=== PATIENT | male | born 1940 | race Caucasian/White ===

== ENCOUNTER 2019-04-28 13:43 | Outpatient (CLI) | payer MEDICARE, SELFPAY ==
--- NOTE | ~2019-04-28 | US_ITS ---
EXAMINATION: US pelvic limited EXAM DATE: 04/28/2019 14:41 INDICATION: Urinary retention. States unable to fill bladder. TECHNIQUE: Pelvic transabdominal sonogram was performed. There are multiple grayscale and Doppler im ages available for interpretation. There is no prior study for comparison. FINDINGS: Prevoid bladder volume was 78 mL, postvoid bladder volume was 30 mL. Bladder unremarkable. IMPRESSION: Small post void residual of 30 mL. Reviewed, dictated and finalized at location A. [employer]
== END 2019-04-28 13:44 | disposition home or self-care (01) ==
PROVIDERS: PCP Family Medicine; Visit Provider Internal Medicine Nephrology
DX: R33.9 Retention of urine, unspecified (principal)
CPT/HCPCS: 76857

== ENCOUNTER 2019-05-05 17:59 | Inpatient (IN) | payer MEDICARE, SELFPAY ==
[2019-05-05] VITALS (22 sets, daily range): BP systolic 86–117; BP diastolic 52–75; PULSE 68–102; RESP 14–26; TEMP 36.3–37.3; O2SAT 88–99; BMI 28.0
--- NOTE | ~2019-05-05 | CT_ITS ---
EXAMINATION: CT brain wo con DATE: 05/05/2019 19:27 INDICATION: Weakness. History of CVA. TECHNIQUE: Computed tomography (CT) of the head was performed without intravenous contrast. The dose- length product was 605.33 mGy-cm. Automated exposure control and iterative reconstruction technique w ere employed. COMPARISON: CT dated 12/31/2018 FINDINGS: There are chronic bilateral lacunar infarctions. Mild generalized atrophy. No acute intracr anial hemorrhage, infarction, mass or mass effect. Chronic right frontal lobe infarction, centrum gurwinder iovale. No ventriculomegaly or midline shift. Basilar cisterns are patent. There is intracranial athe rosclerosis. Paranasal sinuses and mastoids are pneumatized. No depressed skull fractures. IMPRESSION: 1. Chronic focal right frontal lobe and bilateral lacunar infarctions. 2: No acute intracranial abnormality. 3: Chronic age-related findings. Reviewed, dictated and finalized at location A.
--- NOTE | ~2019-05-05 | XR_ITS ---
XR chest 2V 05/05/2019 19:31 Indication: Cough and dyspnea. Nausea. Procedure: 2 view chest Comparison: Comparison to multiple prior studies sequentially, with oldest reviewed study dated 03/2018. Findings: Moderate cardiomegaly. Status post median sternotomy for CABG. Asymmetric left-sided airspa ce disease. Portacatheter tip in the condyle aspect of the SVC. Pacemaker lead stable. Status post me chen sternotomy for CABG. No significant pleural effusion or pneumothorax. No acute osseous abnormali ty. Impression: 1: Asymmetric left-sided airspace disease may represent asymmetric edema or pneumonia. 2: Cardiomegaly. Reviewed, dictated and finalized at location A. Impression: 1: Asymmetric left-sided airspace disease may represent asymmetric edema or pne umonia. 2: Cardiomegaly.
--- NOTE | 2019-05-05 18:33 | ED.NAVMDI ---
HPI - Nausea/Vomiting/Diarrhea General Chief complaint: Nausea/Vomiting/Diarrhea Stated complaint: N/V/D Time Seen by Provider: 05/05/19 18:30 Source: patient and RN notes reviewed Mode of arrival: EMS Limitations: no limitations History of Present Illness HPI Narrative: A 79 y/o male presents to the ED with N/V/D for the past couple days. He reports associated fever, chills, generalized weakness, SOB, and a productive cough. He states that he saw his PCP yesterday but denies being given any prescriptions, so he decided to come to the ED today. He notes that he is on Peritoneal dialysis everyday. He denies any ABD pain, CP, or vision changes. MD elicited complaint: nausea, vomiting and diarrhea Pertinent past history: abdominal surgery Onset (ago): day(s) (a couple) Associated nausea: Yes Associated abdominal pain: No Location of pain: none Associated symptoms: cough (productive), fever/chills, shortness of breath and weakness (generalized) Related Data Home Medications Medication Instructions Recorded Confirmed isosorbide mononitrate 60 mg PO DAILY PRN 05/05/19 warfarin [Coumadin] 2 mg PO DAILY@1700 05/05/19 Allergies Allergy/AdvReac Type Severity Reaction Status Date / Time albuterol Allergy Intermediate Other Verified 05/04/19 10:27 cat dander Allergy Unknown Unknown Verified 05/04/19 10:27 cigarette smoke Allergy Unknown Unknown Verified 05/04/19 10:27 simvastatin Allergy Unknown Other,irregular Verified 05/05/19 18:20 heartbeat Sulfa (Sulfonamide Allergy Unknown Unknown Verified 05/04/19 10:27 Antibiotics) CATS Allergy Unknown Unknown Uncoded 05/04/19 10:27 Review of Systems Review of Systems: Narrative: CONSTITUTIONAL: Reports fever, chills, and generalized weakness. EYES: Denies visual changes. CARDIOVASCULAR: Denies chest pain. RESPIRATORY: Reports a productive cough and dyspnea. GASTROINTESTINAL: Denies abdominal pain. Reports nausea, vomiting, or diarrhea. All systems reviewed & are unremarkable except as noted in HPI and below PMFSH Past Medical History Medical History Anemia Anxiety Atrial fibrillation BPH (benign prostatic hyperplasia) CAD (coronary artery disease) CAD (coronary artery disease) CHF (congestive heart failure) CVA (cerebral vascular accident) Depression ESRD (end stage renal disease) History of CVA (cerebrovascular accident) without residual deficits Hypertension Hypothyroidism LV (left ventricular) mural thrombus Lymphoma Peritoneal dialysis catheter dysfunction Port-A-Cath in place Rectal fistula Surgical History Surgical History AICD (automatic cardioverter/defibrillator) present H/O hernia repair History of coronary artery stent placement History of tonsillectomy Hx of cholecystectomy S/P CABG x 4 Family History Family History Sibling Family history of cardiovascular disease Father Family history of primary malignant neoplasm of liver Social History Social History Smoking status: Never smoker Second hand tobacco smoke exposure: No Alcohol intake: former Substance use: never Substance use type: does not use Additional living arrangements comments: son stays with him at night 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 HEAD: Normocephalic, atraumatic. EYES: PERRLA and EOMI. ENT: Nares clear, no rhinorrhea or epistaxis. Mucous membranes moist. NECK: Supple. CHEST: Clear to auscultation. No respiratory distress. Defibrillator in lt chest and port in rt chest. HEART: Regular rate and rhythm. No murmur heard. Normal peripheral pulses. ABDOMEN: Soft, nontender,
--- NOTE | 2019-05-05 18:50 | ECG_ITS ---
Measurements Intervals [place] Rate: 105 P: AL: 0 QRS: -47 QRSD: 149 T: 131 QT: 388 QTc: 514 Interpretive Statements ATRIAL FLUTTER/TACHYCARDIA WITH RAPID VENTRICULAR RESPONSE VENTRICULAR PREMATURE COMPLEX LEFT AXIS DEVIATION LEFT BUNDLE BRANCH BLOCK ABNORMAL ECG Electronically Signed On 05-06-2019 10:26:07 CDT by Julio C Hancock D.O.
[2019-05-05] MEDS: SODIUM CHLORIDE 0.9% IV 1,000 ML 999 ML IV CONT (19:10)
[2019-05-05 19:12] LABS: Glucose Point of Care 141 (65-105)
[2019-05-05 19:21] LABS: Basophils Percent Auto 0.3 % (0.2-1.2); Eosinophils Percent Auto 0.1 % (0-4.4); Hematocrit 34.2 % (42.0-52.0); Hemoglobin 11.1 g/dL (14.0-18.0); Immature Granulocyte Absolute 0.05 K/mm3 (0.00-0.031); Immature Granulocyte Percent A 0.4 % (0-0.5); Lymphocytes Absolute Auto 0.34 K/mm3 (0.9-3.2); Lymphocytes Percent Auto 2.9 % (18.3-44.2); Mean Corpuscular HGB Conc 32.5 g/dl (32-36); Mean Corpuscular Hemoglobin 32.9 pg (26-34); Mean Corpuscular Volume 101.5 fl (80-100); Monocytes Absolute Auto 0.8 K/mm3 (0.1-0.6); Monocytes Percent Auto 6.4 % (2.6-8.5); Neutrophils Absolute Auto 10.7 K/mm3 (1.3-6.7); Neutrophils Percent Auto 89.9 % (45.5-73.1); Red Blood Count 3.37 M/mm3 (4.6-6.20); Red Cell Distribution Width 15.4 % (11.5-14.5); White Blood Count 11.9 K/mm3 (4.5-10.0)
[2019-05-05 19:45] LABS: NT Pro B Type Natriuretic Pept > 35000 PG/ML (5-100); Troponin I 0.017 ng/mL (0.000-0.034)
[2019-05-05 19:46] LABS: Prothrombin Time 53.8 Seconds (11.1-14.7)
[2019-05-05 19:48] LABS: Albumin Level 3.3 g/dL (3.5-5.1); Aspartate Amino Transferase 25 U/L (17-59); Bilirubin,Total 0.7 mg/dL (0.2-1.3); Blood Urea Nitrogen 39 mg/dL (9-20); Carbon Dioxide 22 mmol/L (22-30); Estimated CRCL calculation 7 ml/min; Estimated Glomerular Filt Rate 6
[2019-05-05 19:49] LABS: INR 6.1
[2019-05-05 20:32] LABS: Alanine Aminotransferase 32 U/L (4-50); Alkaline Phosphatase 117 U/L (38-126); Calcium 8.3 mg/dL (8.4-10.2); Chloride 95 mmol/L (98-107); Glucose 129 mg/dL (75-110); Lipase 110 U/L (23-300); Potassium 3.9 mmol/L (3.4-5.0); Sodium 134 mmol/L (137-145)
[2019-05-05 20:35] LABS: CRP 11.2 mg/dL (<1.0)
--- NOTE | 2019-05-05 21:10 | PM.IMHP ---
H&P: HPI History of Present Illness Chief complaint: Fever, cough, nausea, vomiting, diarrhea Narrative: This is a 79 year old male well known to our Hospitalist service for multiple previous admissions who is known to have ESRD on peritoneal dialysis, paroxysmal atrial fibrillation on warfarin therapy, HTN, and previous CVA who presented to the hospital with a complaint of fever, chills, productive cough and shortness of breath over the past few days. The patient saw his PCP yesterday who told him to keep an eye on his symptoms and keep him informed. Today the patient attempted to go to the bathroom but was so weak he only made it half way out of the bed and couldn't stand up. The patient's son brought him to the hospital for evaluation. Currently he denies any chest pain, sore throat, ear pain, palpitations, wheezing, abdominal pain, worsening LE swelling, dysuria, hemautira, or rectal bleeding. Today he has an episode of diarrhea. The patient was evaluated in the ER tonight and found to have a supratherapeutic INR of 6.1. CXR demonstrated asymmetric left-sided airspace disease. The patient was started on IV antibiotics in the ER and we have been asked to admit him to the hospital for further care. The patient reports he did injur his right arm the other day and has had ecchymosis for a few days now. The patient has no other complaints at this time. Review of Systems Review of Systems: All systems reviewed & are unremarkable except as noted in HPI and below PMFSH Past Medical History Medical History Anemia Anxiety Atrial fibrillation BPH (benign prostatic hyperplasia) CAD (coronary artery disease) CAD (coronary artery disease) CHF (congestive heart failure) CVA (cerebral vascular accident) Depression ESRD (end stage renal disease) History of CVA (cerebrovascular accident) without residual deficits Hypertension Hypothyroidism LV (left ventricular) mural thrombus Lymphoma Peritoneal dialysis catheter dysfunction Port-A-Cath in place Rectal fistula Surgical History Surgical History AICD (automatic cardioverter/defibrillator) present H/O hernia repair History of coronary artery stent placement History of tonsillectomy Hx of cholecystectomy S/P CABG x 4 Family History Family History Sibling Family history of cardiovascular disease Father Family history of primary malignant neoplasm of liver Social History Social History Smoking status: Never smoker Second hand tobacco smoke exposure: No Alcohol intake: never Substance use: never Substance use type: does not use Additional living arrangements comments: son stays with him at night 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 Gender identity (if verbalized by the patient): Male Spiritual care concerns: No Agree to blood products: Yes Meds Home Medications and Allergies Home Medications Medication Instructions Recorded Confirmed Type acetaminophen [Mapap 650 mg PO Q4H PRN #30 tablet 01/02/19 05/05/19 Rx (acetaminophen)] Triphrocaps 1 cap PO DAILY #30 cap 01/22/19 05/05/19 Rx loperamide 2 mg PO PRN PRN #60 cap 01/22/19 05/05/19 Rx magnesium oxide 400 mg PO QAM #30 tablet 01/22/19 05/05/19 Rx metoprolol tartrate 25 mg PO BID #30 tablet 01/22/19 05/05/19 Rx pravastatin 80 mg PO DAILY #30 tablet 01/22/19 05/05/19 Rx sertraline 50 mg PO DAILY #30 tablet 01/22/19 05/05/19 Rx levothyroxine 75 mcg tablet 75 mcg PO DAILY #30 tablet 03/10/19 05/05/19 Rx clonazepam 0.5 mg tablet 0.5 mg PO HS #30 tablet 04/29/19 05/05/19 Rx epoetin albertina [Epogen] 10,000 units SUBCUT MONTHLY 05/05/19 05/05/19 History ergocalciferol (vitamin D2) 1,250 mcg PO WEEKLY 05/05/19 05/05/19 History [Vitamin D2] isosorbide mononitrate 60 mg PO SANTOS
--- NOTE | 2019-05-05 22:44 | ADMGEN ---
This patient, Yordy Darke, was admitted to 2 Medical Room 248-01. Patient/family oriented to hospital policies and general routines including ID bracelet, bed and alarms, visiting hours, pain management, procedures, bathroom and other care routines, personal items, smoking policy, room service/diet, and visiting hours. Valuables list has been completed. Information on how to activate the Rapid Response Team has been discussed. Patient/Family are encouraged to report perceived risks to care and to ask questions if they do not understand what they are told or what they should do.
[2019-05-06] VITALS (8 sets, daily range): BP systolic 88–112; BP diastolic 58–76; PULSE 63–84; RESP 16–20; TEMP 36.3–37.7; O2SAT 93–99
[2019-05-06 05:16] LABS: Basophils Percent Auto 0.3 % (0.2-1.2); Eosinophils Percent Auto 0.2 % (0-4.4); Hematocrit 30.7 % (42.0-52.0); Immature Granulocyte Absolute 0.05 K/mm3 (0.00-0.031); Immature Granulocyte Percent A 0.5 % (0-0.5); Lymphocytes Absolute Auto 1.13 K/mm3 (0.9-3.2); Mean Corpuscular HGB Conc 32.6 g/dl (32-36); Mean Corpuscular Hemoglobin 32.9 pg (26-34); Mean Platelet Volume 11.1 fl (7.4-10.4); Monocytes Absolute Auto 0.9 K/mm3 (0.1-0.6); Monocytes Percent Auto 8.6 % (2.6-8.5); Neutrophils Absolute Auto 8.2 K/mm3 (1.3-6.7); Neutrophils Percent Auto 79.4 % (45.5-73.1); Platelet Count Result 146 k/mm3 (150-375); Red Blood Count 3.04 M/mm3 (4.6-6.20); Red Cell Distribution Width 15.2 % (11.5-14.5); White Blood Count 10.3 K/mm3 (4.5-10.0)
[2019-05-06 05:17] LABS: Prothrombin Time 64.8 Seconds (11.1-14.7)
[2019-05-06 05:19] LABS: Partial Thromboplastin Time 92.3 SECONDS (22.3-36.8)
[2019-05-06 05:23] LABS: Blood Urea Nitrogen 43 mg/dL (9-20); Calcium 7.8 mg/dL (8.4-10.2); Carbon Dioxide 23 mmol/L (22-30); Chloride 98 mmol/L (98-107); Estimated CRCL calculation 7 ml/min; Estimated Glomerular Filt Rate 6; Glucose 81 mg/dL (75-110); Magnesium 1.3 mg/dL (1.6-2.3); Potassium 4.4 mmol/L (3.4-5.0); Sodium 132 mmol/L (137-145)
[2019-05-06] MEDS: LEVOTHYROXINE SODIUM 75 MCG TABLET PO (05:47)
[2019-05-06 05:53] LABS: INR 7.8
[2019-05-06] MEDS: PHYTONADIONE 2.5 MG TAB PO (06:48)
[2019-05-06] MEDS: PRAVASTATIN SODIUM 20 MG TABLET 80 MG PO (08:47)
[2019-05-06] MEDS: SERTRALINE HCL 50 MG TABLET PO (08:47)
[2019-05-06] MEDS: MAGNESIUM OXIDE 400 MG TABLET PO (08:47)
[2019-05-06] MEDS: POTASSIUM CHLORIDE 10 MEQ TABLET.ER 30 MEQ PO (08:47)
[2019-05-06] MEDS: VITAMIN B CMPLX/VIT C/FOLIC AC 1 CAPSULE 1 CAP PO (08:58)
[2019-05-06] MEDS: METOPROLOL TARTRATE 25 MG TABLET PO (09:03)
--- NOTE | 2019-05-06 10:04 | PM.CNCAR ---
Assessment and Plan Additional Plan 79-year-old white male with complex cardiac history including coronary artery disease, severely depressed left ventricular systolic function, aortic valve stenosis, previous CABG and PCI and about presence of a AICD. He enters the hospital with a febrile illness and is being treated with antibiotics. His INR because of his illness is supratherapeutic and his Coumadin is appropriately been placed on hold. There are no specific cardiac recommendations at this time other than to resume the Coumadin when his INR gets down to her approaches 2.0. Clay Groves MD [facility] History of Present Illness History of Present Illness Consult date/time: Date of service: 05/06/19 10:04 Reason For Visit: Fever, cough, nausea, vomiting, diarrhea Narrative: This is a 79-year-old patient with a history of coronary artery disease, valvular heart disease and paroxysmal atrial fibrillation. He also has a severe ischemic cardiomyopathy and has an indwelling defibrillator. The patient's of follow-up machine grainer is Dr. Cm of our practice. He was hospitalized yesterday with a a febrile illness coughing and generalized weakness and was admitted for further evaluation and management. The patient also has end-stage renal disease and is on chronic peritoneal dialysis. He has had generalized weakness coughing and some sinus congestion/headache. He for the last 4-5 days prior to admission had had fevers at home with temperatures up to about 100.5? F orally. He was seen in the emergency room and admitted to the hospital service for further evaluation and management. None of the notes in the chart talk about her express any particular concern regarding his cardiac status so it was initially not clear why the point of 1st us seeing the patient in consultation was intended to be. According to the patient we were consulted to see him because his INR is high and out of normal range. He is anticoagulated with Coumadin because of his history of paroxysmal atrial fibrillation. He is currently is sinus rhythm with occasional PVCs. His Coumadin dosage currently has been on 2 mg per day. INR was 6.1 on admission obviously his Coumadin was placed on hold. The patient has a history of coronary artery disease and underwent bypass grafting in 2000. He had PCI performed with stenting in [facility] in 2013 and I believe a defibrillator implanted around the same time. He developed a history of a problematic, symptomatic ascitic fluid that was recurrent was found apparently to be related to lymphoma. He is being treated with chemotherapy by Dr. Haskins. He denies any current or recent symptoms with ischemic type chest pain he is not aware of any palpitations orthopnea PND or edema. He is also known to have aortic valve disease follow-up echoes at our office have demonstrated with a valve area of about 1.0 cm2 he is very low ejection fraction in the 20-25% range by several recent/previous echocardiograms. Review of Systems Constitutional: Constitutional: Reports chills Comments: Fever as noted in the HPI Eyes: Eyes: Reports no additional eye complaints ENT: Reports nasal congestion Cardiovascular: Cardiovascular: Reports no additional cardiovascular complaints Respiratory: Respiratory: Reports cough Comments: Cough is primarily dry and nonproductive Gastrointestinal: Gastrointestinal: Reports no additional gastrointestinal complaints Musculoskeletal: Musculoskeletal: Reports no additional musculoskeletal complaints Integumentary/Breasts: Skin/Breast: Reports system reviewed and no additional complaints, except as docu Neurologic: Reports system reviewed and no additional complaints, except as documented Endocrine: Endocrine: Reports no additional endocrine complaints Hematologic/Lymphatic: Hematologic/Lymphatic: Reports easy bruising PMFSH Past Medical History Medical History
--- NOTE | 2019-05-06 12:47 | PM.IMPN ---
Progress Note: A&P Assessment and Plan (1) Pneumonia: Qualifiers: Laterality: left Lung location: lower lobe of lung Pneumonia type: due to unspecified organism Qualified Code(s): J18.9 - Pneumonia, unspecified organism Code(s): J18.9 - Pneumonia, unspecified organism Status: Acute Assessment and Plan: May very well be viral pneumonia vs bacterial We will continue IV Rocephin and azithro that were started in the ER. Blood and sputum cultures pending Continue bronchodilators. Antitussive medications. Light IV hydration overnight Continue symptomatic treatment Monitor (2) Weakness: Code(s): R53.1 - Weakness Status: Acute Assessment and Plan: Likely secondary to chronic debility and acute illness. This has improved today PT/OT evaluation ordered (3) Supratherapeutic INR: Code(s): R79.1 - Abnormal coagulation profile Status: Acute Assessment and Plan: INR 7.8 today. Cardiology consulted and appreciate recommendations. No signs of acute active hemorrhaging. H&H stable Hold Warfarin Monitor PT/INR Resume warfarin when appropriate per Cardiology recommendations (4) HLD (hyperlipidemia): Qualifiers: Hyperlipidemia type: unspecified Qualified Code(s): E78.5 - Hyperlipidemia, unspecified Code(s): E78.5 - Hyperlipidemia, unspecified Status: Chronic Assessment and Plan: Continue pravastatin. (5) Hypothyroidism: Qualifiers: Hypothyroidism type: acquired Qualified Code(s): E03.9 - Hypothyroidism, unspecified Code(s): E03.9 - Hypothyroidism, unspecified Status: Chronic Assessment and Plan: Continue levothyroxine. (6) CHF (congestive heart failure): Qualifiers: Heart failure type: unspecified Heart failure chronicity: chronic Qualified Code(s): I50.9 - Heart failure, unspecified Code(s): I50.9 - Heart failure, unspecified Status: Chronic Assessment and Plan: Well compensated. Monitor fluid status, Is and Os and daily weights. (7) Atrial fibrillation: Qualifiers: Atrial fibrillation type: longstanding persistent Qualified Code(s): I48.11 - Longstanding persistent atrial fibrillation Code(s): I48.91 - Unspecified atrial fibrillation Status: Chronic Assessment and Plan: The patient is currently anticoagulated. Resumed metoprolol today Continue metoprolol Monitor closely Hold metoprolol if hypotensive (8) ESRD (end stage renal disease): Code(s): N18.6 - End stage renal disease Status: Chronic Assessment and Plan: Nephrology consultation to continue peritoneal dialysis. (9) Hypertension: Qualifiers: Hypertension type: essential hypertension Qualified Code(s): I10 - Essential (primary) hypertension Code(s): I10 - Essential (primary) hypertension Status: Chronic Assessment and Plan: Stable. Improved from yesterday; 110s sys today. Monitor blood pressure. Hold home isosorbide mononitrate; Resume when appropriate. Additional Plan Subjective Date/time seen: 05/06/19 12:47 Interval history: Patient is a 79 yo M well known to our Hospitalist service for multiple previous admissions who is known to have ESRD on peritoneal dialysis, paroxysmal atrial fibrillation on warfarin therapy, HTN, and previous CVA who is here for treatment of PNA and evaluation for supratherapeutic INR. Patient tells me he feels much better today. His N/V and cough have improved. No subjective fevers. He feels his strength has improved as he wa
--- NOTE | 2019-05-06 17:36 | PM.CNNEP ---
Assessment and Plan Assessment and plan (1) ESRD (end stage renal disease): Code(s): N18.6 - End stage renal disease Status: Chronic (2) Pneumonia: Qualifiers: Laterality: left Lung location: lower lobe of lung Pneumonia type: due to unspecified organism Qualified Code(s): J18.9 - Pneumonia, unspecified organism Code(s): J18.9 - Pneumonia, unspecified organism Status: Acute (3) Supratherapeutic INR: Code(s): R79.1 - Abnormal coagulation profile Status: Acute (4) Ischemic cardiomyopathy: Code(s): I25.5 - Ischemic cardiomyopathy Status: Acute Assessment and Plan: . (5) Weakness: Code(s): R53.1 - Weakness Status: Acute Assessment and Plan: . Additional Plan Yordy has end stage renal disease. He will started back on his nightly peritoneal dialysis regimen tonight. He also appears to have pneumonia as evidenced by imaging studies in the ER. He has been started on IV antibiotic therapy for treatment of this issue with cultures pending at this time. His anemia and other CKD parameters appear to be relatively stable at this time. As I already mentioned, I will reinstitute his peritoneal dialysis this evening more so to maintain stability in his volume status and electrolytes as well as provide clearance of the uremic toxins that maybe potentiate by this underlying infection. I will follow the trend of his H and H, reinstitute Epogen therapy if his hemoglobin continues to drop, but currently he is within range if not at goal. I will continue to follow his CKD parameters while he remains hospitalized and make further interventions with his dialysis treatment and medications as deemed necessary. I will continue to follow the patient with you while he remains hospitalized and make further recommendations during his hospital course. Thank you for allowing me to participate in care of this patient. History of Present Illness Reason for Consult Consult date: 05/06/19 Reason for consult: end stage renal disease Chief Complaint Chief complaint: Pneumonia, Elevated BNP, Weakness History of Present Illness Narrative: The patient is a 79 year old male with a past medical history as outlined below who presented to the [facility] ER with a complaints of fever, chills, productive cough and shortness of breath. These symptoms have been present for the last several days. He saw his PCP yesterday who told him to keep an eye on his symptoms and alert him if his symptoms worsened or changed. On the day of admission, he attempted to use the bathroom but was so weak he only made it half way out of the bed and could not stand or ambulate any further. The patient's son brought him to the hospital for further evaluation. He reports no chest pain, sore throat, palpitations, wheezing, abdominal pain, worsening LE swelling, hematochezia or melena. Workup and evaluation in the emergency room demonstrated the patient to be hemodynamically stable and in no acute distress. Routine blood test demonstrated labs consistent with his known history of end-stage renal disease was also found to have a supratherapeutic INR of 6.1. His chest x-ray was noteworthy for a left-sided left-sided airspace disease concerning for possible pneumonia. Appropriate cultures were obtained and he was started on IV antibiotic therapy and subsequently admitted to the hospital for further evaluation and therapy. Renal consultation was requested due to his end-stage renal disease. The patient normally performs daily peritoneal dialysis every evening and has been doing reasonably well with his PD treatments in general. He normally he dialyzes via [facility] under the care of Dr. Ed Velazco. From a dialysis perspective, he has been doing reasonably well with stability in his volume status, electrolytes, and adequate clearance of the uremic toxins. Currently, at
[2019-05-06] MEDS: ACETAMINOPHEN 325 MG TABLET 650 MG PO (20:45)
[2019-05-06] MEDS: SODIUM CHLORIDE 0.9% IV 500 ML 999 ML IV CONT (22:20)
[2019-05-07] VITALS (9 sets, daily range): BP systolic 102–122; BP diastolic 60–72; PULSE 70–87; RESP 18–20; TEMP 36.3–37.1; O2SAT 97–100
[2019-05-07 05:43] LABS: Basophils Percent Auto 0.9 % (0.2-1.2); Eosinophils Absolute Auto 0.2 K/mm3 (0-0.3); Eosinophils Percent Auto 3.2 % (0-4.4); Hematocrit 30.5 % (42.0-52.0); Immature Granulocyte Absolute 0.03 K/mm3 (0.00-0.031); Immature Granulocyte Percent A 0.6 % (0-0.5); Lymphocytes Absolute Auto 1.17 K/mm3 (0.9-3.2); Lymphocytes Percent Auto 25.3 % (18.3-44.2); Mean Corpuscular HGB Conc 32.8 g/dl (32-36); Mean Corpuscular Hemoglobin 32.9 pg (26-34); Mean Corpuscular Volume 100.3 fl (80-100); Mean Platelet Volume 10.7 fl (7.4-10.4); Monocytes Absolute Auto 0.6 K/mm3 (0.1-0.6); Monocytes Percent Auto 13.8 % (2.6-8.5); Neutrophils Absolute Auto 2.6 K/mm3 (1.3-6.7); Neutrophils Percent Auto 56.2 % (45.5-73.1); Platelet Count Result 147 k/mm3 (150-375); Red Blood Count 3.04 M/mm3 (4.6-6.20); Red Cell Distribution Width 15.1 % (11.5-14.5); White Blood Count 4.6 K/mm3 (4.5-10.0)
[2019-05-07 05:48] LABS: INR 3.2; Prothrombin Time 32.1 Seconds (11.1-14.7)
[2019-05-07 05:49] LABS: Partial Thromboplastin Time 83.2 SECONDS (22.3-36.8)
[2019-05-07 06:00] LABS: Albumin Level 2.7 g/dL (3.5-5.1); Blood Urea Nitrogen 39 mg/dL (9-20); Calcium 7.9 mg/dL (8.4-10.2); Carbon Dioxide 24 mmol/L (22-30); Chloride 98 mmol/L (98-107); Estimated CRCL calculation 6 ml/min; Estimated Glomerular Filt Rate 6; Glucose 135 mg/dL (75-110); Magnesium 1.4 mg/dL (1.6-2.3); Phosphorus 4.5 mg/dL (2.5-4.5); Potassium 3.5 mmol/L (3.4-5.0); Sodium 131 mmol/L (137-145)
[2019-05-07] MEDS: LEVOTHYROXINE SODIUM 75 MCG TABLET PO (06:04)
--- NOTE | 2019-05-07 09:02 | PM.IMPN ---
Progress Note: A&P Assessment and Plan (1) Pneumonia: Qualifiers: Laterality: left Lung location: lower lobe of lung Pneumonia type: due to unspecified organism Qualified Code(s): J18.9 - Pneumonia, unspecified organism Code(s): J18.9 - Pneumonia, unspecified organism Status: Acute Assessment and Plan: May very well be viral pneumonia vs bacterial We will continue IV Rocephin and azithro that were started in the ER. Blood cultures negative to date. Sputum culture to be collected Continue bronchodilators. Antitussive medications. Light IV hydration overnight Continue symptomatic treatment Monitor (2) Weakness: Code(s): R53.1 - Weakness Status: Acute Assessment and Plan: Likely secondary to chronic debility and acute illness. This has improved today PT/OT evaluation ordered (3) Supratherapeutic INR: Code(s): R79.1 - Abnormal coagulation profile Status: Acute Assessment and Plan: INR 3.2 today. Cardiology consulted and appreciate recommendations. No signs of acute active hemorrhaging. H&H stable Hold Warfarin Monitor PT/INR Resume warfarin when appropriate per Cardiology recommendations (4) HLD (hyperlipidemia): Qualifiers: Hyperlipidemia type: unspecified Qualified Code(s): E78.5 - Hyperlipidemia, unspecified Code(s): E78.5 - Hyperlipidemia, unspecified Status: Chronic Assessment and Plan: Continue pravastatin. (5) Hypothyroidism: Qualifiers: Hypothyroidism type: acquired Qualified Code(s): E03.9 - Hypothyroidism, unspecified Code(s): E03.9 - Hypothyroidism, unspecified Status: Chronic Assessment and Plan: Continue levothyroxine. (6) CHF (congestive heart failure): Qualifiers: Heart failure chronicity: chronic Heart failure type: unspecified Qualified Code(s): I50.9 - Heart failure, unspecified Code(s): I50.9 - Heart failure, unspecified Status: Chronic Assessment and Plan: Well compensated. Monitor fluid status, Is and Os and daily weights. (7) Atrial fibrillation: Qualifiers: Atrial fibrillation type: longstanding persistent Qualified Code(s): I48.11 - Longstanding persistent atrial fibrillation Code(s): I48.91 - Unspecified atrial fibrillation Status: Chronic Assessment and Plan: The patient is currently anticoagulated. Resumed metoprolol today Metoprolol held this last night and this morning; like resume tonight at 12.5 mg dose Monitor closely Continue to hold metoprolol if hypotensive (8) ESRD (end stage renal disease): Code(s): N18.6 - End stage renal disease Status: Chronic Assessment and Plan: Nephrology consultation to continue peritoneal dialysis. (9) Hypertension: Qualifiers: Hypertension type: essential hypertension Qualified Code(s): I10 - Essential (primary) hypertension Code(s): I10 - Essential (primary) hypertension Status: Chronic Assessment and Plan: Hypotensive and symptomatic last night; metoprolol held since then. Stable now, but soft this morning; patient asymptomatic while in bed currently. 100s sys today. Monitor blood pressure. Hold metoprolol this morning; resume this evening at half (12.5 mg) the home dose Q12hr Hold home isosorbide mononitrate; Resume when appropriate. Cardiology following and appreciate recommendations Additional Plan Subjective Date/time seen: 05/07/19 09:02 Interval history: Patient is a 79 yo M well known to our Hospitalist service for multiple
[2019-05-07] MEDS: SERTRALINE HCL 50 MG TABLET PO (09:10)
[2019-05-07] MEDS: POTASSIUM CHLORIDE 20 MEQ PACKET (FOR LIQUID) PO (09:10)
[2019-05-07] MEDS: PRAVASTATIN SODIUM 20 MG TABLET 80 MG PO (09:10)
[2019-05-07] MEDS: MAGNESIUM SULF 1 GM/D5W 100 ML 1 GM/100 ML BAG IVPB (09:10)
[2019-05-07] MEDS: MAGNESIUM OXIDE 400 MG TABLET PO (09:11)
[2019-05-07] MEDS: VITAMIN B CMPLX/VIT C/FOLIC AC 1 CAPSULE 1 CAP PO (09:11)
[2019-05-07] MEDS: POTASSIUM CHLORIDE 10 MEQ TABLET.ER 30 MEQ PO (09:11)
--- NOTE | 2019-05-07 11:12 | PM.PNNEP ---
Progress Note: A&P Assessment and Plan (1) ESRD (end stage renal disease): Code(s): N18.6 - End stage renal disease Status: Chronic Assessment and Plan: continue nightly CCPD while hospitalized electrolytes, volume status, and clearance appear acceptable (2) Pneumonia: Qualifiers: Laterality: left Lung location: lower lobe of lung Pneumonia type: due to unspecified organism Qualified Code(s): J18.9 - Pneumonia, unspecified organism Code(s): J18.9 - Pneumonia, unspecified organism Status: Acute Assessment and Plan: as noted by admission imaging viral versus bacterial (?) remains on antibiotic therapy (3) Supratherapeutic INR: Code(s): R79.1 - Abnormal coagulation profile Status: Acute Assessment and Plan: INR coming down follow trend (4) Ischemic cardiomyopathy: Code(s): I25.5 - Ischemic cardiomyopathy Status: Acute Assessment and Plan: appears compensated at this time follow volume status closely (5) Weakness: Code(s): R53.1 - Weakness Status: Acute Assessment and Plan: presumably due to acute illness/infection PT/OT as tolerated Will continue to follow. Subjective Date/time seen: 05/07/19 11:12 Tolerated CCPD treatment (seen on PD earlier this AM) overnight; issues with relative hypotension overnight/this AM; no other new symptoms or problems at this time. Exam Narrative: Exam Narrative: General: WD/WN male/female in NAD Heart: normal S1 and S2; no rub Lungs: few crackles at left lung base Abdomen: soft, nontender, nondistended, positive bowel sounds Extremities: no cyanosis or clubbing; no edema Skin: warm and dry Objective Data Vital Signs Vital Signs: Vital Signs Temp Pulse Resp BP Pulse Ox 05/07/19 08:46 36.6 C 80 20 104/60 98 05/07/19 08:04 37.1 C 75 20 106/61 05/07/19 05:59 37.1 C 75 20 106/61 98 05/07/19 00:09 106/72 05/06/19 22:01 36.4 C L 65 16 88/58 L 96 05/06/19 21:45 36.4 C 05/06/19 20:45 37.7 C H 05/06/19 14:00 36.3 C L 68 20 112/58 L 99 Intake/Output Intake/Output: Intake & Output 05/04/19 05/05/19 05/06/19 05/07/19 23:59 23:59 23:59 23:59 Intake Total 1300 2650 780 Output Total 0 1454 Balance 1300 2650 -674 Meds/Results Medications: Active Medications Generic Name Dose Route Start Last Admin Trade Name Freq PRN Reason Stop Dose Admin Acetaminophen 650 mg 05/05/19 20:33 05/06/19 20:45 Tylenol Tablet PO 650 mg Q4H PRN Administration Mild Pain (1-3) or Fever Guaifenesin/Dextromethorphan 5 ml 05/05/19 21:49 Robitussin-Dm Syrup PO Q4H PRN Cough Ceftriaxone Sodium/Dextrose 1 gm in 50 mls @ 100 mls/hr 05/06/19 18:00 05/06/19 18:53 Rocephin 1 Gm/D5w 50 Ml IVPB Infused QPM XUAN Infusion Azithromycin 500 mg in 250 mls @ 250 mls/hr 05/06/19 21:00 05/06/19 22:21 Zithromax IVPB Infused HS XUAN Infusion Levothyroxine Sodium 75 mcg 05/06/19 06:30 05/07/19 06:04 Synthroid PO 75 mcg DAILY@0630 XUAN Administration Magnesium Oxide 400 mg 05/06/19 09:00 05/07/19 09:11 Mag-Ox PO 400 mg QAM XUAN Administration Metoprolol Tartrate 12.5 mg 05/07/19 21:00 Lopressor PO Q12HR XUAN Potassium Chloride 30 meq 05/06/19 09:00 05/07/19 09:11 Kcl Tablet PO 30 meq DAILY XUAN Administration Pravastatin Sodium 80 mg 05/06/19 09:00 05/07/19 09:10 Pravastatin Sodium PO 80 mg DAILY XUAN Administration Sertraline HCl 50 mg 05/06/19 09:00 05/07/19 09:10 Zoloft PO 50 mg DAILY XUAN Administration Vitamin B Complex/Folic Acid 1 cap 05/06/19 09:00 05/07/19 09:11 Nephrocaps Softgel PO 1 cap DAILY XUAN Administration Radiology Results: ITS Impressions Head CT 05/05/19 19:29 IMPRESSION: 1. Chronic focal right frontal lobe and bilateral lacunar infarctions. 2: No acute intracranial
[2019-05-07] MEDS: METOPROLOL TARTRATE 12.5 MG TABLET PO (20:44)
[2019-05-08 05:30] LABS: Basophils Absolute Auto 0.1 K/mm3 (0.0-0.1); Basophils Percent Auto 0.9 % (0.2-1.2); Eosinophils Absolute Auto 0.2 K/mm3 (0-0.3); Hematocrit 32.8 % (42.0-52.0); Hemoglobin 10.6 g/dL (14.0-18.0); Immature Granulocyte Absolute 0.04 K/mm3 (0.00-0.031); Immature Granulocyte Percent A 0.7 % (0-0.5); Lymphocytes Absolute Auto 1.17 K/mm3 (0.9-3.2); Lymphocytes Percent Auto 21.7 % (18.3-44.2); Mean Corpuscular HGB Conc 32.3 g/dl (32-36); Mean Corpuscular Hemoglobin 32.8 pg (26-34); Mean Corpuscular Volume 101.5 fl (80-100); Monocytes Absolute Auto 0.7 K/mm3 (0.1-0.6); Neutrophils Absolute Auto 3.3 K/mm3 (1.3-6.7); Neutrophils Percent Auto 60.7 % (45.5-73.1); Platelet Count Result 170 k/mm3 (150-375); Red Blood Count 3.23 M/mm3 (4.6-6.20); Red Cell Distribution Width 14.8 % (11.5-14.5); White Blood Count 5.4 K/mm3 (4.5-10.0)
[2019-05-08 05:43] LABS: Blood Urea Nitrogen 39 mg/dL (9-20); Carbon Dioxide 24 mmol/L (22-30); Chloride 97 mmol/L (98-107); Estimated CRCL calculation 7 ml/min; Estimated Glomerular Filt Rate 6; Glucose 98 mg/dL (75-110); Magnesium 1.6 mg/dL (1.6-2.3); Potassium 3.8 mmol/L (3.4-5.0); Sodium 132 mmol/L (137-145)
[2019-05-08 05:46] LABS: INR 2.1; Prothrombin Time 23.5 Seconds (11.1-14.7)
[2019-05-08 05:47] LABS: Partial Thromboplastin Time 59.4 SECONDS (22.3-36.8)
[2019-05-08 06:00] VITALS: BP 116/67; PULSE 81; RESP 20; TEMP 36.5; O2SAT 98
[2019-05-08] MEDS: LEVOTHYROXINE SODIUM 75 MCG TABLET PO (06:14)
[2019-05-08 06:21] LABS: Hepatitis B Surface Antigen Negative (Negative)
[2019-05-08 08:00] VITALS: PULSE 81; RESP 20; O2SAT 98
[2019-05-08] MEDS: MAGNESIUM OXIDE 400 MG TABLET PO (09:03)
[2019-05-08] MEDS: VITAMIN B CMPLX/VIT C/FOLIC AC 1 CAPSULE 1 CAP PO (09:03)
[2019-05-08] MEDS: CEFDINIR 300 MG CAPSULE PO (09:03)
[2019-05-08] MEDS: SERTRALINE HCL 50 MG TABLET PO (09:03)
[2019-05-08] MEDS: POTASSIUM CHLORIDE 10 MEQ TABLET.ER 30 MEQ PO (09:03)
[2019-05-08] MEDS: PRAVASTATIN SODIUM 20 MG TABLET 80 MG PO (09:04)
--- NOTE | 2019-05-08 09:50 | PM.DS ---
DS: Diagnosis Admitting Diagnosis Admitting Diagnosis: Pneumonia, unspecified organism Discharge Diagnosis (1) Pneumonia: Qualifiers: Laterality: left Lung location: lower lobe of lung Pneumonia type: due to unspecified organism Qualified Code(s): J18.9 - Pneumonia, unspecified organism Code(s): J18.9 - Pneumonia, unspecified organism Status: Acute Assessment and Plan: Viral pneumonia vs bacterial; clinically shown improvement during hospital course. Minimal SOB/cough today. On RA. Afebrile. VSS. WBC WNL today We will continue antibiotic treatment with azithromycin PO tonight and tomorrow and cefdinir through 05/10 to complete a 7 day total course of antibiotics. Blood cultures negative to date. Sputum culture ordered but not collected Will discharge on probiotics during treatment course due to diarrhea Continue mucinex Discharge home. Patient did not wish to get HH PT/OT on discharge as this was recommended; he was intrerested in going to OP therapy or joining a gym. Will have him follow up with PCP (2) Weakness: Code(s): R53.1 - Weakness Status: Acute Assessment and Plan: Likely secondary to chronic debility and acute illness. This has improved during stay PT/OT evaluation ordered (3) Supratherapeutic INR: Code(s): R79.1 - Abnormal coagulation profile Status: Acute Assessment and Plan: INR 2.1 today. Cardiology consulted and appreciate recommendations. No signs of acute active hemorrhaging. H&H stable Continue Warfarin at discharge PT/INR per Cardiology (4) HLD (hyperlipidemia): Qualifiers: Hyperlipidemia type: unspecified Qualified Code(s): E78.5 - Hyperlipidemia, unspecified Code(s): E78.5 - Hyperlipidemia, unspecified Status: Chronic Assessment and Plan: Continue pravastatin. (5) Hypothyroidism: Qualifiers: Hypothyroidism type: acquired Qualified Code(s): E03.9 - Hypothyroidism, unspecified Code(s): E03.9 - Hypothyroidism, unspecified Status: Chronic Assessment and Plan: Continue levothyroxine. (6) CHF (congestive heart failure): Qualifiers: Heart failure chronicity: chronic Heart failure type: unspecified Qualified Code(s): I50.9 - Heart failure, unspecified Code(s): I50.9 - Heart failure, unspecified Status: Chronic Assessment and Plan: Well compensated. Monitor fluid status, Is and Os and daily weights. (7) Atrial fibrillation: Qualifiers: Atrial fibrillation type: longstanding persistent Qualified Code(s): I48.11 - Longstanding persistent atrial fibrillation Code(s): I48.91 - Unspecified atrial fibrillation Status: Chronic Assessment and Plan: The patient is currently anticoagulated. Patient sypmtomatic on halved metoprolol last night Metoprolol held; further recommendations per Cardiology Follow up with Cardiology (8) ESRD (end stage renal disease): Code(s): N18.6 - End stage renal disease Status: Chronic Assessment and Plan: Nephrology consultation to continue peritoneal dialysis. (9) Hypertension: Qualifiers: Hypertension type: essential hypertension Qualified Code(s): I10 - Essential (primary) hypertension Code(s): I10 - Essential (primary) hypertension Status: Chronic Assessment and Plan: BP soft and symptomatic last night; metoprolol held since then. 110s sys today Hold metoprolol this morning Hold home isosorbide mononitrate Cardiology following and appreciate recommendations DS: Summary Hosp
--- NOTE | 2019-05-08 10:41 | PM.PNCARD ---
Progress Note: A&P Assessment and Plan (1) Pneumonia: Qualifiers: Laterality: left Lung location: lower lobe of lung Pneumonia type: due to unspecified organism Qualified Code(s): J18.9 - Pneumonia, unspecified organism Code(s): J18.9 - Pneumonia, unspecified organism Status: Acute Assessment and Plan: Resolving (2) Supratherapeutic INR: Code(s): R79.1 - Abnormal coagulation profile Status: Acute Assessment and Plan: Warfarin has been held, INR down to 2.1. Agree with resuming warfarin 2 mg daily. Patient asked to check an INR on Thursday and call our office for results (3) Ischemic cardiomyopathy: Code(s): I25.5 - Ischemic cardiomyopathy Status: Acute Assessment and Plan: Stable ischemic cardiomyopathy. Off metoprolol because of dizziness and abdominal cramps. I will ask our office to call him mid week for heart rate and blood pressure and perhaps resume at half a dose daily. Has appointment to see Dr. Cm in June. Subjective Date/time seen: 05/08/19 10:41 Interval history: Patient with ischemic cardiomyopathy, PAF on warfarin admitted with nausea, vomiting, diarrhea, and pneumonia as well as a high INR whom we were asked to follow. Date of service: 05/08/2019 Patient up and about in his room, feeling better, off oxygen, no SOB with minor activities. Or still not able to tolerate half dose metoprolol yesterday due to lightheadedness and abdominal cramps. Did PD this a.m. Review of Systems Constitutional: Constitutional: Reports fatigue Eyes: Eyes: Denies blurry vision ENT: Denies epistaxis Cardiovascular: Cardiovascular: Denies chest pain, Denies leg edema and Reports lightheadedness Respiratory: Respiratory: Denies chest congestion, Reports cough and Denies dyspnea Gastrointestinal: Gastrointestinal: Denies abdominal pain Neurologic: Denies confusion Psychiatric: Psychiatric: Denies confusion Exam Const: General: comfortable and no acute distress HENMT: Mouth: Yes moist mucous membranes Eyes: EOM: EOMs intact bilaterally Neck: Neck: supple and no JVD Resp: Effort & Inspection: normal respiratory effort Auscultation: rales (Scattered rales in left lower) Cardio: Rate: regular rate Rhythm: regular rhythm and abnormal rhythm with ectopic beats Heart sounds: Murmur heart sound present (2/6 apical murmur) GI: Auscultation: normal bowel sounds Skin: General skin exam: normal color Neuro: Cognition (Neuro): normal cognition Speech: normal speech Extrem: Right lower extremity: no edema Left lower extremity: no edema Psych: Mental Status: mental status grossly normal Objective Data Vital Signs Vital Signs: Vital Signs - 24 hr 05/07/19 14:00 05/07/19 19:04 05/07/19 20:25 Temperature 97.4 F L 97.4 F L Pulse Rate 70 70 Respiratory Rate 18 18 Blood Pressure 102/66 102/66 122/68 Pulse Oximetry 100 05/07/19 22:00 05/08/19 06:00 05/08/19 08:00 Temperature 97.5 F L 97.7 F Pulse Rate 87 81 81 Respiratory Rate 18 20 20 Blood Pressure 102/69 116/67 Pulse Oximetry 97 98 98 Intake/Output Intake/Output: Intake & Output 05/05/19 05/06/19 05/07/19 05/08/19 23:59 23:59 23:59 23:59 Intake Total 1300 2650 2550 190 Output Total 0 1454 0 Balance 1300 2650 1096 190 Meds/Results Medications: Active Medications Generic Name Dose Route Start Last Admin Trade Name Freq PRN Reason Stop Dose Admin Acetaminophen 650 mg 05/05/19 20:33 05/06/19 20:45 Tylenol Tablet PO 650 mg Q4H PRN Administration Mild Pain (1-3) or Fever Azithromycin 500 mg 05/08/19 17:00 Zithromax Tablet PO 05/09/19 17:00 1700 XUAN Cefdinir 300 mg 05/08/19 09:00 05/08/19 09:03 Omnicef PO 300 mg Q12HR XUAN Administration Guaifenesin/Dextromethorphan 5 ml 05/05/19 21:49 Robitussin-Dm Syrup PO Q4H PRN Cough Levothyroxine Sodium 75 mcg 05/06/19 06:30 05/08/19 06:14 Synthroid
== END 2019-05-08 15:22 | disposition home health service (06) | DRG 193 ==
LOC: ANHED 20:38 → ANH2MED 21:06
PROVIDERS: Internal Medicine Nephrology; Physician Assistant; Admitting Provider Family Medicine; Emergency Provider Emergency Medicine; PCP Family Medicine; Visit Provider Family Medicine
DX: J18.9 Pneumonia, unspecified organism (principal); N18.6 End stage renal disease; I13.2 Hypertensive heart and chronic kidney disease with heart failure and with stage 5 chronic kidney disease, or end stage renal disease; Z99.2 Dependence on renal dialysis; I48.0 Paroxysmal atrial fibrillation; Z79.01 Long term (current) use of anticoagulants; N40.0 Benign prostatic hyperplasia without lower urinary tract symptoms; I25.10 Atherosclerotic heart disease of native coronary artery without angina pectoris; I50.9 Heart failure, unspecified; E03.9 Hypothyroidism, unspecified; Z85.72 Personal history of non-Hodgkin lymphomas; Z95.810 Presence of automatic (implantable) cardiac defibrillator; F41.8 Other specified anxiety disorders; Z95.5 Presence of coronary angioplasty implant and graft; Z90.49 Acquired absence of other specified parts of digestive tract; Z95.1 Presence of aortocoronary bypass graft; I35.0 Nonrheumatic aortic (valve) stenosis; R79.1 Abnormal coagulation profile; I25.5 Ischemic cardiomyopathy; D63.1 Anemia in chronic kidney disease
CPT/HCPCS: 36415; 70450; 71046; 80048; 80053; 80069; 82948; 83605; 83690; 83735; 83880; 84484; 85025; 85610; 85730; 86140; 87040; 87340; 87804; 90945; 93005; 96361; 96365; 96368; 97110; 97116; 97161; 97165; 97530; 97535; 99285; A9270; G0378; J0456; J0696; J3475; J7030; J7040

== ENCOUNTER 2019-06-09 13:59 | Inpatient (IN) | payer MEDICARE, SELFPAY ==
[2019-06-09] VITALS (15 sets, daily range): BP systolic 103–111; BP diastolic 62–78; PULSE 116–121; RESP 14–25; TEMP 36.3–36.7; O2SAT 97–100; BMI 27.4
--- NOTE | 2019-06-09 14:37 | ED.GIBLEED ---
HPI - GI Bleed General Chief complaint: GI Bleed Stated complaint: GI Bleed Time Seen by Provider: 06/09/19 14:27 Source: patient, RN notes reviewed and old records reviewed Mode of arrival: ambulatory Limitations: no limitations History of Present Illness HPI Narrative: Patient is a 79-year-old male who presents to the emergency department with report of GI bleeding. Patient reports onset of symptoms 1 week ago. Patient states he has had black foul-smelling stool sometimes several episodes per day. Patient complains of mild dyspnea, generalized weakness, and dizziness. Patient denies any overt chest pain, but does state he notices pressure to the left side of his chest if he lays on his left side or applies pressure to his left side but denies noticing that discomfort any other time. Patient reports intermittent lower abdominal pain when he is changing out his peritoneal dialysis fluid. He reports the dialysis fluid has been clear. Patient does report some occasional nausea and vomiting. Patient is on warfarin and was hospitalized with elevated INR last month. MD complaint: melena Onset (ago): week(s) (1) Context: anticoagulant use Associated symptoms: abdominal pain, nausea, vomiting, easy bruising, shortness of breath and weakness Related Data Home Medications Medication Instructions Recorded Confirmed Epogen 10,000 units SUBCUT MONTHLY 05/05/19 05/05/19 isosorbide mononitrate 60 mg PO DAILY PRN 05/05/19 05/05/19 potassium chloride [K-Tab] 30 meq PO DAILY 05/05/19 05/05/19 warfarin [Coumadin] 2 mg PO DAILY@1700 05/05/19 05/05/19 Allergies Allergy/AdvReac Type Severity Reaction Status Date / Time albuterol Allergy Unknown Other Verified 06/09/19 16:34 cat dander Allergy Unknown Unknown Verified 06/09/19 16:34 cigarette smoke Allergy Unknown Unknown Verified 06/09/19 16:34 simvastatin Allergy Unknown ,irregular Verified 06/09/19 16:34 heartbeat Sulfa (Sulfonamide Allergy Unknown Unknown Verified 06/09/19 16:34 Antibiotics) CATS Allergy Unknown Unknown Uncoded 05/09/19 14:45 Review of Systems Review of Systems: All systems reviewed & are unremarkable except as noted in HPI and below Constitutional: Constitutional: Denies fever(s) Cardiovascular: Cardiovascular: Reports chest pain Respiratory: Respiratory: Denies cough and Reports dyspnea Gastrointestinal: Gastrointestinal: Reports abdominal pain, Reports melena, Reports diarrhea, Reports nausea and Reports vomiting PMF Past Medical History Medical History (Updated 06/09/19 @ 21:15 by Lauryn Montalvo MD) Anemia of chronic disease With history of blood transfusion. Patient also receives Epogen. Anxiety Benign prostatic hyperplasia Cerebrovascular accident Without significant deficits. Most recent stroke was in December 2018. Carotid Doppler ultrasounds demonstrated < 50% stenosis in bilateral internal carotid arteries. Echocardiogram did demonstrate probable LV thrombus at the apex for which she is now on warfarin. Chronic gastroesophageal reflux disease Chronic hyponatremia Combined congestive systolic and diastolic heart failure Echocardiogram in December 2018 showed significantly reduced left ventricular systolic function with ejection fraction of 20 to 25%, LV diastolic dysfunction grade 4, inferior wall akinesis, and multiple areas of hypokinesis, as well as probable LV thrombus at the apex. Coronary artery disease With history of NE, status post 4 vessel CABG. Diet-controlled diabetes mellitus End-stage renal disease on peritoneal dialysis Essential hypertension Hyperlipidemia Hypothyroidism Idiopathic chronic gout Ischemic cardiomyopathy Left ventricular systolic function with significantly reduced with an ejection fraction of 20 25% in December 2018. Status post AICD insertion. Multiple areas of hypokinesis noted as well as inferior wall akinesis. Left bundle branch block Left ventricular apical thrombus On echocardiogram
--- NOTE | 2019-06-09 14:42 | ECG_ITS ---
Measurements Intervals [place] Rate: 119 P: ND: 0 QRS: -43 QRSD: 160 T: 148 QT: 375 QTc: 529 Interpretive Statements ATRIAL FLUTTER/TACHYCARDIA WITH RAPID VENTRICULAR RESPONSE LEFT AXIS DEVIATION LEFT BUNDLE BRANCH BLOCK ABNORMAL ECG Electronically Signed On 06-09-2019 16:24:39 CDT by Julio C Hancock D.O.
[2019-06-09 14:56] LABS: Basophils Absolute Auto 0.1 K/mm3 (0.0-0.1); Eosinophils Absolute Auto 0.1 K/mm3 (0-0.3); Eosinophils Percent Auto 1.5 % (0-4.4); Hematocrit 27.5 % (42.0-52.0); Hemoglobin 8.8 g/dL (14.0-18.0); Immature Granulocyte Absolute 0.04 K/mm3 (0.00-0.031); Immature Granulocyte Percent A 0.7 % (0-0.5); Lymphocytes Absolute Auto 1.18 K/mm3 (0.9-3.2); Lymphocytes Percent Auto 19.4 % (18.3-44.2); Mean Corpuscular Hemoglobin 33.1 pg (26-34); Mean Corpuscular Volume 103.4 fl (80-100); Mean Platelet Volume 11.3 fl (7.4-10.4); Monocytes Absolute Auto 0.7 K/mm3 (0.1-0.6); Neutrophils Percent Auto 66.4 % (45.5-73.1); Platelet Count Result 180 k/mm3 (150-375); Red Blood Count 2.66 M/mm3 (4.6-6.20); White Blood Count 6.1 K/mm3 (4.5-10.0)
[2019-06-09 15:03] LABS: INR 4.6; Prothrombin Time 42.6 Seconds (11.1-14.7)
[2019-06-09 15:04] LABS: Alanine Aminotransferase 48 U/L (4-50); Albumin Level 3.2 g/dL (3.5-5.1); Alkaline Phosphatase 114 U/L (38-126); Aspartate Amino Transferase 55 U/L (17-59); Bilirubin,Total 0.5 mg/dL (0.2-1.3); Blood Urea Nitrogen 37 mg/dL (9-20); Calcium 8.7 mg/dL (8.4-10.2); Carbon Dioxide 27 mmol/L (22-30); Chloride 94 mmol/L (98-107); Estimated CRCL calculation 7 ml/min; Estimated Glomerular Filt Rate 7; Glucose 99 mg/dL (75-110); Partial Thromboplastin Time 74.5 SECONDS (22.3-36.8); Potassium 3.8 mmol/L (3.4-5.0); Sodium 131 mmol/L (137-145)
[2019-06-09] MEDS: SODIUM CHLORIDE 0.9% IV 250 ML 30 ML IV CONT (17:25)
--- NOTE | 2019-06-09 18:37 | PC.NURSE ---
This patient, Yordy Drake, was admitted to IMU Room 204-01. Patient/family oriented to hospital policies and general routines including ID bracelet, bed and alarms, visiting hours, pain management, procedures, bathroom and other care routines, personal items, smoking policy, room service/diet, and visiting hours. Valuables list has been completed. Information on how to activate the Rapid Response Team has been discussed. Patient/Family are encouraged to report perceived risks to care and to ask questions if they do not understand what they are told or what they should do.
--- NOTE | 2019-06-09 18:50 | PM.CNNEP ---
Assessment and Plan Assessment and plan (1) End stage renal disease: Code(s): N18.6 - End stage renal disease Status: Chronic (2) Acute on chronic anemia: Code(s): D64.9 - Anemia, unspecified Status: Acute (3) Supratherapeutic INR: Code(s): R79.1 - Abnormal coagulation profile Status: Acute (4) Ischemic cardiomyopathy: Code(s): I25.5 - Ischemic cardiomyopathy Status: Acute (5) Essential hypertension: Code(s): I10 - Essential (primary) hypertension Status: Acute Assessment and Plan: . Additional Plan Yordy has end stage renal disease. He will be started back on his nightly peritoneal dialysis regimen tonight. His history of dark tarry stools in conjunction with an elevated INR are somewhat concerning/ suggestive for GI blood loss which may explain his anemia as well. Fecal occult testing has been ordered and if positive, he may need GI consultation for further evaluation for the concern for GI blood loss. Given his elevated INR, his Coumadin has been discontinued and his INR will be allowed to correct on its own. He has been started on proton pump inhibitors given the concern for GI blood loss and is already being transfused with 1 unit of packed red blood cells. I will restart his Epogen in the hopes that this may also help maintain stability if not improve his hemoglobin and hematocrit as well. I will continue to follow his CKD parameters while he remains hospitalized and make further interventions with his dialysis treatment and medications as deemed necessary. I will continue to follow the patient with you while he remains hospitalized and make further recommendations during his hospital course. Thank you for allowing me to participate in care of this patient. History of Present Illness Reason for Consult Consult date: 06/09/19 Reason for consult: end stage renal disease Chief Complaint Chief complaint: Dark stools. History of Present Illness Narrative: The patient is a 79 year old male with a past medical history as outlined below who presented to the [facility] ER with a complaints of dark stools. The patient has noted dark stools for at least a week. He states that he has been passing black stools several times a day in the time frame as mentioned. With the dark stools, he has also noted progressive shortness of breath particulary with exertion as well as lightheadedness/dizziness (more so with upright positioning/standing). He also mentions nausea and emesis as well but mainly after drinking water. Other associated symptoms include dysphagia with pills. Workup and evaluation in the emergency room demonstrated the patient to be hemodynamically stable but in atrial fibrillation with RVR. Routine blood test demonstrated labs consistent with his known history of end-stage renal disease was also found to have a supratherapeutic INR as well. His H/H was somewhat lower than baseline as well. Given these constellation of symptoms as noted above and the concern for possible GI bleed, he was admitted the hospital for further evaluation and therapy. Renal consultation was requested due to his end-stage renal disease. The patient normally performs daily peritoneal dialysis every evening and has been doing reasonably well with his PD treatments in general. He normally he dialyzes via [facility] under the care of Dr. Ed Velazco. From a dialysis perspective, he has been doing reasonably well with stability in his volume status, electrolytes, and adequate clearance of the uremic toxins but has been having ongoing issues with hypotension. Apparently, because of this hypotension, he has been holidng his metoprolol which may explain his tachycardia/afib/aflutter in the ER today. Currently, at the time of my evaluation, he appears to be doing reasonably well and actually feels somewhat better (he is currently getting a PRBC transfusio
--- NOTE | 2019-06-09 19:00 | PM.IMHP ---
H&P: HPI History of Present Illness Chief complaint: Dark stools. Narrative: Yordy Drake is a 79-year-old male with multiple medical problems including end-stage renal disease on peritoneal dialysis, paroxysmal atrial fibrillation, ischemic cardiomyopathy, history of left ventricular thrombus on warfarin, coronary artery disease, chronic anemia, hypertension, and several other comorbidities who presented to the emergency department earlier this afternoon for evaluation of dark stools ongoing for the past 1 week. Reportedly, he has been passing black and foul smelling stools several times a day for nearly 1 week. Since that time, he reports progressive dyspnea on exertion and lightheadedness/dizziness upon standing. For the last 2 days, he has had nausea and reports emesis x3, mainly after drinking water. With further questioning, it sounds as though he has occasional dysphagia with pills. He denies concerns for aspiration. He has no significant GERD symptoms. He does not use NSAIDs. No hematemesis. He denies chest pain, but notes musculoskeletal pain when lying on his left side over the ribs. He denies any injury to the area. He has not had chest pain or palpitations, however he was noted to be in atrial fibrillation/flutter with rapid ventricular response on arrival to the emergency department. With further questioning, he admits to not taking his metoprolol for the last 3 days ?because it makes my blood pressure drop with dialysis.? Currently he has no complaints. Review of Systems Review of Systems: Narrative: Twelve systems were reviewed with pertinent positives and negatives as per HPI. No fever, chills, or sweats. No recent cold or flu symptoms. He tolerates peritoneal dialysis at home. Occasionally he has fleeting discomfort throughout his abdomen, which he attributes to the peritoneal dialysis catheter. This is unchanged and not a new finding. He does urinate a small amount. Denies dysuria and hematuria. He is not having chest pain, pleuritic pain, or palpitations. Denies orthopnea and PND. Except as documented, all other systems were reviewed and are negative. FOR[facility]LY [facility] Past Medical History Medical History Anemia of chronic disease With history of blood transfusion. Patient also receives Epogen. Anxiety Benign prostatic hyperplasia Cerebrovascular accident Without significant deficits. Most recent stroke was in December 2018. Carotid Doppler ultrasounds demonstrated < 50% stenosis in bilateral internal carotid arteries. Echocardiogram did demonstrate probable LV thrombus at the apex for which she is now on warfarin. Chronic gastroesophageal reflux disease Chronic hyponatremia Combined congestive systolic and diastolic heart failure Echocardiogram in December 2018 showed significantly reduced left ventricular systolic function with ejection fraction of 20 to 25%, LV diastolic dysfunction grade 4, inferior wall akinesis, and multiple areas of hypokinesis, as well as probable LV thrombus at the apex. Coronary artery disease With history of VA, status post 4 vessel CABG. Diet-controlled diabetes mellitus End-stage renal disease on peritoneal dialysis Essential hypertension Hyperlipidemia Hypothyroidism Idiopathic chronic gout Ischemic cardiomyopathy Left ventricular systolic function with significantly reduced with an ejection fraction of 20 25% in December 2018. Status post AICD insertion. Multiple areas of hypokinesis noted as well as inferior wall akinesis. Left bundle branch block Left ventricular apical thrombus On echocardiogram 01/12/2019. Currently on warfarin. Major depression, chronic Osteoarthritis Paroxysmal atrial fibrillation Rectal fistula Repair x3. Restless leg syndrome Severe pulmonary arterial systolic hypertension On echocardiogram in December 2018, with a pulmonary artery systolic pressure of 63 mmHg. Small B-cell lymphoma Valvular heart di
[2019-06-09] MEDS: PANTOPRAZOLE SODIUM IV 40 MG VIAL IV PUSH (21:08)
[2019-06-09] MEDS: CENTRAL LINE FLUSH 10 ML IV PUSH (21:08)
[2019-06-09 21:46] LABS: Hematocrit 29.8 % (42.0-52.0); Hemoglobin 9.6 g/dL (14.0-18.0)
[2019-06-09] MEDS: METOPROLOL TARTRATE 25 MG TABLET PO (23:45)
[2019-06-09] MEDS: CLONAZEPAM 0.5 MG TAB PO (23:45)
[2019-06-09] MEDS: SACCHAROMYCES BOULARDII 250 MG CAPSULE PO (23:46)
[2019-06-10] VITALS (21 sets, daily range): BP systolic 85–104; BP diastolic 58–73; PULSE 99–120; RESP 14–18; TEMP 36.2–36.7; O2SAT 97–100; BMI 27.1
--- NOTE | 2019-06-10 03:42 | ECG_ITS ---
Measurements Intervals [place] Rate: 117 P: [place]: 0 QRS: -43 QRSD: 163 T: 169 QT: 395 QTc: 553 Interpretive Statements ATRIAL FLUTTER/TACHYCARDIA WITH RAPID VENTRICULAR RESPONSE LEFT AXIS DEVIATION LEFT BUNDLE BRANCH BLOCK ABNORMAL ECG Electronically Signed On 06-10-2019 15:08:48 CDT by Julio C Hancock D.O.
[2019-06-10] MEDS: LEVOTHYROXINE SODIUM 75 MCG TABLET PO (06:01)
[2019-06-10] MEDS: CENTRAL LINE FLUSH 10 ML IV PUSH ×3 (06:01→21:02)
[2019-06-10 06:23] LABS: Hematocrit 29.4 % (42.0-52.0); Hemoglobin 9.6 g/dL (14.0-18.0); Mean Corpuscular HGB Conc 32.7 g/dl (32-36); Mean Platelet Volume 11.2 fl (7.4-10.4); Platelet Count Result 166 k/mm3 (150-375); Red Blood Count 2.91 M/mm3 (4.6-6.20); Red Cell Distribution Width 16.4 % (11.5-14.5); White Blood Count 6.2 K/mm3 (4.5-10.0)
[2019-06-10 06:37] LABS: Blood Urea Nitrogen 36 mg/dL (9-20); Calcium 8.6 mg/dL (8.4-10.2); Carbon Dioxide 28 mmol/L (22-30); Chloride 94 mmol/L (98-107); Estimated CRCL calculation 7 ml/min; Estimated Glomerular Filt Rate 7; Glucose 116 mg/dL (75-110); Potassium 3.9 mmol/L (3.4-5.0); Sodium 131 mmol/L (137-145)
[2019-06-10 06:39] LABS: Prothrombin Time 56.9 Seconds (11.1-14.7)
[2019-06-10 06:43] LABS: INR 6.6
[2019-06-10 07:07] LABS: Hepatitis B Surface Antigen Negative (Negative)
[2019-06-10] MEDS: METOPROLOL TARTRATE 25 MG TABLET PO (09:11)
[2019-06-10] MEDS: PHYTONADIONE INJ 10 MG/ML AMP SUB-Q (09:11)
[2019-06-10] MEDS: MAGNESIUM OXIDE 400 MG TABLET PO (09:11)
[2019-06-10] MEDS: VITAMIN B CMPLX/VIT C/FOLIC AC 1 CAPSULE 1 CAP PO (09:11)
[2019-06-10] MEDS: SACCHAROMYCES BOULARDII 250 MG CAPSULE PO ×2 (09:11→21:01)
[2019-06-10] MEDS: SERTRALINE HCL 50 MG TABLET PO (09:11)
[2019-06-10] MEDS: PANTOPRAZOLE SODIUM IV 40 MG VIAL IV PUSH ×2 (09:11→21:01)
--- NOTE | 2019-06-10 09:22 | PM.IMPN ---
Progress Note: A&P Assessment and Plan (1) GI bleed: Qualifiers: GI bleed type/associated pathology: unspecified gastrointestinal hemorrhage type Qualified Code(s): K92.2 - Gastrointestinal hemorrhage, unspecified Code(s): K92.2 - Gastrointestinal hemorrhage, unspecified Status: Acute Assessment and Plan: Concerning for GI loss given reports of dark stools as well as having elevated INR levels which can cause bleeding. GI was consulted secondary to the patient's black tarry stools. IV Protonix [address] Trejo evaluated him for an EGD in the morning. Pending IFOB results. Continue monitoring H&H. (2) Acute on chronic anemia: Code(s): D64.9 - Anemia, unspecified Status: Acute Assessment and Plan: The patient's baseline H&H seems to fluctuate a lot due to his end-stage renal disease. His last hemoglobin was 10.6. On arrival his hemoglobin was 8.8 and hematocrit was 27.5%. Will also order anemia labs with iron panel, vitamin B12, folic acid. Continue monitoring H&H and transfuse as needed. (3) Supratherapeutic INR: Code(s): R79.1 - Abnormal coagulation profile Status: Acute Assessment and Plan: He has been on warfarin since December 2018, and he has not checked his INR the last 3 weeks the patient states. He is supposed to be getting an INR machine at his house so he can check it more frequently if necessary. Has been supratherapeutic several times since then. The patient's INR on arrival was this morning it was 6.6. I ordered vitamin K as well as FFP to be given in case the patient needed undergo a GI procedure due to his GI bleeding. Will recheck his INR at 1:00 p.m. Continue monitoring. (4) Paroxysmal atrial fibrillation: Code(s): I48.0 - Paroxysmal atrial fibrillation Status: Acute Assessment and Plan: EKG on arrival showed atrial flutter with RVR with a heart rate of 119, with a left bundle branch block. Since he has been off his metoprolol for multiple days will restart his metoprolol and monitor his heart rate closely. Telemetry this morning showed atrial flutter with RVR and a heart rate of 119 still. He did have a few runs of ventricular tachycardia overnight but he was asymptomatic. Due to his uncontrolled Atrial flutter with RVR, concerns for hypotension with medications, Vtach episodes on Tele I am going to consult Cardiology on the case for further evaluation. Will continue monitoring on Telemetry and make adjustments to his medications if necessary. (5) Left ventricular apical thrombus: Code(s): I51.3 - Intracardiac thrombosis, not elsewhere classified Status: Acute Assessment and Plan: Noted on echocardiogram in December 2018, at which time he was started on warfarin. See supratherapeutic INR (6) End-stage renal disease on peritoneal dialysis: Code(s): N18.6 - End stage renal disease; Z99.2 - Dependence on renal dialysis Status: Acute Assessment and Plan: Dr. Pat consulted for peritoneal dialysis. He will start Epogen Continue nightly peritoneal dialysis. 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 (7) Essential hypertension: Code(s): I10 - Essential (primary) hypertension Status: Acute Assessment and Plan: Blood pressure this morning was 100/62. Stable. Continue antihypertensives and monitor daily. (8) Hypothyroidism: Qualifiers: Hypothyroidism type: acquired Qualified Code(s): E03.9 - Hypothyroidism, unspecified Code(s): E03.9 - Hypothyroidism, unspecified Status
--- NOTE | 2019-06-10 09:47 | WPDGICN ---
Assessment and Plan Assessment and plan (1) GI bleed: Qualifiers: GI bleed type/associated pathology: unspecified gastrointestinal hemorrhage type Qualified Code(s): K92.2 - Gastrointestinal hemorrhage, unspecified Code(s): K92.2 - Gastrointestinal hemorrhage, unspecified Status: Acute Assessment and Plan: Patient appears to have a component of GI bleeding manifested by black melenic stools for 5 days. This apparently was confirmed to be Hemoccult-positive in dialysis unit. Now with significant anemia. Undoubtedly aggravated by supratherapeutic INR and warfarin anticoagulation. Plan is for EGD in the morning. Colonoscopy should be considered after INR has lessened to some degree. (2) Acute on chronic anemia: Code(s): D64.9 - Anemia, unspecified Status: Acute (3) Supratherapeutic INR: Code(s): R79.1 - Abnormal coagulation profile Status: Acute Assessment and Plan: INR is quite prolonged period undoubtedly contributing to recent GI bleeding. Plan is to hold Coumadin until INR is more therapeutic. We will proceed with EGD in the morning, consider colonoscopy Thursday if INR is lower. (4) End-stage renal disease on peritoneal dialysis: Code(s): N18.6 - End stage renal disease; Z99.2 - Dependence on renal dialysis Status: Acute (5) Left ventricular apical thrombus: Code(s): I51.3 - Intracardiac thrombosis, not elsewhere classified Status: Acute (6) Paroxysmal atrial fibrillation: Code(s): I48.0 - Paroxysmal atrial fibrillation Status: Acute (7) Essential hypertension: Code(s): I10 - Essential (primary) hypertension Status: Acute (8) Dysphagia: Code(s): R13.10 - Dysphagia, unspecified Status: Acute Assessment and Plan: Patient has current dysphagia to large pills. Has a history of esophageal stricture ring requiring dilatation at least 3 times in the past. Likely related to acid reflux. No longer on medications. This will be assessed at time of EGD. GI Consult Note Consult date/time: 06/10/19 09:47 HPI: Yordy Drake is a 79 year old male seen in evaluation at the request of the hospitalist service. Patient presented to the emergency room yesterday because of melena for 1 week. Past history is significant for end-stage renal disease on peritoneal dialysis, atrial fibrillation, history of left ventricular thrombus, on chronic warfarin anticoagulation. He states for the last 5-7 days has had black stools. He states that diet dialysis unit obtained a stool sample and was found to be Hemoccult positive. Patient denies any abdominal pain. He denies prior significant GI blood loss. He has had some weakness over the last several weeks. Past medical history is significant for GE reflux. He has a history of esophageal stricture requiring dilatation in the past. Previously took proton pump inhibitor see no longer takes any medications as he has no heartburn. He has noted large pills sticking in his throat recently. He denies any weight loss. Review of Systems Review of Systems: All systems reviewed & are unremarkable except as noted in HPI and below PMFSH Past Medical History Medical History Anemia of chronic disease With history of blood transfusion. Patient also receives Epogen. Anxiety Benign prostatic hyperplasia Cerebrovascular accident Without significant deficits. Most recent stroke was in December 2018. Carotid Doppler ultrasounds demonstrated < 50% stenosis in bilateral internal carotid arteries. Echocardiogram did demonstrate probable LV thrombus at the apex for which she is now on warfarin. Chronic gastroesophageal reflux disease Chronic hyponatremia Combined congestive systolic and diastolic heart failure Echocardiogram in December 2018 showed significantly reduced left ventricular systolic function with ejection fraction of 20
--- NOTE | 2019-06-10 10:43 | PM.PNNEP ---
Progress Note: A&P Assessment and Plan (1) End stage renal disease: Code(s): N18.6 - End stage renal disease Status: Chronic Assessment and Plan: continue CCPD treatments nightly (tolerated procedure overnight) follow electrolytes, volume status, and clearance relative hypotension sometimes limits fluid removal/ultrafiltration (2) Acute on chronic anemia: Code(s): D64.9 - Anemia, unspecified Status: Acute Assessment and Plan: due ESRD + acute blood loss acute blood loss due to GI bleed (guaiac +) worsened/complicated by #3 Gastroenterology following -- plan EGD PRBC transfusion PRN start Epogen (3) Supratherapeutic INR: Code(s): R79.1 - Abnormal coagulation profile Status: Acute Assessment and Plan: has had this issue in the past coumadin on hold follow INR (4) Ischemic cardiomyopathy: Code(s): I25.5 - Ischemic cardiomyopathy Status: Acute Assessment and Plan: appears compensated at this time continue ultrafiltration with CCPD to maintain euvolemia (5) Essential hypertension: Code(s): I10 - Essential (primary) hypertension Status: Acute Assessment and Plan: not really an issue if anything, has relative hypotension follow hemodynamics Will continue to follow. Subjective Date/time seen: 06/10/19 10:43 Tolerated CCPD treatment overnight without any issues (had fluid removal/UF of ~ 1L with treatment); noted plans for EGD tomorrow; no other acute complaints voiced. Exam Narrative: Exam Narrative: General: elderly male in NAD Heart: normal S1 and S2; no rub Lungs: clear to auscultation Abdomen: soft, nontender, nondistended, positive bowel sounds Extremities: no cyanosis or clubbing; no edema Skin: warm and dry Objective Data Vital Signs Vital Signs: Vital Signs Temp Pulse Resp BP Pulse Ox 06/10/19 10:00 119 H 06/10/19 09:11 119 H 06/10/19 08:00 36.2 C L 119 H 14 100/62 100 06/10/19 06:00 118 H 06/10/19 04:00 36.3 C L 118 H 18 97/59 L 100 06/10/19 01:47 116 H 06/10/19 00:00 36.6 C 120 H 18 104/73 100 06/09/19 23:45 118 H 06/09/19 22:00 119 H 04/16/20 20:30 36.4 C 118 H 18 104/75 06/09/19 20:00 118 H 18 99 06/09/19 19:37 36.4 C 118 H 18 104/75 99 06/09/19 18:37 36.4 C L 118 H 16 111/72 100 06/09/19 18:22 118 H 16 104/78 97 06/09/19 17:37 36.7 C 120 H 18 104/78 100 06/09/19 17:25 120 H 15 107/76 100 06/09/19 17:20 36.3 C L 119 H 25 H 107/76 100 06/09/19 16:06 36.6 C 119 H 14 110/62 100 06/09/19 14:55 121 H 103/74 06/09/19 14:54 116 H 108/76 06/09/19 14:49 116 H 108/76 06/09/19 14:10 36.6 C 120 H 16 107/73 100 Intake/Output Intake/Output: Intake & Output 06/07/19 06/08/19 06/09/19 06/10/19 23:59 23:59 23:59 23:59 Intake Total 380 300 Output Total 1068 Balance 380 -768 Meds/Results Medications: Active Medications Generic Name Dose Route Start Last Admin Trade Name Freq PRN Reason Stop Dose Admin Acetaminophen 650 mg 06/09/19 22:39 Tylenol Tablet PO Q4H PRN Headache Clonazepam 0.5 mg 06/10/19 21:00 Klonopin Tablet PO HS XUAN Epoetin Rubén 10,000 units 06/13/19 09:00 Epogen SUB-Q Q14D XUAN Guaifenesin 600 mg 06/09/19 23:10 06/10/19 09:11 Mucinex 12 Hr Tab PO 600 mg Q12HR XUAN Administration Heparin Sodium (Beef Lung) 50 units 06/10/19 09:00 06/10/19 10:38 Heparin Flush 50 Units/5 Ml IV PUSH Not Given QAM XUAN Heparin Sodium (Beef Lung) 50 units 06/09/19 18:49 Heparin Flush 50 Units/5 Ml IV PUSH PRN PRN after intermittent infusion Heparin Sodium (Beef Lung) 50 units 06/09/19 18:49 Heparin Flush 50 Units/5 Ml IV PUSH PRN PRN after blood draws Heparin Sodium (Porcine) 500 units 06/09/19 18:49 Heparin Sod Flush 100 Unit
[2019-06-10] MEDS: TUBING, BLOOD PLUM PUMP TUBING 1 EACH XX (11:39)
[2019-06-10] MEDS: PRAVASTATIN SODIUM 20 MG TABLET 80 MG PO (11:43)
[2019-06-10] MEDS: ACETAMINOPHEN 325 MG TABLET 650 MG PO (11:43)
[2019-06-10 12:06] LABS: Hematocrit 30.4 % (42.0-52.0)
[2019-06-10 12:16] LABS: INR 4.6; Prothrombin Time 42.5 Seconds (11.1-14.7)
--- NOTE | 2019-06-10 12:42 | PM.CNCAR ---
Assessment and Plan Additional Plan 79-year-old white male with well worked up in delineated severe ischemic cardiomyopathy with remote history of bypass grafting as well as percutaneous interventional revascularization about 6 years ago. He has a low ejection fraction as well as significant valvular heart disease most important of which is aortic valve stenosis with recent valve area of about 1.0 cm2. The patient according to the records has paroxysmal atrial flutter. Dr. Cm's office notes indicate that he at times is in sinus rhythm and at times is in flutter based on his device interrogation. I have not reviewed those notes but it should be noted that he only has a single chamber ventricular lead. His heart rate is certainly not unduly rapid particularly since he has a low ejection fraction and he is significantly anemic at this time. For now I would recommend continuing his metoprolol to control his heart rate and his Coumadin of course needs to be discontinued since he is actively bleeding. The most significant decision regarding his cardiovascular status in my opinion is that he should or should not be continued on systemic anticoagulation since this is the 2nd hospital admission within 1 month where his INR has become problematically high. The patient at the time seems to be hemodynamically not unstable and his metoprolol should be continued at his stable chronic dosage of 25 mg q.12 hours. Some nonsustained ventricular tachycardia was also seen on his telemetry. All again reviewing his chart this is nothing new and of course not also to be unexpected given his very low ejection fraction and ischemic cardiomyopathy. Will follow with you during this hospitalization but for now the only significant recommendation is to stop anticoagulation Clay Groves MD [facility] History of Present Illness History of Present Illness Consult date/time: Date of service: 06/10/19 12:42 Reason For Visit: Dark stools Narrative: This is a 79-year-old man I am seeing at the request of the hospitalist apparently to provide assistance with his management as it pertains to cardiac arrhythmias and anticoagulation. Patient is a long story to history of coronary artery disease, valvular heart disease, atrial fibrillation/atrial flutter and is normally followed by Dr. Cm of our practice. He was admitted to the hospital yesterday primarily because of apparent GI bleeding as manifested by a black melanotic stools for 5 or 6 days and a drop in his hemoglobin. He is not having any specific cardiac symptoms he denies any chest pain pressure or heaviness he denies any significant worsening of baseline shortness of breath or accumulating edema. He has no sense of palpitations nor has he ever had a syncopal episode. The patient upon arrival to the hospital was evaluated in the ED and found to be anemic with a hemoglobin in the vicinity of 8 g and an elevated INR of 6.1. His history of coronary artery disease idea I believe dates back to 2000 at which time he was found to have multivessel coronary disease and was referred for bypass grafting. I do not have the details of his operation at the time of this dictation I believe his surgery was done up in [facility]. He also had a couple of coronary stent interventions done in 2013 I believe in the [place] area. Around that time he also had implantation of a single-chamber [employer] ICD. Along the way he apparently relocated to this area and has been followed and recent years by our practice with Dr. Cm . He also has end-stage renal disease and is a chronic peritoneal dialysis patient and has a diagnosis of some sort of lymphoma in the record he states that was located in his chest and I do not believe that is being treated by anyone recently. I do not have any further specific records regarding that diagnosis. In the hospital now the patient is in a sustained pattern of atrial flutter his heart rate is in the 110
[2019-06-10 12:45] LABS: IFOB Positive Control Positive; Immunochemical Fecal Occult Bl Positive (N)
--- NOTE | 2019-06-10 16:34 | WPDANESEPP ---
Anes - Eval Pre Procedure Procedure: Operation Date: 06/11/19 08:00 Proposed Procedures p Esophagogastroduodenoscopy - Luis Alfredo Trejo MD Operation Date: 06/13/19 10:00 Proposed Procedures p Colonoscopy - Luis Alfredo Trejo MD Date/Time: 06/10/19 16:34 Pre Op Diagnosis: GI bleed, anemia, coagulopathy due to warfarin Patient Data Age: 79 Gender: M Height: 1.73 m Weight: 81 kg Last Vital Signs Temp 36.5 C 06/10/19 12:00 Pulse 115 H 06/10/19 14:00 Resp 18 06/10/19 12:00 BP 87/61 L 06/10/19 13:48 Pulse Ox 98 06/10/19 12:00 Allergies Allergy/AdvReac Type Severity Reaction Status Date / Time albuterol Allergy Unknown Other Verified 06/09/19 16:34 cat dander Allergy Unknown Unknown Verified 06/09/19 16:34 cigarette smoke Allergy Unknown Unknown Verified 06/09/19 16:34 simvastatin Allergy Unknown ,irregular Verified 06/09/19 16:34 heartbeat Sulfa (Sulfonamide Allergy Unknown Unknown Verified 06/09/19 16:34 Antibiotics) CATS Allergy Unknown Unknown Uncoded 05/09/19 14:45 Home Medications Medication Instructions Recorded Confirmed Type acetaminophen [Mapap 650 mg PO Q4H PRN #30 tablet 01/02/19 06/09/19 Rx (acetaminophen)] Triphrocaps 1 cap PO DAILY #30 cap 01/22/19 06/09/19 Rx loperamide 2 mg PO PRN PRN #60 cap 01/22/19 06/09/19 Rx metoprolol tartrate 25 mg PO BID #30 tablet 01/22/19 06/09/19 Rx pravastatin 80 mg PO DAILY #30 tablet 01/22/19 06/09/19 Rx sertraline 50 mg PO DAILY #30 tablet 01/22/19 06/09/19 Rx levothyroxine 75 mcg tablet 75 mcg PO DAILY #30 tablet 03/10/19 06/09/19 Rx clonazepam 0.5 mg tablet 0.5 mg PO HS #30 tablet 04/29/19 06/09/19 Rx Epogen 10,000 units SUBCUT MONTHLY 05/05/19 06/09/19 History isosorbide mononitrate 60 mg PO DAILY PRN 05/05/19 06/09/19 History potassium chloride [K-Tab] 30 meq PO DAILY 05/05/19 06/09/19 History warfarin [Coumadin] 2 mg PO DAILY@1700 05/05/19 06/09/19 History Saccharomyces boulardii [Florastor] 250 mg PO BID #14 cap 05/08/19 06/09/19 Rx guaifenesin [Mucinex] 600 mg PO BID #14 tablet 05/08/19 06/09/19 Rx magnesium oxide 400 mg (241.3 mg 400 mg PO QAM #30 tablet 06/01/19 06/09/19 Rx magnesium) tablet tramadol 50 mg tablet 50 mg PO Q6H PRN #28 tablet 06/01/19 06/09/19 Rx Laboratory Tests 06/09/19 06/09/19 06/10/19 14:27 21:37 05:54 WBC 6.2 K/mm3 K/mm3 (4.5-10.0) RBC 2.91 M/mm3 L M/mm3 (4.6-6.20) Hgb 9.6 g/dL L g/dL 9.6 g/dL L g/dL (14.0-18.0) (14.0-18.0) Hct 29.8 % L % 29.4 % L % (42.0-52.0) (42.0-52.0) MCV 101.0 fl H fl (80-100) MCH 33.0 pg pg (26-34) MCHC 32.7 g/dl g/dl (32-36) RDW 16.4 % H % (11.5-14.5) Plt Count 166 k/mm3 k/mm3 (150-375) MPV 11.2 fl H fl (7.4-10.4) PT INR Sodium Potassium Chloride Carbon Dioxide BUN Creatinine Estim Creat Clear Calc Estimated GFR Glucose Calcium Iron TIBC % Saturation Transferrin Ferritin Vitamin B12 Folate Stl Occult Blood (IFOB) Hep Bs Antigen Blood Type A Positive Antibody Screen Negative Crossmatch See Detail 06/10/19 06/10/19 06/10/19 05:54 05:54 05:55 WBC RBC Hgb Hct MCV MCH MCHC RDW Plt Count MPV PT 56.9 Seconds H D Seconds (11.1-14.7) INR 6.6 H* Sodium 131 mmol/L L mmol/L (137-145) Potassium 3.9 mmol/L mmol/L (3.4-5.0) Chloride 94 mmol/L L mmol/L (98-107) Carbon Dioxide 28 mmol/L mmol/L (22-30) BUN 36 mg/dL H mg/dL (9-20) Creatinine 7.70 mg/dL H mg/dL
[2019-06-10 17:47] LABS: Transferrin 192 mg/dL (206-381)
[2019-06-10 17:55] LABS: Iron 143 ug/dL (49-181)
[2019-06-10 18:07] LABS: Percent Iron Saturation 51 % (20-50)
[2019-06-10 18:45] LABS: Folic Acid > 20.0 ng/mL (2.76->20); Vitamin B12 > 1000.0 pg/mL (239-931)
[2019-06-10 20:08] LABS: Ferritin > 2000.00 ng/mL (11.1-264)
[2019-06-10] MEDS: CLONAZEPAM 0.5 MG TAB PO (21:01)
[2019-06-11] VITALS (21 sets, daily range): BP systolic 92–102; BP diastolic 59–72; PULSE 115–118; RESP 14–20; TEMP 36.2–36.8; O2SAT 96–100
[2019-06-11] MEDS: CENTRAL LINE FLUSH 10 ML IV PUSH ×3 (05:10→21:14)
[2019-06-11] MEDS: LEVOTHYROXINE SODIUM 75 MCG TABLET PO (05:18)
[2019-06-11 05:27] LABS: Hematocrit 30.6 % (42.0-52.0); Hemoglobin 9.9 g/dL (14.0-18.0); Mean Corpuscular HGB Conc 32.4 g/dl (32-36); Mean Platelet Volume 10.9 fl (7.4-10.4); Platelet Count Result 171 k/mm3 (150-375); Red Cell Distribution Width 16.4 % (11.5-14.5)
[2019-06-11 05:42] LABS: Albumin Level 2.9 g/dL (3.5-5.1); Blood Urea Nitrogen 37 mg/dL (9-20); Calcium 8.5 mg/dL (8.4-10.2); Carbon Dioxide 28 mmol/L (22-30); Chloride 94 mmol/L (98-107); Estimated CRCL calculation 7 ml/min; Estimated Glomerular Filt Rate 6; Glucose 126 mg/dL (75-110); Potassium 3.6 mmol/L (3.4-5.0); Sodium 131 mmol/L (137-145)
[2019-06-11 05:43] LABS: INR 2.3; Prothrombin Time 24.7 Seconds (11.1-14.7)
[2019-06-11] MEDS: SODIUM CHLORIDE 0.9% IV 500 ML 10 ML IV CONT (06:57)
--- NOTE | 2019-06-11 07:11 | WPDANESEPPF ---
Anes - Initial Pre Proc Eval Procedure: Operation Date: 06/11/19 08:00 Proposed Procedures p Esophagogastroduodenoscopy - Luis Alfredo Trejo MD Operation Date: 06/13/19 10:00 Proposed Procedures p Colonoscopy - Luis Alfredo Trejo MD Date/Time: 06/11/19 07:11 Surgeon: Lauren eSgundo PA-C Pre Op Diagnosis: GI bleed, anemia, coagulopathy due to warfarin Patient Data Age: 79 Gender: M Height: 5 ft 8 in Weight: 80 kg Last Vital Signs Temp 36.8 C 06/11/19 06:48 Pulse 118 H 06/11/19 06:48 Resp 18 06/11/19 06:48 BP 99/68 L 06/11/19 06:48 Pulse Ox 100 06/11/19 06:48 Allergies Allergy/AdvReac Type Severity Reaction Status Date / Time albuterol Allergy Unknown Other Verified 06/09/19 16:34 cat dander Allergy Unknown Unknown Verified 06/09/19 16:34 cigarette smoke Allergy Unknown Unknown Verified 06/09/19 16:34 simvastatin Allergy Unknown ,irregular Verified 06/09/19 16:34 heartbeat Sulfa (Sulfonamide Allergy Unknown Unknown Verified 06/09/19 16:34 Antibiotics) CATS Allergy Unknown Unknown Uncoded 05/09/19 14:45 Home Medications Medication Instructions Recorded Confirmed Type acetaminophen [Mapap 650 mg PO Q4H PRN #30 tablet 01/02/19 06/09/19 Rx (acetaminophen)] Triphrocaps 1 cap PO DAILY #30 cap 01/22/19 06/09/19 Rx loperamide 2 mg PO PRN PRN #60 cap 01/22/19 06/09/19 Rx metoprolol tartrate 25 mg PO BID #30 tablet 01/22/19 06/09/19 Rx pravastatin 80 mg PO DAILY #30 tablet 01/22/19 06/09/19 Rx sertraline 50 mg PO DAILY #30 tablet 01/22/19 06/09/19 Rx levothyroxine 75 mcg tablet 75 mcg PO DAILY #30 tablet 03/10/19 06/09/19 Rx clonazepam 0.5 mg tablet 0.5 mg PO HS #30 tablet 04/29/19 06/09/19 Rx Epogen 10,000 units SUBCUT MONTHLY 05/05/19 06/09/19 History isosorbide mononitrate 60 mg PO DAILY PRN 05/05/19 06/09/19 History potassium chloride [K-Tab] 30 meq PO DAILY 05/05/19 06/09/19 History warfarin [Coumadin] 2 mg PO DAILY@1700 05/05/19 06/09/19 History Saccharomyces boulardii [Florastor] 250 mg PO BID #14 cap 05/08/19 06/09/19 Rx guaifenesin [Mucinex] 600 mg PO BID #14 tablet 05/08/19 06/09/19 Rx magnesium oxide 400 mg (241.3 mg 400 mg PO QAM #30 tablet 06/01/19 06/09/19 Rx magnesium) tablet tramadol 50 mg tablet 50 mg PO Q6H PRN #28 tablet 06/01/19 06/09/19 Rx Laboratory Tests 06/09/19 06/10/19 06/10/19 14:27 11:52 11:52 WBC RBC Hgb Hct MCV MCH MCHC RDW Plt Count MPV PT 42.5 Seconds H D Seconds (11.1-14.7) INR 4.6 Sodium Potassium Chloride Carbon Dioxide BUN Creatinine Estim Creat Clear Calc Estimated GFR Glucose Calcium Phosphorus Iron Cancelled TIBC Cancelled % Saturation Cancelled Transferrin Ferritin Cancelled Albumin Vitamin B12 Folate Stl Occult Blood (IFOB) Blood Type A Positive Antibody Screen Negative Crossmatch See Detail 06/10/19 06/10/19 06/10/19 11:52 11:52 11:52 WBC RBC Hgb 10.0 g/dL L g/dL (14.0-18.0) Hct 30.4 % L % (42.0-52.0) MCV MCH MCHC RDW Plt Count MPV PT INR Sodium Potassium Chloride Carbon Dioxide BUN Creatinine Estim Creat Clear Calc Estimated GFR Glucose Calcium Phosphorus Iron 143 ug/dL ug/dL (49-181) TIBC 281 ug/dL ug/dL (265-497) % Saturation 51 % H % (20-50) Transferrin 192 mg/dL L mg/dL
[2019-06-11] MEDS: BENZOCAINE (*SP) 60 ML SPRAY CAN (HURRICAINE) 1 SPRAY MUCOUS MEM (07:40)
[2019-06-11] MEDS: PANTOPRAZOLE SODIUM IV 40 MG VIAL IV PUSH ×2 (09:51→21:14)
[2019-06-11] MEDS: SACCHAROMYCES BOULARDII 250 MG CAPSULE PO ×2 (09:51→21:14)
[2019-06-11] MEDS: MAGNESIUM OXIDE 400 MG TABLET PO (09:51)
[2019-06-11] MEDS: PRAVASTATIN SODIUM 20 MG TABLET 80 MG PO (09:51)
[2019-06-11] MEDS: SERTRALINE HCL 50 MG TABLET PO (09:51)
[2019-06-11] MEDS: VITAMIN B CMPLX/VIT C/FOLIC AC 1 CAPSULE 1 CAP PO (09:51)
--- NOTE | 2019-06-11 10:58 | PM.PNNEP ---
Progress Note: A&P Assessment and Plan (1) End stage renal disease: Code(s): N18.6 - End stage renal disease Status: Chronic Assessment and Plan: continue CCPD treatments nightly follow electrolytes, volume status, and clearance relative hypotension sometimes limits fluid removal/ultrafiltration (2) Acute on chronic anemia: Code(s): D64.9 - Anemia, unspecified Status: Acute Assessment and Plan: due ESRD + acute blood loss acute blood loss due to GI bleed (guaiac +) worsened/complicated by #2 Gastroenterology following -- EGD this AM with results noted PRBC transfusion PRN Epogen 3x/week while hospitalized (3) Supratherapeutic INR: Code(s): R79.1 - Abnormal coagulation profile Status: Acute Assessment and Plan: has had this issue in the past coumadin on hold follow INR (4) Ischemic cardiomyopathy: Code(s): I25.5 - Ischemic cardiomyopathy Status: Acute Assessment and Plan: appears compensated at this time continue ultrafiltration with CCPD to maintain euvolemia (5) Essential hypertension: Code(s): I10 - Essential (primary) hypertension Status: Acute Assessment and Plan: not really an issue if anything, has relative hypotension follow hemodynamics Will continue to follow. Subjective Date/time seen: 06/11/19 10:58 S/P EGD this AM with no significant findings noted; tolerated CCPD overnight without any issues or problems; feels reasonably well otherwise; main complaint is that of weakness/fatigue. Exam Narrative: Exam Narrative: General: elderly male in NAD Heart: normal S1 and S2; no rub Lungs: clear to auscultation Abdomen: soft, nontender, nondistended, positive bowel sounds Extremities: no cyanosis or clubbing; no edema Skin: warm and intact Objective Data Vital Signs Vital Signs: Vital Signs Temp Pulse Resp BP Pulse Ox 06/11/19 09:24 36.6 C 115 H 16 74/42 L 99 06/11/19 09:00 115 H 06/11/19 08:37 36.8 C 115 H 14 96/68 L 06/11/19 08:19 115 H 14 96/68 L 100 06/11/19 08:09 115 H 19 92/65 L 97 06/11/19 07:59 115 H 18 95/66 L 100 06/11/19 06:48 36.8 C 118 H 18 99/68 L 100 06/11/19 06:00 117 H 06/11/19 04:00 36.5 C 118 H 20 96/67 L 100 06/11/19 02:00 118 H 06/11/19 00:00 36.6 C 118 H 20 102/72 98 06/10/19 22:00 117 H 06/10/19 20:00 115 H 18 100 06/10/19 19:48 36.7 C 99 18 94/70 L 100 06/10/19 19:30 36.7 C 99 18 94/70 L 06/10/19 18:00 115 H 06/10/19 16:00 36.7 C 116 H 18 87/58 L 97 06/10/19 14:00 115 H 06/10/19 13:48 87/61 L 06/10/19 12:00 36.5 C 117 H 18 85/59 L 98 06/10/19 11:37 36.7 C 117 H 16 89/69 L 100 06/10/19 11:36 36.7 C 117 H 16 89/69 L 100 06/10/19 11:01 36.7 C 118 H 16 86/58 L 100 Intake/Output Intake/Output: Intake & Output 06/08/19 06/09/19 06/10/19 06/11/19 23:59 23:59 23:59 23:59 Intake Total 380 500 250 Output Total 1068 715 Balance 546 -982 -761 Meds/Results Medications: Active Medications Generic Name Dose Route Start Last Admin Trade Name Freq PRN Reason Stop Dose Admin Acetaminophen 650 mg 06/09/19 22:39 06/10/19 11:43 Tylenol Tablet PO 650 mg Q4H PRN Administration Headache Clonazepam 0.5 mg 06/10/19 21:00 06/10/19 21:01 Klonopin Tablet PO 0.5 mg HS XUAN Administration Epoetin Rubén 10,000 units 06/13/19 09:00 Epogen SUB-Q Q14D XUAN Guaifenesin 600 mg 06/09/19 23:10 06/11/19 09:51 Mucinex 12 Hr Tab PO 600 mg Q12HR XUAN Administration Heparin Sodium (Beef Lung) 50 units 06/10/19 09:00 06/11/19 08:14 Heparin Flush 50 Units/5 Ml IV PUSH 50 units QAM XUAN Administration Heparin Sodium (Beef Lung) 50 units 06/09/19 18:49 Heparin Flush 50 Units/5 Ml IV PUSH PRN PRN after intermittent infusion Heparin Sodium (Beef Lung
--- NOTE | 2019-06-11 11:32 | PM.PNCARD ---
Progress Note: A&P Additional Plan ischemic cardiomyopathy and Hx of CABG and LV thrombus, Hx of AF, labile INR, admitted with GI bleeding, EGD is negative, cat work up for sources of GI bleeding per primary and GI team and if unrevealing and no active bleeding, then consider restart oral anticoagulation either with warfarin at reduced dose 1 mg daily or NOAC. If repeat TTE shows no LV thrombus then apixaban can be better option because of flactuation in INR may be triggering bleeding events. Subjective Date/time seen: 06/11/19 11:32 Interval history: No acute events S/P EGD today Had black bowel movement last night, Review of Systems Review of Systems: All systems reviewed & are unremarkable except as noted in HPI and below Exam Const: General: comfortable and no acute distress Neck: Neck: no JVD Resp: Effort & Inspection: normal respiratory effort Auscultation: clear to auscultation bilaterally and no crackles Cardio: Rate: regular rate and tachycardic Heart sounds: Murmur heart sound present Other: Pansystolic murmur at apex Neuro: Speech: normal speech Extrem: General: normal to inspection and no edema Psych: Mental Status: mental status grossly normal Affect: normal affect Objective Data Vital Signs Vital Signs: Vital Signs - 24 hr 06/10/19 11:36 06/10/19 11:37 06/10/19 12:00 Temperature 36.7 C 36.7 C 36.5 C Pulse Rate 117 H 117 H 117 H Respiratory Rate 16 16 18 Blood Pressure 89/69 L 89/69 L 85/59 L Pulse Oximetry 100 100 98 06/10/19 13:48 06/10/19 14:00 06/10/19 16:00 Temperature 36.7 C Pulse Rate 115 H 116 H Respiratory Rate 18 Blood Pressure 87/61 L 87/58 L Pulse Oximetry 97 06/10/19 18:00 06/10/19 19:30 06/10/19 19:48 Temperature 36.7 C 36.7 C Pulse Rate 115 H 99 99 Respiratory Rate 18 18 Blood Pressure 94/70 L 94/70 L Pulse Oximetry 100 06/10/19 20:00 06/10/19 22:00 06/11/19 00:00 Temperature 36.6 C Pulse Rate 115 H 117 H 118 H Respiratory Rate 18 20 Blood Pressure 102/72 Pulse Oximetry 100 98 06/11/19 02:00 06/11/19 04:00 06/11/19 06:00 Temperature 36.5 C Pulse Rate 118 H 118 H 117 H Respiratory Rate 20 Blood Pressure 96/67 L Pulse Oximetry 100 06/11/19 06:48 06/11/19 07:59 06/11/19 08:09 Temperature 36.8 C Pulse Rate 118 H 115 H 115 H Respiratory Rate 18 18 19 Blood Pressure 99/68 L 95/66 L 92/65 L Pulse Oximetry 100 100 97 06/11/19 08:19 06/11/19 08:37 06/11/19 09:00 Temperature 36.8 C Pulse Rate 115 H 115 H 115 H Respiratory Rate 14 14 Blood Pressure 96/68 L 96/68 L Pulse Oximetry 100 06/11/19 09:24 06/11/19 10:00 Temperature 36.6 C Pulse Rate 115 H 115 H Respiratory Rate 16 Blood Pressure 74/42 L Pulse Oximetry 99 Intake/Output Intake/Output: Intake & Output 06/08/19 06/09/19 06/10/19 06/11/19 23:59 23:59 23:59 23:59 Intake Total 380 500 450 Output Total 1068 715 Balance 765 -319 -528 Meds/Results Medications: Active Medications Generic Name Dose Route Start Last Admin Trade Name Faisal PRN Reason Stop Dose Admin Acetaminophen 650 mg 06/09/19 22:39 06/10/19 11:43 Tylenol Tablet PO 650 mg Q4H PRN Administration Headache Clonazepam 0.5 mg 06/10/19 21:00 06/10/19 21:01 Klonopin Tablet PO 0.5 mg HS XUAN Administration Epoetin Rubén 10,000 units 06/13/19 09:00 Epogen SUB-Q Q14D XUAN Epoetin Rubén 10,000 units 06/11/19 09:00 Epogen SUB-Q TuThSa@0900 [facility] Guaifenesin 600 mg 06/09/19 23:10 06/11/19 09:51 Mucinex 12 Hr Tab PO 600 mg Q12HR XUAN Administration Heparin Sodium (Beef Lung) 50 units 06/10/19 09:00 06/11/19 08:14 Heparin Flush 50 Units/5 Ml IV PUSH 50 units QAM XUAN Administration Heparin Sodium (Beef Lung) 50 units 06/09/19 18:49 Heparin Flush 50 Units/5 Ml IV PUSH PRN PRN after intermittent infusion Heparin Sodium (Beef Lung) 50 units 06/09/19 18:49 06/11/19 05:10 Heparin Flu
--- NOTE | 2019-06-11 11:33 | PM.IMPN ---
Progress Note: A&P Assessment and Plan (1) GI bleed: Qualifiers: GI bleed type/associated pathology: unspecified gastrointestinal hemorrhage type Qualified Code(s): K92.2 - Gastrointestinal hemorrhage, unspecified Code(s): K92.2 - Gastrointestinal hemorrhage, unspecified Status: Acute Assessment and Plan: Concerning for GI loss given reports of dark stools as well as having elevated INR levels which can cause bleeding. GI was consulted secondary to the patient's black tarry stools. IV Protonix [address] Trejo evaluated and performed EGD this morning which was unremarkable. Dr. Trejo did perform balloon dilation of his esophagus due to symptoms of dysphagia. Dr. Trejo is going to perform a colonoscopy on Thursday morning due to the patient's history of polyps and continued dark stools. I thought results were positive for blood. Continue monitoring H&H in bowel movements. (2) Acute on chronic anemia: Code(s): D64.9 - Anemia, unspecified Status: Acute Assessment and Plan: The patient's baseline H&H seems to fluctuate a lot due to his end-stage renal disease. His last hemoglobin was 10.6. On arrival his hemoglobin was 8.8 and hematocrit was 27.5%. Today hemoglobin was 9.9 and hematocrit was 30.6%. Improved. Patient's anemia labs appear to show anemia chronic disease with normal B12 and folic acid levels. Continue monitoring H&H and transfuse as needed. (3) Supratherapeutic INR: Code(s): R79.1 - Abnormal coagulation profile Status: Acute Assessment and Plan: He has been on warfarin since December 2018, and he has not checked his INR the last 3 weeks the patient states. He is supposed to be getting an INR machine at his house so he can check it more frequently if necessary. Has been supratherapeutic several times since then. The patient's INR on arrival was this morning it was 6.6. He received vitamin K as well as FFP on 06/10/2019. Today the patient's INR was 2.3. Will continue to hold his warfarin since he will be having a colonoscopy on Thursday. Continue monitoring. (4) Paroxysmal atrial fibrillation: Code(s): I48.0 - Paroxysmal atrial fibrillation Status: Acute Assessment and Plan: EKG on arrival showed atrial flutter with RVR with a heart rate of 119, with a left bundle branch block. Since he has been off his metoprolol for multiple days will restart his metoprolol and monitor his heart rate closely. Telemetry this morning showed atrial flutter with RVR and a heart rate of 115 still. He did have a few runs of ventricular tachycardia overnight but he was asymptomatic. Dr. Groves cardiology evaluated the patient his metoprolol to control his heart rate 25 mg q.12 hours. He evaluated the nonsustained ventricular tachycardia on telemetry and states that this is nothing new and it is not unexpected given his low ejection fraction and history of ischemic cardiomyopathy. Due to the patient's hypotension after receiving metoprolol morning and appears at his metoprolol was discontinued by the cable installer repairer helper. Will talk to Cardiology about what they recommend at this point. He recommends discontinuing anticoagulation secondary to acute bleeding. Will continue monitoring on Telemetry and make adjustments to his medications if necessary. (5) Left ventricular apical thrombus: Code(s): I51.3 - Intracardiac thrombosis, not elsewhere classified Status: Acute Assessment and Plan: Noted on echocardiogram in December 2018, at which time he was started on warfarin. See supratherapeutic INR (6) End-stage renal disease on peritoneal dialysis: Code(s): N18.6 - End stage renal disease
[2019-06-11] MEDS: EPOETIN ALFA 10,000 UNITS/ML VIAL 10000 UNITS SUB-Q (13:42)
[2019-06-11] MEDS: ACETAMINOPHEN 325 MG TABLET 650 MG PO (19:45)
[2019-06-11] MEDS: CLONAZEPAM 0.5 MG TAB PO (21:14)
[2019-06-12] VITALS (15 sets, daily range): BP systolic 91–96; BP diastolic 61–64; PULSE 111–130; RESP 18–20; TEMP 36.2–37; O2SAT 97–100
[2019-06-12 04:52] LABS: Hematocrit 30.2 % (42.0-52.0); Hemoglobin 9.9 g/dL (14.0-18.0); Mean Corpuscular HGB Conc 32.8 g/dl (32-36); Mean Corpuscular Volume 100.7 fl (80-100); Mean Platelet Volume 10.8 fl (7.4-10.4); Platelet Count Result 173 k/mm3 (150-375); Red Cell Distribution Width 16.6 % (11.5-14.5); White Blood Count 6.1 K/mm3 (4.5-10.0)
[2019-06-12 05:06] LABS: Albumin Level 2.7 g/dL (3.5-5.1); Blood Urea Nitrogen 39 mg/dL (9-20); Calcium 8.3 mg/dL (8.4-10.2); Carbon Dioxide 27 mmol/L (22-30); Chloride 93 mmol/L (98-107); Estimated CRCL calculation 7 ml/min; Estimated Glomerular Filt Rate 6; Glucose 122 mg/dL (75-110); INR 1.6; Potassium 3.3 mmol/L (3.4-5.0); Prothrombin Time 18.2 Seconds (11.1-14.7); Sodium 130 mmol/L (137-145)
[2019-06-12] MEDS: LEVOTHYROXINE SODIUM 75 MCG TABLET PO (06:17)
[2019-06-12] MEDS: CENTRAL LINE FLUSH 10 ML IV PUSH ×2 (06:18→21:33)
[2019-06-12] MEDS: PRAVASTATIN SODIUM 20 MG TABLET 80 MG PO (08:20)
[2019-06-12] MEDS: VITAMIN B CMPLX/VIT C/FOLIC AC 1 CAPSULE 1 CAP PO (08:20)
[2019-06-12] MEDS: PANTOPRAZOLE SODIUM IV 40 MG VIAL IV PUSH ×2 (08:20→21:33)
[2019-06-12] MEDS: MAGNESIUM OXIDE 400 MG TABLET PO (08:20)
[2019-06-12] MEDS: SERTRALINE HCL 50 MG TABLET PO (08:20)
[2019-06-12] MEDS: SACCHAROMYCES BOULARDII 250 MG CAPSULE PO ×2 (08:20→21:33)
--- NOTE | 2019-06-12 08:47 | WPDGIPROGNO ---
Progress Note: A&P Additional Plan Patient is somewhat unsteady this morning. He denies any additional bleeding. Coumadin now on hold. Physical exam reveals patient to be alert. Vital signs are stable. HEENT exam he is anicteric. Lungs are clear. Heart without murmur. Abdomen is soft nontender with no organomegaly. Labs reveal hemoglobin 9.9, hematocrit 30.2, MCV 100.7. BUN 39, creatinine 8.4. Impression 1. Melena. Color stools returned to normal with Coumadin on hold. Recent EGD unremarkable. Plan is for colonoscopy in the a.m. after preparation today. 2. Anemia. Concern over GI blood loss. Patient does have a baseline anemia secondary to renal insufficiency. 3. Anticoagulation with Coumadin. Supratherapeutic INR on admission now resolved. Plan is for colonoscopy before resuming Coumadin. 4. End-stage renal disease. Patient on dialysis. Likely contributes to anemia. 5. Heart thrombus. And atrial fibrillation necessitating anticoagulation. Coumadin is had to be held because of recent GI bleeding. Cardiology following. Subjective Date/time seen: 06/12/19 08:47 Objective Data Vital Signs Vital Signs: Vital Signs - 24 hr 06/11/19 09:00 06/11/19 09:24 06/11/19 10:00 Temperature 36.6 C Pulse Rate 115 H 115 H 115 H Respiratory Rate 16 Blood Pressure Pulse Oximetry 99 06/11/19 12:00 06/11/19 14:00 06/11/19 15:57 Temperature 36.5 C Pulse Rate 115 H 116 H 118 H Respiratory Rate 18 Blood Pressure 98/60 L Pulse Oximetry 96 06/11/19 16:00 06/11/19 18:00 06/11/19 19:53 Temperature 36.2 C L 36.6 C Pulse Rate 117 H 117 H 115 H Respiratory Rate 20 20 Blood Pressure 98/59 L 96/66 L Pulse Oximetry 100 100 06/11/19 20:00 06/11/19 22:00 06/11/19 23:41 Temperature 36.7 C Pulse Rate 115 H 116 H 115 H Respiratory Rate 20 18 Blood Pressure 93/66 L Pulse Oximetry 100 100 06/12/19 00:00 06/12/19 01:51 06/12/19 04:00 Temperature 36.8 C Pulse Rate 116 H 115 H 118 H Respiratory Rate 18 18 Blood Pressure 91/63 L Pulse Oximetry 100 100 06/12/19 05:40 06/12/19 08:00 Temperature 36.9 C Pulse Rate 117 H 120 H Respiratory Rate 20 Blood Pressure 94/64 L Pulse Oximetry 100 Intake/Output Intake/Output: Intake & Output 06/09/19 06/10/19 06/11/19 06/12/19 23:59 23:59 23:59 23:59 Intake Total 380 500 710 450 Output Total 1068 1430 Balance 380 568 -720 450 Meds/Results Medications: Active Medications Generic Name Dose Route Start Last Admin Trade Name Freq PRN Reason Stop Dose Admin Acetaminophen 650 mg 06/09/19 22:39 06/11/19 19:45 Tylenol Tablet PO 650 mg Q4H PRN Administration Headache Clonazepam 0.5 mg 06/10/19 21:00 06/11/19 21:14 Klonopin Tablet PO 0.5 mg HS XUAN Administration Epoetin Rubén 10,000 units 06/13/19 09:00 Epogen SUB-Q Q14D XUAN Epoetin Rubén 10,000 units 06/11/19 09:00 06/11/19 13:42 Epogen SUB-Q 10,000 units TuThSa@0900 XUAN Administration Guaifenesin 600 mg 06/09/19 23:10 06/12/19 08:20 Mucinex 12 Hr Tab PO 600 mg Q12HR XUAN Administration Heparin Sodium (Beef Lung) 50 units 06/10/19 09:00 06/11/19 08:14 Heparin Flush 50 Units/5 Ml IV PUSH 50 units QAM XUAN Administration Heparin Sodium (Beef Lung) 50 units 06/09/19 18:49 Heparin Flush 50 Units/5 Ml IV PUSH PRN PRN after intermittent infusion Heparin Sodium (Beef Lung) 50 units 06/09/19 18:49 06/12/19 04:28 Heparin Flush 50 Units/5 Ml IV PUSH 50 units PRN PRN Administration after blood draws Heparin Sodium (Porcine) 500 units 06/09/19 18:49 Heparin Sod Flush 100 Units/Ml IV PUSH PRN PRN see comments below Sodium Chloride 500 mls @ 10 mls/hr 06/11/19 06:50 06/11/19 08:15 Normal Saline Iv IV CONT Infused .Q24H XUAN Infusion Levothyroxine Sodium 75 mcg 06/10/19 06:30 06/12/19 06:17 Synthroid PO 75 mcg DAILY@0630 [facility] Administrati
[2019-06-12] MEDS: SODIUM CHLORIDE 0.9% IV 500 ML IV CONT (10:10)
--- NOTE | 2019-06-12 11:20 | PM.IMPN ---
Progress Note: A&P Assessment and Plan (1) GI bleed: Qualifiers: GI bleed type/associated pathology: unspecified gastrointestinal hemorrhage type Qualified Code(s): K92.2 - Gastrointestinal hemorrhage, unspecified Code(s): K92.2 - Gastrointestinal hemorrhage, unspecified Status: Acute Assessment and Plan: Concerning for GI loss given reports of dark stools as well as having elevated INR levels which can cause bleeding. IV Protonix [address] Trejo evaluated and performed EGD 06/11/[address] Trejo did perform balloon dilation of his esophagus due to symptoms of dysphagia. Dr. Trejo is going to perform a colonoscopy tomorrow due to the patient's history of polyps and continued dark stools. IFOB results were positive for blood. Continue monitoring H&H in bowel movements. (2) Acute on chronic anemia: Code(s): D64.9 - Anemia, unspecified Status: Acute Assessment and Plan: The patient's baseline H&H seems to fluctuate a lot due to his end-stage renal disease. His last hemoglobin was 10.6. On arrival his hemoglobin was 8.8 and hematocrit was 27.5%. Today hemoglobin was 9.9 and hematocrit was 30.2%. Stable. Patient's anemia labs appear to show anemia chronic disease with normal B12 and folic acid levels. Continue monitoring H&H and transfuse as needed. (3) Lightheadedness: Code(s): R42 - Dizziness and giddiness Status: Acute Assessment and Plan: The patient reported feeling lightheaded while sitting up in the chair this morning. His blood pressure was checked and it was 89/65. Bao hose were ordered as well as normal saline 500 cc fluid bolus. This could be secondary to some dehydration associated with his peritoneal dialysis. The plan is to continue monitoring his blood pressure and symptoms. (4) Supratherapeutic INR: Code(s): R79.1 - Abnormal coagulation profile Status: Acute Assessment and Plan: He has been on warfarin since December 2018, and he has not checked his INR the last 3 weeks the patient states. He is supposed to be getting an INR machine at his house so he can check it more frequently if necessary. Has been supratherapeutic several times since then. The patient's INR on arrival was 6.6. He received vitamin K as well as FFP on 06/10/2019. Today the patient's INR was 1.6. Will continue to hold his warfarin since he will be having a colonoscopy on Thursday. Cardiology is on board and would appreciate the recommendations on continuing anticoagulation verses not due to risk of bleeding. Continue monitoring. (5) Paroxysmal atrial fibrillation: Code(s): I48.0 - Paroxysmal atrial fibrillation Status: Acute Assessment and Plan: EKG on arrival showed atrial flutter with RVR with a heart rate of 119, with a left bundle branch block. Since he has been off his metoprolol for multiple days will restart his metoprolol and monitor his heart rate closely. Telemetry this morning showed normal sinus rhythm and atrial flutter with RVR and a heart rate of 120 still. He did have a few runs of ventricular tachycardia overnight but he was asymptomatic. Dr. Groves cardiology evaluated the patient and want him to continue on his metoprolol due to his tachycardia. But after receiving 1 dose of his metoprolol he became hypotensive and was symptomatic. Dr. Groves then discontinued the medication that evening. He is currently not on a rate control medication. Dr. Groves evaluated the nonsustained ventricular tachycardia on telemetry and states that this is nothing new and it is not unexpected given his low ejection fraction and history of ischemic cardiomyopathy. Will see what Cardiology suggests on an
--- NOTE | 2019-06-12 11:39 | PCPTNOTE ---
Attempted to see Yordy this date - checked with RN prior to visit. She stated that he was having episodes of V tach and that I was not to see him for PT evaluation. Will check back tomorrow.
--- NOTE | 2019-06-12 11:49 | PM.PNCARD ---
Progress Note: A&P Additional Plan ischemic cardiomyopathy and Hx of CABG and LV thrombus, atrial flutter with RVR, labile INR, admitted with GI bleeding, EGD is negative, plan, resume metoprolol, IV fluids 500 * 1 and can be repeated as needed, correct hypokalemia and check serum Mg level, work up for sources of GI bleeding per primary and GI team, coloscopy in AM, and if unrevealing and no active bleeding, then consider restart oral anticoagulation either with warfarin at reduced dose 1 mg daily or NOAC. If repeat TTE shows no LV thrombus then apixaban can be better option because of flactuation in INR may be triggering bleeding events. Subjective Date/time seen: 06/12/19 11:49 Interval history: feeling dizzy this morning HR has been up to 140 (A flutter) Review of Systems Review of Systems: All systems reviewed & are unremarkable except as noted in HPI and below Exam Const: General: comfortable and no acute distress Neck: Neck: supple and no JVD Resp: Effort & Inspection: normal respiratory effort Auscultation: clear to auscultation bilaterally Cardio: Rhythm: abnormal rhythm Heart sounds: no gallops and Murmur heart sound present (systolic murmur of MR) GI: Inspection: non-distended Skin: General skin exam: normal color Neuro: Cognition (Neuro): normal cognition Speech: normal speech Extrem: General: normal to inspection and no edema Psych: Mental Status: mental status grossly normal Affect: normal affect Objective Data Vital Signs Vital Signs: Vital Signs - 24 hr 06/11/19 12:00 06/11/19 14:00 06/11/19 15:57 Temperature 36.5 C Pulse Rate 115 H 116 H 118 H Respiratory Rate 18 Blood Pressure 98/60 L Pulse Oximetry 96 06/11/19 16:00 06/11/19 18:00 06/11/19 19:53 Temperature 36.2 C L 36.6 C Pulse Rate 117 H 117 H 115 H Respiratory Rate 20 20 Blood Pressure 98/59 L 96/66 L Pulse Oximetry 100 100 06/11/19 20:00 06/11/19 22:00 06/11/19 23:41 Temperature 36.7 C Pulse Rate 115 H 116 H 115 H Respiratory Rate 20 18 Blood Pressure 93/66 L Pulse Oximetry 100 100 06/12/19 00:00 06/12/19 01:51 06/12/19 04:00 Temperature 36.8 C Pulse Rate 116 H 115 H 118 H Respiratory Rate 18 18 Blood Pressure 91/63 L Pulse Oximetry 100 100 06/12/19 05:40 06/12/19 08:00 06/12/19 10:00 Temperature 36.9 C Pulse Rate 117 H 118 H 130 H Respiratory Rate 20 Blood Pressure 94/64 L Pulse Oximetry 100 Intake/Output Intake/Output: Intake & Output 06/09/19 06/10/19 06/11/19 06/12/19 23:59 23:59 23:59 23:59 Intake Total 380 500 710 570 Output Total 1068 1430 Balance 606 -560 -806 918 Meds/Results Medications: Active Medications Generic Name Dose Route Start Last Admin Trade Name Freq PRN Reason Stop Dose Admin Acetaminophen 650 mg 06/09/19 22:39 06/11/19 19:45 Tylenol Tablet PO 650 mg Q4H PRN Administration Headache Clonazepam 0.5 mg 06/10/19 21:00 06/11/19 21:14 Klonopin Tablet PO 0.5 mg HS XUAN Administration Epoetin Rubén 10,000 units 06/13/19 09:00 Epogen SUB-Q Q14D XUAN Epoetin Rubén 10,000 units 06/11/19 09:00 06/11/19 13:42 Epogen SUB-Q 10,000 units TuThSa@0900 [facility] Administration Guaifenesin 600 mg 06/09/19 23:10 06/12/19 08:20 Mucinex 12 Hr Tab PO 600 mg Q12HR XUAN Administration Heparin Sodium (Beef Lung) 50 units 06/10/19 09:00 06/12/19 09:48 Heparin Flush 50 Units/5 Ml IV PUSH 50 units QAM XUAN Administration Heparin Sodium (Beef Lung) 50 units 06/09/19 18:49 Heparin Flush 50 Units/5 Ml IV PUSH PRN PRN after intermittent infusion Heparin Sodium (Beef Lung) 50 units 06/09/19 18:49 06/12/19 04:28 Heparin Flush 50 Units/5 Ml IV PUSH 50 units PRN PRN Administration after blood draws Heparin Sodium (Porcine) 500 units 06/09/19 18:49 Heparin Sod Flush 100 Units/Ml IV PUSH PRN PRN see comments below Sodium Chloride 500 mls @ 10 ml
[2019-06-12] MEDS: PEG (High)/E-LYTE SOLN 4,000 ML BTL 4000 ML PO (12:39)
[2019-06-12] MEDS: POTASSIUM CHLORIDE 20 MEQ TABLET 40 MEQ PO ×2 (12:39→17:14)
[2019-06-12 13:04] LABS: Magnesium 1.7 mg/dL (1.6-2.3)
[2019-06-12] MEDS: METOPROLOL TARTRATE 12.5 MG TABLET PO (14:27)
--- NOTE | 2019-06-12 14:52 | P.PNNP_ITS ---
Progress Note: A&P Assessment and Plan (1) End stage renal disease: Code(s): N18.6 - End stage renal disease Status: Chronic Assessment and Plan: * continue CCPD treatments nightly * follow electrolytes, volume status, and clearance * relative hypotension sometimes limits fluid removal/ultrafiltration - consider trial of midodrine? (2) Acute on chronic anemia: Code(s): D64.9 - Anemia, unspecified Status: Acute Assessment and Plan: * due ESRD + acute blood loss * acute blood loss due to GI bleed (guaiac +) worsened/complicated by #3 * Gastroenterology following -- negative EGD and plan colonoscopy tomorrow * PRBC transfusion PRN * Epogen 3x/week while hospitalized (3) Supratherapeutic INR: Code(s): R79.1 - Abnormal coagulation profile Status: Acute Assessment and Plan: * has had this issue in the past * coumadin on hold * follow INR * Cardiology following as well (4) Ischemic cardiomyopathy: Code(s): I25.5 - Ischemic cardiomyopathy Status: Acute Assessment and Plan: * appears compensated at this time * continue ultrafiltration with CCPD to maintain euvolemia (5) Essential hypertension: Code(s): I10 - Essential (primary) hypertension Status: Acute Assessment and Plan: * not really an issue * if anything, has relative hypotension * follow hemodynamics Will continue to follow. Subjective Date/time seen: 06/12/19 14:52 Tolerated CCPD treatment overnight without any problems or issues; still feels quite weak/fatigue in general; noted low BP which is not a chronic issue; no further black stools; s/p EGD yesterday with no acute findings. Exam Narrative: Exam Narrative: General: elderly male in NAD Heart: normal S1 and S2; no rub Lungs: clear to auscultation Abdomen: soft, nontender, nondistended, positive bowel sounds Extremities: no cyanosis or clubbing; no edema Skin: no rash or nodules Objective Data Vital Signs Vital Signs: Vital Signs Temp Pulse Resp BP Pulse Ox 06/12/19 14:27 126 H 06/12/19 14:00 118 H 06/12/19 12:23 37.0 C 118 H 20 96/63 L 97 06/12/19 12:00 123 H 06/12/19 10:00 130 H 06/12/19 08:00 36.9 C 118 H 20 94/64 L 100 06/12/19 05:40 117 H 06/12/19 04:00 36.8 C 118 H 18 91/63 L 100 06/12/19 01:51 115 H 06/12/19 00:00 116 H 18 100 06/11/19 23:41 36.7 C 115 H 18 93/66 L 100 06/11/19 22:00 116 H 06/11/19 20:00 115 H 20 100 06/11/19 19:53 36.6 C 115 H 20 96/66 L 100 06/11/19 18:00 117 H 06/11/19 16:00 36.2 C L 117 H 20 98/59 L 100 06/11/19 15:57 118 H Intake/Output Intake/Output: Intake & Output 06/09/19 06/10/19 06/11/19 06/12/19 23:59 23:59 23:59 23:59 Intake Total 380 316 422 018 Output Total 1067 4110 Balance 762 -369 -707 108 Meds/Results Medications: Active Medications Generic Name Dose Route Start Last Admin Trade Name Freq PRN Reason Stop Dose Admin Acetaminophen 650 mg 06/09/19 22:39 06/11/19 19:45 Tylenol Tablet PO 650 mg Q4H PRN Administration Headache Clonazepam 0.5 mg
--- NOTE | 2019-06-12 14:52 | PM.PNNEP ---
Progress Note: A&P Assessment and Plan (1) End stage renal disease: Code(s): N18.6 - End stage renal disease Status: Chronic Assessment and Plan: continue CCPD treatments nightly follow electrolytes, volume status, and clearance relative hypotension sometimes limits fluid removal/ultrafiltration - consider trial of midodrine? (2) Acute on chronic anemia: Code(s): D64.9 - Anemia, unspecified Status: Acute Assessment and Plan: due ESRD + acute blood loss acute blood loss due to GI bleed (guaiac +) worsened/complicated by #3 Gastroenterology following -- negative EGD and plan colonoscopy tomorrow PRBC transfusion PRN Epogen 3x/week while hospitalized (3) Supratherapeutic INR: Code(s): R79.1 - Abnormal coagulation profile Status: Acute Assessment and Plan: has had this issue in the past coumadin on hold follow INR Cardiology following as well (4) Ischemic cardiomyopathy: Code(s): I25.5 - Ischemic cardiomyopathy Status: Acute Assessment and Plan: appears compensated at this time continue ultrafiltration with CCPD to maintain euvolemia (5) Essential hypertension: Code(s): I10 - Essential (primary) hypertension Status: Acute Assessment and Plan: not really an issue if anything, has relative hypotension follow hemodynamics Will continue to follow. Subjective Date/time seen: 06/12/19 14:52 Tolerated CCPD treatment overnight without any problems or issues; still feels quite weak/fatigue in general; noted low BP which is not a chronic issue; no further black stools; s/p EGD yesterday with no acute findings. Exam Narrative: Exam Narrative: General: elderly male in NAD Heart: normal S1 and S2; no rub Lungs: clear to auscultation Abdomen: soft, nontender, nondistended, positive bowel sounds Extremities: no cyanosis or clubbing; no edema Skin: no rash or nodules Objective Data Vital Signs Vital Signs: Vital Signs Temp Pulse Resp BP Pulse Ox 06/12/19 14:27 126 H 06/12/19 14:00 118 H 06/12/19 12:23 37.0 C 118 H 20 96/63 L 97 06/12/19 12:00 123 H 06/12/19 10:00 130 H 06/12/19 08:00 36.9 C 118 H 20 94/64 L 100 06/12/19 05:40 117 H 06/12/19 04:00 36.8 C 118 H 18 91/63 L 100 06/12/19 01:51 115 H 06/12/19 00:00 116 H 18 100 06/11/19 23:41 36.7 C 115 H 18 93/66 L 100 06/11/19 22:00 116 H 06/11/19 20:00 115 H 20 100 06/11/19 19:53 36.6 C 115 H 20 96/66 L 100 06/11/19 18:00 117 H 06/11/19 16:00 36.2 C L 117 H 20 98/59 L 100 06/11/19 15:57 118 H Intake/Output Intake/Output: Intake & Output 06/09/19 06/10/19 06/11/19 06/12/19 23:59 23:59 23:59 23:59 Intake Total 380 500 710 570 Output Total 1068 1430 Balance 038 -690 -745 090 Meds/Results Medications: Active Medications Generic Name Dose Route Start Last Admin Trade Name Freq PRN Reason Stop Dose Admin Acetaminophen 650 mg 06/09/19 22:39 06/11/19 19:45 Tylenol Tablet PO 650 mg Q4H PRN Administration Headache Clonazepam 0.5 mg 06/10/19 21:00 06/11/19 21:14 Klonopin Tablet PO 0.5 mg HS XUAN Administration Epoetin Rubén 10,000 units 06/13/19 09:00 Epogen SUB-Q Q14D XUAN Epoetin Rubén 10,000 units 06/11/19 09:00 06/11/19 13:42 Epogen SUB-Q 10,000 units TuThSa@0900 [facility] Administration Guaifenesin 600 mg 06/09/19 23:10 06/12/19 08:20 Mucinex 12 Hr Tab PO 600 mg Q12HR XUAN Administration Heparin Sodium (Beef Lung) 50 units 06/10/19 09:00 06/12/19 09:48 Heparin Flush 50 Units/5 Ml IV PUSH 50 units QAM XUAN Administration Heparin Sodium (Beef Lung) 50 units 06/09/19 18:49 Heparin Flush 50 Units/5 Ml IV PUSH PRN PRN after intermittent infusion Heparin Sodium (Beef Lung) 50 units 06/09/19 18:49 06/12/19 04:28 Heparin Flush 50 Un
[2019-06-12 20:32] LABS: Blood Urea Nitrogen 38 mg/dL (9-20); Calcium 8.4 mg/dL (8.4-10.2); Carbon Dioxide 21 mmol/L (22-30); Chloride 96 mmol/L (98-107); Estimated CRCL calculation 6 ml/min; Estimated Glomerular Filt Rate 5; Glucose 114 mg/dL (75-110); Magnesium 1.7 mg/dL (1.6-2.3); Potassium 4.6 mmol/L (3.4-5.0); Sodium 132 mmol/L (137-145)
[2019-06-12] MEDS: CLONAZEPAM 0.5 MG TAB PO (21:33)
[2019-06-12] MEDS: METOPROLOL TARTRATE 25 MG TABLET PO (21:33)
[2019-06-13] VITALS (21 sets, daily range): BP systolic 83–105; BP diastolic 52–70; PULSE 106–116; RESP 14–26; TEMP 36.3–37.2; O2SAT 97–100
--- NOTE | 2019-06-13 | ECHO_ITS ---
Patient Info Name: Yordy Drake Age: 79 years : 1940 Gender: Male Ht: 68 in Wt: 174 lbs BSA: 1.96 m2 HR: 111 bpm BP: 93 / 57 mmHg Technical Quality: Good Exam Date: 06/13/2019 1:07 PM Exam Location: [facility] Patient Status: Inpatient Admit Date: 06/10/2019 Staff Ordering Physician: Lauren Segundo PA-C [employer] Teacher: Gunner Ha, JARED, RT Attending Provider: Lauren Segundo PA-C Referring Physician: Sanya CASILLAS; Exam Type: CA echo dop color flow w con Study Info Indications I50.9 - Heart failure, unspecified Complete two-dimensional, color flow and Doppler transthoracic echocardiogram is performed with contrast to opacify the left ventrical and to improve the deliniation of the left ventrical endocarial boarders. History/Risk Factors Renal Disease: Yes Dialysis: Current Prior Interventions ICD: Yes Summary 1. Severe LV enlargement, normal wall thickness; severe global LV systolic dysfunction, ejection fraction calculated at 10%. Diastolic dysfunction is present with elevated left heart pressures. G LS severely abnormal at-1.2. Moderate left and mild right atrial enlargement. RV is hypokinetic; flattened interventricular septum in systole and diastole consistent with RV pressure and volume overload. Linear artifact-pacemaker/ICD leads in the RA and RV. Mitral valve leaflets mildly thickened, mild mitral annular calcification, moderate eccentric mitral regurgitation. Aortic valve sclerosis, calculated NALINI 1.2 cm2 which could be underestimation of the aortic valve area due to severe LV systolic dysfunction; mild aortic regurgitation. Moderate TR, moderate severe pulmonary hypertension, RVSP 56 mmHg. Dilated IVC without respiratory collapse. Left Ventricle Left ventricular chamber dimension is severely enlarged. Left ventricular systolic function is normal, estimated at <15%. There is no increased left ventricular wall thickness. Left ventricular septal wall motion is abnormal. The left ventricular diastolic function is abnormal. Right Ventricle Right ventricular chamber dimension is normal. Right ventricular systolic function is normal. Left Atria Left atrial chamber dimension is moderately enlarged. Right Atria Right atrial chamber dimension is mildly enlarged. Aortic Valve There is moderate aortic valve sclerosis. There is moderate aortic valve stenosis with a peak velocity of 165.29 cm/s, mean gradient of 6 mmHg, and aortic valve area of 1.14 cm2. There is mild aortic valve regurgitation. Pulmonic Valve The pulmonic valve is normal. There is trace pulmonic regurgitation. Mitral Valve The mitral valve has thickened leaflets. There is moderate mitral valve regurgitation. The mitral valve annulus is mildly calcified. Tricuspid Valve The tricuspid valve leaflets are normal. There is moderate to severe tricuspid valve regurgitation. No pulmonary hypertension, estimated pulmonary arterial systolic pressure is 56 mmHg. Pericardium/Pleural The pericardium appears normal. There is no pericardial effusion. Inferior Vena Cava Dilated inferior vena cava with no collapse upon inspiration consistent with elevated right atrial pressure, 15 mmHg. Aorta The aortic root size at the sinus of Valsalva is normal. The prox ascending aorta size is normal. Left Ventricular Outflow Tract Name Value Nor
[2019-06-13] MEDS: SODIUM CHLORIDE 0.9% IV 500 ML 999 ML IV CONT (05:46)
[2019-06-13] MEDS: LEVOTHYROXINE SODIUM 75 MCG TABLET PO (05:48)
[2019-06-13] MEDS: CENTRAL LINE FLUSH 10 ML IV PUSH ×3 (05:52→20:58)
[2019-06-13 05:59] LABS: Hematocrit 32.2 % (42.0-52.0); Hemoglobin 10.5 g/dL (14.0-18.0); Mean Corpuscular HGB Conc 32.6 g/dl (32-36); Mean Corpuscular Hemoglobin 33.5 pg (26-34); Mean Corpuscular Volume 102.9 fl (80-100); Platelet Count Result 187 k/mm3 (150-375); Red Blood Count 3.13 M/mm3 (4.6-6.20); Red Cell Distribution Width 16.9 % (11.5-14.5); White Blood Count 9.5 K/mm3 (4.5-10.0)
[2019-06-13 06:21] LABS: Blood Urea Nitrogen 42 mg/dL (9-20); Calcium 8.3 mg/dL (8.4-10.2); Carbon Dioxide 23 mmol/L (22-30); Chloride 95 mmol/L (98-107); Estimated CRCL calculation 6 ml/min; Estimated Glomerular Filt Rate 5; Glucose 77 mg/dL (75-110); INR 1.6; Phosphorus 5.2 mg/dL (2.5-4.5); Potassium 4.3 mmol/L (3.4-5.0); Prothrombin Time 18.3 Seconds (11.1-14.7); Sodium 133 mmol/L (137-145)
--- NOTE | 2019-06-13 08:42 | PM.PNCARD ---
Progress Note: A&P Additional Plan 79-year-old man with ischemic heart disease, ischemic cardiomyopathy, moderate to severe aortic valve stenosis and atrial fibrillation. Patient is anticoagulated chronically with Coumadin that has now been discontinued because of melanotic stool and drop in hemoglobin. As stated in my initial note this is his 2nd admission with a supratherapeutic INR within the last month Plan for colonoscopy today. Hopefully discharge soon after colonoscopy has been completed. Decision to be made as an outpatient whether or not to resume systemic anticoagulation. Clay Groves MD [facility] Subjective Date/time seen: Date of service: 06/13/19 08:42 Interval history: Follow-up visit for 79-year-old gentleman with complex history of coronary artery disease valvular heart disease and atrial fibrillation. Patient was admitted last week because of his clinical symptoms and problems related to GI bleeding, melanotic stool and drop in hemoglobin. EGD and Thursday apparently was negative Colonoscopy planned for today Coumadin has been discontinued Patient is asymptomatic and waiting for colonoscopy Exam Const: General: comfortable and no acute distress HENMT: Mouth: Yes dry mucous membranes Eyes: Sclera: sclerae normal Pupils: Equal, round and reactive pupils present Neck: Neck: supple and no JVD Thyroid: thyroid normal Resp: Effort & Inspection: normal respiratory effort Auscultation: clear to auscultation bilaterally Cardio: Rhythm: abnormal rhythm irregularly irregular Heart sounds: Murmur heart sound present systolic II/ and at the left sternal border Skin: General skin exam: normal color Neuro: Cognition (Neuro): normal cognition Extrem: Other: Mild bilateral lower extremity edema Objective Data Vital Signs Vital Signs: Vital Signs - 24 hr 06/12/19 10:00 06/12/19 12:00 06/12/19 12:23 Temperature 37.0 C Pulse Rate 130 H 123 H 118 H Respiratory Rate 20 Blood Pressure 96/63 L Pulse Oximetry 97 06/12/19 14:00 06/12/19 14:27 06/12/19 16:00 Temperature 36.2 C L Pulse Rate 118 H 126 H 115 H Respiratory Rate 20 Blood Pressure 93/61 L Pulse Oximetry 100 06/12/19 18:00 06/12/19 20:00 06/12/19 22:00 Temperature Pulse Rate 113 H 113 H 112 H Respiratory Rate 20 Blood Pressure 91/63 L Pulse Oximetry 97 06/12/19 23:56 06/13/19 00:00 06/13/19 02:00 Temperature 36.3 C L Pulse Rate 111 H 112 H 111 H Respiratory Rate 20 Blood Pressure 84/59 L Pulse Oximetry 99 06/13/19 03:48 06/13/19 04:00 06/13/19 06:00 Temperature 36.8 C Pulse Rate 112 H 114 H 114 H Respiratory Rate 20 Blood Pressure 84/61 L Pulse Oximetry 100 06/13/19 06:30 06/13/19 08:00 Temperature 37.2 C Pulse Rate 116 H Respiratory Rate 20 Blood Pressure 93/57 L 90/62 L Pulse Oximetry 100 Intake/Output Intake/Output: Intake & Output 06/10/19 06/11/19 06/12/19 06/13/19 23:59 23:59 23:59 23:59 Intake Total 500 523 989 1862 Output Total 1068 1430 Balance -568 -870 465 8616 Meds/Results Medications: Active Medications Generic Name Dose Route Start Last Admin Trade Name Freq PRN Reason Stop Dose Admin Acetaminophen 650 mg 06/09/19 22:39 06/11/19 19:45 Tylenol Tablet PO 650 mg Q4H PRN Administration Headache Clonazepam 0.5 mg 06/10/19 21:00 06/12/19 21:33 Klonopin Tablet PO 0.5 mg HS XUAN Administration Epoetin Rubén 10,000 units 06/13/19 09:00 Epogen SUB-Q Q14D XUAN Epoetin Rubén 10,000 units 06/11/19 09:00 06/11/19 13:42 Epogen SUB-Q 10,000 units TuThSa@0900 [facility] Administration Guaifenesin 600 mg 06/09/19 23:10 06/12/19 21:33 Mucinex 12 Hr Tab PO 600 mg Q12HR XUAN Administration Heparin Sodium (Beef Lung) 50 units 06/10/19 09:00 06/12/19 09:48 Heparin Flush 50 Units/5 Ml IV PUSH 50 units QAM XUAN Administration Heparin Sodium (Beef Lung) 50 units 06/09/19 18:49 Hepar
[2019-06-13] MEDS: PANTOPRAZOLE SODIUM IV 40 MG VIAL IV PUSH ×2 (09:11→20:57)
[2019-06-13] MEDS: SACCHAROMYCES BOULARDII 250 MG CAPSULE PO (09:11)
[2019-06-13] MEDS: PRAVASTATIN SODIUM 20 MG TABLET 80 MG PO (09:11)
[2019-06-13] MEDS: MAGNESIUM OXIDE 400 MG TABLET PO (09:12)
[2019-06-13] MEDS: METOPROLOL TARTRATE 25 MG TABLET PO ×2 (09:12→20:57)
--- NOTE | 2019-06-13 09:12 | PM.PNNEP ---
Progress Note: A&P Assessment and Plan (1) End stage renal disease: Code(s): N18.6 - End stage renal disease Status: Chronic Assessment and Plan: continue CCPD treatments nightly Last night's was held because of his bowel prep. Potassium and bicarbonate are doing fine. Volume status looks okay. Blood pressure is chronically low due to his cardiomyopathy. (2) Acute on chronic anemia: Code(s): D64.9 - Anemia, unspecified Status: Acute Assessment and Plan: due ESRD + acute blood loss Getting blood transfusions. He is also getting Epogen. (3) Supratherapeutic INR: Code(s): R79.1 - Abnormal coagulation profile Status: Acute Assessment and Plan: has had this issue in the past coumadin on hold follow INR Cardiology following as well when to put him back on anticoagulants, probably as an outpatient if at all. (4) Ischemic cardiomyopathy: Code(s): I25.5 - Ischemic cardiomyopathy Status: Acute Assessment and Plan: appears compensated at this time EF is very low. continue ultrafiltration with CCPD to maintain euvolemia (5) Essential hypertension: Code(s): I10 - Essential (primary) hypertension Status: Acute Assessment and Plan: not really an issue Subjective Date/time seen: 06/13/19 09:12 Interval history: Yordy is a very pleasant gentleman who is here for GI bleeding. He has end-stage dialysis. He is getting peritoneal dialysis nightly. He was anemic due to the GI bleed. He has received some blood. Coumadin was discontinued. He has not seen blood in his stools the last couple of days. No belly pain. No nausea. Review of Systems Cardiovascular: Cardiovascular: Reports no additional cardiovascular complaints Respiratory: Respiratory: Reports no additional respiratory complaints Gastrointestinal: Gastrointestinal: Reports no additional gastrointestinal complaints Genitourinary: Genitourinary: Reports no additional male genitourinary complaints Exam Narrative: Exam Narrative: General: elderly male in NAD Heart: normal S1 and S2; no rub or gallop Lungs: clear to auscultation Abdomen: soft, nontender, nondistended, positive bowel sounds Extremities:no edema Skin: no rash Objective Data Vital Signs Vital Signs: Vital Signs - 24 hr 06/12/19 10:00 06/12/19 12:00 06/12/19 12:23 Temperature 37.0 C Pulse Rate 130 H 123 H 118 H Respiratory Rate 20 Blood Pressure 96/63 L Pulse Oximetry 97 06/12/19 14:00 06/12/19 14:27 06/12/19 16:00 Temperature 36.2 C L Pulse Rate 118 H 126 H 115 H Respiratory Rate 20 Blood Pressure 93/61 L Pulse Oximetry 100 06/12/19 18:00 06/12/19 20:00 06/12/19 22:00 Temperature Pulse Rate 113 H 113 H 112 H Respiratory Rate 20 Blood Pressure 91/63 L Pulse Oximetry 97 06/12/19 23:56 06/13/19 00:00 06/13/19 02:00 Temperature 36.3 C L Pulse Rate 111 H 112 H 111 H Respiratory Rate 20 Blood Pressure 84/59 L Pulse Oximetry 99 06/13/19 03:48 06/13/19 04:00 06/13/19 06:00 Temperature 36.8 C Pulse Rate 112 H 114 H 114 H Respiratory Rate 20 Blood Pressure 84/61 L Pulse Oximetry 100 06/13/19 06:30 06/13/19 08:00 Temperature 37.2 C Pulse Rate 116 H Respiratory Rate 20 Blood Pressure 93/57 L 90/62 L Pulse Oximetry 100 Intake/Output Intake/Output: Intake & Output 06/10/19 06/11/19 06/12/19 06/13/19 23:59 23:59 23:59 23:59 Intake Total 500 564 238 4385 Output Total 1068 1430 Balance -568 -328 408 9206 Meds/Results Medications: Active Medications Generic Name Dose Route Start Last Admin Trade Name Freq PRN Reason Stop Dose Admin Acetaminophen 650 mg 06/09/19 22:39 06/11/19 19:45 Tylenol Tablet PO 650 mg Q4H PRN Administration Headache Clonazepam 0.5 mg 06/10/19 21:00 06/12/19 21:33 Klonopin Tablet PO 0.5 mg HS [facility] Administrat
[2019-06-13] MEDS: SERTRALINE HCL 50 MG TABLET PO (09:13)
[2019-06-13] MEDS: VITAMIN B CMPLX/VIT C/FOLIC AC 1 CAPSULE 1 CAP PO (09:13)
[2019-06-13] MEDS: EPOETIN ALFA 10,000 UNITS/ML VIAL 10000 UNITS SUB-Q (09:23)
--- NOTE | 2019-06-13 10:16 | P.PNAN_ITS ---
Anes - Eval Final PreProcedure Day of Procedure 06/13/19 10:16 Patient weight: normal Heart: regular rate and rhythm Lungs: clear to auscultation Airway: Mallampati scale class II Neurological: alert and oriented Last oral intake: >/= 8 hours ASA classification: IV Emergent: no Anesthetic plan: proceed Anesthesia type and monitoring: general GIVS and standard monitoring Informed Consent: The patient's anesthetic plan and its attendant risks and b enefits were discussed with the patient/family/POA. Questions were solicited and answers provided to the satisfaction of the patient/family/POA.
[2019-06-13] MEDS: SODIUM CHLORIDE 0.9% IV 500 ML 10 ML IV CONT (10:17)
--- NOTE | 2019-06-13 11:42 | PCDIET ---
Nutrition Follow-Up Complete: Nutrition Diagnosis: Inadequate oral intake at present related to GI bleed as evidenced by NPO status. Nutrition Goal: Patient to meet estimated nutritional needs. Goal in progress. Patient was NPO prior to colonoscopy today, but diet has just advanced to renal dialysis diet. Last recorded weight is 80.7 kg which is stable. Bowel Motility: +Diarrhea 2/2 bowel prep. Labs Reviewed: BUN (42), Cr (9.7), Na (133), Alb (3.0), PO4 (5.2) Meds Noted: Epogen, Mag-Ox, Protonix, Florastor, Nephrocaps Additional Notes: Corrected calcium in goal range. Colonoscopy showed diverticulosis and internal hemorrhoids. No documented skin breakdown. Will continue to monitor with same goal. Nutrition Monitoring and Evaluation: Follow up every 3 days.
[2019-06-13] MEDS: PERFLUTREN LIPID MICROSPHERES 1.5 ML VIAL DILUTED TO 10 ML TOTAL VOLUME IV PUSH (13:49)
--- NOTE | 2019-06-13 14:06 | PM.DS ---
DS: Diagnosis Admitting Diagnosis Admitting Diagnosis: GI Bleed and supratherapeutic INR Discharge Diagnosis (1) GI bleed: Qualifiers: GI bleed type/associated pathology: unspecified gastrointestinal hemorrhage type Qualified Code(s): K92.2 - Gastrointestinal hemorrhage, unspecified Code(s): K92.2 - Gastrointestinal hemorrhage, unspecified Status: Acute Assessment and Plan: Concerning for GI loss given reports of dark stools as well as having elevated INR levels which can cause bleeding. IFOB results were positive for blood. IV Protonix [address] Trejo evaluated and performed EGD 06/11/[address] Trejo did perform balloon dilation of his esophagus due to symptoms of dysphagia. Dr. Trejo performed a colonoscopy today which showed diverticulosis and large internal hemorrhoids with a stigmata of bleeding from the hemorrhoids. The patient has not noticed anymore black tarry stools or bright red blood during his colonoscopy prep last night or today. H&H has improved. Plans for discharge home on a High Fiber diet due to Diverticulosis per GI. (2) Acute on chronic anemia: Code(s): D64.9 - Anemia, unspecified Status: Acute Assessment and Plan: The patient's baseline H&H seems to fluctuate a lot due to his end-stage renal disease. His last hemoglobin was 10.6. On arrival his hemoglobin was 8.8 and hematocrit was 27.5%. Today hemoglobin was 10.5 and hematocrit was 32.2%. Improved. Patient's anemia labs appear to show anemia chronic disease with normal B12 and folic acid levels. Will recheck CBC in 1 week and have him follow up with PCP. (3) Lightheadedness: Code(s): R42 - Dizziness and giddiness Status: Acute Assessment and Plan: The patient reported feeling lightheaded while sitting up in the chair yesterday. His blood pressure was checked and it was 89/65. Bao hose were ordered as well as normal saline 500 cc fluid bolus. This could be secondary to some dehydration associated with his peritoneal dialysis. This morning the patient reports feeling better without anymore episodes of lightheadedness or dizziness. The patient had just recently gotten back from his colonoscopy and was still slightly drowsy. After eating lunch and getting up to move around he is still feeling well and orthostatics were normal. (4) Supratherapeutic INR: Code(s): R79.1 - Abnormal coagulation profile Status: Acute Assessment and Plan: He has been on warfarin since December 2018, and he has not checked his INR the last 3 weeks the patient states. He is supposed to be getting an INR machine at his house so he can check it more frequently if necessary. Has been supratherapeutic several times since then. The patient's INR on arrival was 6.6. He received vitamin K as well as FFP on 06/10/2019. Today the patient's INR was 1.6. Cardiology evaluated the patient and feels at this time he should not be on anticoagulation. They would like for him to follow up with 07/04/[address] Cm and further can be discussed at that time. (5) Paroxysmal atrial fibrillation: Code(s): I48.0 - Paroxysmal atrial fibrillation Status: Acute Assessment and Plan: EKG on arrival showed atrial flutter with RVR with a heart rate of 119, with a left bundle branch block. Since he has been off his metoprolol for multiple days will restart his metoprolol and monitor his heart rate closely. Telemetry this morning showed normal sinus rhythm and atrial flutter with RVR and a heart rate of 120 still. He did have a few runs of ventricular tachycardia overnight but he was asymptomatic. Dr. Groves cardiology evaluated the patie
--- NOTE | 2019-06-13 14:59 | PM.IMPN ---
Progress Note: A&P Assessment and Plan (1) Generalized weakness: Code(s): R53.1 - Weakness Status: Acute Assessment and Plan: The patient reports having generalized weakness, fatigue over the last few days. Physical and occupational therapy evaluated him today and feel that he would benefit from a nursing home rehab. The patient is concerned about going to a nursing home rehab at this time but states we can start looking into it and he will consider it and talk to his son further about it. His discharge will be delayed secondary to this generalized weakness and further workup and trying to get him into a SNF. (2) GI bleed: Qualifiers: GI bleed type/associated pathology: unspecified gastrointestinal hemorrhage type Qualified Code(s): K92.2 - Gastrointestinal hemorrhage, unspecified Code(s): K92.2 - Gastrointestinal hemorrhage, unspecified Status: Acute Assessment and Plan: Concerning for GI loss given reports of dark stools as well as having elevated INR levels which can cause bleeding. IFOB results were positive for blood. IV Protonix [address] Trejo evaluated and performed EGD 06/11/[address] Trejo did perform balloon dilation of his esophagus due to symptoms of dysphagia. Dr. Trejo performed a colonoscopy today which showed diverticulosis and large internal hemorrhoids with a stigmata of bleeding from the hemorrhoids. The patient has not noticed anymore black tarry stools or bright red blood during his colonoscopy prep last night or today. H&H has improved. Plans for discharge home on a High Fiber diet due to Diverticulosis per GI. (3) Acute on chronic anemia: Code(s): D64.9 - Anemia, unspecified Status: Acute Assessment and Plan: The patient's baseline H&H seems to fluctuate a lot due to his end-stage renal disease. His last hemoglobin was 10.6. On arrival his hemoglobin was 8.8 and hematocrit was 27.5%. Today hemoglobin was 10.5 and hematocrit was 32.2%. Improved. Patient's anemia labs appear to show anemia chronic disease with normal B12 and folic acid levels. Will recheck CBC in 1 week after discharge and have him follow up with PCP. (4) Lightheadedness: Code(s): R42 - Dizziness and giddiness Status: Acute Assessment and Plan: The patient reported feeling lightheaded while sitting up in the chair yesterday. His blood pressure was checked and it was 89/65. Bao hose were ordered as well as normal saline 500 cc fluid bolus. This could be secondary to some dehydration associated with his peritoneal dialysis. This morning the patient reports feeling better without anymore episodes of lightheadedness or dizziness. The patient had just recently gotten back from his colonoscopy and was still slightly drowsy. After eating lunch and getting up to move around he is still feeling well and orthostatics were normal and he was asymptomatic with position changes. (5) Supratherapeutic INR: Code(s): R79.1 - Abnormal coagulation profile Status: Acute Assessment and Plan: He has been on warfarin since December 2018, and he has not checked his INR the last 3 weeks the patient states. He is supposed to be getting an INR machine at his house so he can check it more frequently if necessary. Has been supratherapeutic several times since then. The patient's INR on arrival was 6.6. He received vitamin K as well as FFP on 06/10/2019. Today the patient's INR was 1.6. Cardiology evaluated the patient and feels at this time he should not be on anticoagulation. They would like for him to follow up with 07/04/[address] Cm and further can be discussed at that time.
--- NOTE | 2019-06-13 20:08 | PC.NURSE ---
This patient, Yordy Drake, was transferred to [facility] 06/13/19 at 2007. Personal belongings sent with patient. Belongings list checked and signed with receiving [ ]. Report given to KELLEN DRUMMOND BY ELDA DRUMMOND.[ ]. Appropriate documentation sent with patient.
[2019-06-13] MEDS: CLONAZEPAM 0.5 MG TAB PO (20:56)
[2019-06-14] VITALS (18 sets, daily range): BP systolic 79–107; BP diastolic 47–69; PULSE 106–114; RESP 16–20; TEMP 36.2–36.7; O2SAT 98–100
[2019-06-14] MEDS: SACCHAROMYCES BOULARDII 250 MG CAPSULE PO ×3 (00:13→20:35)
[2019-06-14] MEDS: LEVOTHYROXINE SODIUM 75 MCG TABLET PO (05:52)
[2019-06-14] MEDS: CENTRAL LINE FLUSH 10 ML IV PUSH ×3 (05:53→20:36)
[2019-06-14 06:14] LABS: Basophils Absolute Auto 0.1 K/mm3 (0.0-0.1); Basophils Percent Auto 0.9 % (0.2-1.2); Eosinophils Absolute Auto 0.2 K/mm3 (0-0.3); Hematocrit 31.1 % (42.0-52.0); Hemoglobin 9.9 g/dL (14.0-18.0); Immature Granulocyte Absolute 0.05 K/mm3 (0.00-0.031); Immature Granulocyte Percent A 0.6 % (0-0.5); Lymphocytes Absolute Auto 1.37 K/mm3 (0.9-3.2); Lymphocytes Percent Auto 17.1 % (18.3-44.2); Mean Corpuscular HGB Conc 31.8 g/dl (32-36); Mean Corpuscular Hemoglobin 33.1 pg (26-34); Mean Platelet Volume 11.1 fl (7.4-10.4); Monocytes Absolute Auto 1.2 K/mm3 (0.1-0.6); Monocytes Percent Auto 15.1 % (2.6-8.5); Neutrophils Absolute Auto 5.2 K/mm3 (1.3-6.7); Neutrophils Percent Auto 64.3 % (45.5-73.1); Nucleated Red Blood Cells Perc 0.2 % (0.0-0.2); Platelet Count Result 155 k/mm3 (150-375); Red Blood Count 2.99 M/mm3 (4.6-6.20); Red Cell Distribution Width 17.4 % (11.5-14.5)
[2019-06-14 06:28] LABS: Albumin Level 2.8 g/dL (3.5-5.1); Blood Urea Nitrogen 44 mg/dL (9-20); Calcium 8.1 mg/dL (8.4-10.2); Carbon Dioxide 23 mmol/L (22-30); Chloride 95 mmol/L (98-107); Estimated CRCL calculation 6 ml/min; Estimated Glomerular Filt Rate 5; Glucose 153 mg/dL (75-110); Phosphorus 5.1 mg/dL (2.5-4.5); Potassium 3.6 mmol/L (3.4-5.0); Sodium 132 mmol/L (137-145)
[2019-06-14 06:46] LABS: INR 1.7; Prothrombin Time 19.5 Seconds (11.1-14.7)
--- NOTE | 2019-06-14 07:35 | PM.PNNEP ---
Progress Note: A&P Assessment and Plan (1) End stage renal disease: Code(s): N18.6 - End stage renal disease Status: Chronic Assessment and Plan: continue CCPD treatments nightly Doing well now. Fluid clear and no alarms (2) Acute on chronic anemia: Code(s): D64.9 - Anemia, unspecified Status: Acute Assessment and Plan: due ESRD + acute blood loss Getting blood transfusions as needed. He is also getting Epogen. (3) Supratherapeutic INR: Code(s): R79.1 - Abnormal coagulation profile Status: Acute Assessment and Plan: Cardiology following as well and will determine when to put him back on anticoagulants, probably as an outpatient if at all. (4) Ischemic cardiomyopathy: Code(s): I25.5 - Ischemic cardiomyopathy Status: Acute Assessment and Plan: appears compensated at this time EF is very low. continue ultrafiltration with CCPD to maintain euvolemia (5) Essential hypertension: Code(s): I10 - Essential (primary) hypertension Status: Acute Assessment and Plan: not really an issue Additional Plan Subjective Date/time seen: 06/14/19 07:35 Interval history: Yordy is a very pleasant gentleman who is here for GI bleeding. He has end-stage dialysis. No more bleeding. He feels good. He is on peritoneal dialysis. He is tolerating this well. Fluid is clear. No alarms overnight. He was seen at 6:40 a.m. Review of Systems Cardiovascular: Cardiovascular: Reports no additional cardiovascular complaints Respiratory: Respiratory: Reports no additional respiratory complaints Gastrointestinal: Gastrointestinal: Reports no additional gastrointestinal complaints Genitourinary: Genitourinary: Reports no additional male genitourinary complaints Exam Narrative: Exam Narrative: General: elderly male in NAD Heart: normal S1 and S2; no rub or gallop Lungs: clear bilaterally Abdomen: soft, nontender, nondistended, positive bowel sounds Extremities:no edema Skin: no rash or subcu nodules Objective Data Vital Signs Vital Signs: Vital Signs - 24 hr 06/13/19 08:00 06/13/19 09:12 06/13/19 10:06 Temperature 37.2 C 36.8 C Pulse Rate 116 H 114 H 114 H Respiratory Rate 20 16 Blood Pressure 90/62 L 97/70 L Pulse Oximetry 100 100 06/13/19 11:13 06/13/19 11:23 06/13/19 11:32 Temperature Pulse Rate 110 H 111 H 111 H Respiratory Rate 26 H 23 H 21 H Blood Pressure 88/57 L 89/58 L 90/59 L Pulse Oximetry 99 99 97 06/13/19 11:42 06/13/19 11:51 06/13/19 12:24 Temperature 37.1 C Pulse Rate 111 H 111 H 106 H Respiratory Rate 17 17 14 Blood Pressure 83/52 L 92/64 L 95/67 L Pulse Oximetry 97 99 100 06/13/19 14:00 06/13/19 16:00 06/13/19 18:00 Temperature 36.7 C Pulse Rate 114 H 112 H 113 H Respiratory Rate 20 Blood Pressure 98/67 L Pulse Oximetry 97 06/13/19 20:57 06/13/19 21:25 06/13/19 22:00 Temperature 36.7 C 37.1 C Pulse Rate 113 H 112 H 113 H Respiratory Rate 20 20 Blood Pressure 98/67 L 105/68 Pulse Oximetry 100 06/14/19 00:00 06/14/19 04:00 Temperature Pulse Rate 111 H 111 H Respiratory Rate Blood Pressure Pulse Oximetry Intake/Output Intake/Output: Intake & Output 06/11/19 06/12/19 06/13/19 06/14/19 23:59 23:59 23:59 23:59 Intake Total 761 903 5162 Output Total 1430 Balance -645 197 1806 Meds/Results Medications: Active Medications Generic Name Dose Route Start Last Admin Trade Name Freq PRN Reason Stop Dose Admin Acetaminophen 650 mg 06/09/19 22:39 06/11/19 19:45 Tylenol Tablet PO 650 mg Q4H PRN Administration Headache Clonazepam 0.5 mg 06/10/19 21:00 06/13/19 20:56 Klonopin Tablet PO 0.5 mg HS XUAN Administration Epoetin Rubén 10,000 units 06/13/19 09:00 06/13/19 09:23 Epogen SUB-Q 10,000 units Q14D XUAN Administration Epoetin Rubén 10,000 units
--- NOTE | 2019-06-14 08:03 | WPDGIPROGNO ---
Progress Note: A&P Additional Plan Patient alert and comfortable this morning. No additional bleeding reported. Denies abdominal pain. Tolerating diet. Physical exam reveals patient to be alert. Vital signs stable. HEENT exam unremarkable. Abdomen is soft and nontender. Labs reveal hemoglobin 9.9, hematocrit 31.1, MCV 104 stable at present. Impression 1. Occult blood in stool. Likely related to internal hemorrhoids. 2. Anemia. Likely multifactorial. Major component related to chronic kidney disease. 3. End-stage renal disease. Patient on peritoneal dialysis. Renal services following. Plan no additional GI workup advised at this time. High-fiber diet is suggested given his hemorrhoids. Further disposition per renal service. Continue to monitor hemoglobin intermittently as an outpatient. Subjective Date/time seen: 06/14/19 08:03 Objective Data Vital Signs Vital Signs: Vital Signs - 24 hr 06/13/19 09:12 06/13/19 10:06 06/13/19 11:13 Temperature 36.8 C Pulse Rate 114 H 114 H 110 H Respiratory Rate 16 26 H Blood Pressure 97/70 L 88/57 L Pulse Oximetry 100 99 06/13/19 11:23 06/13/19 11:32 06/13/19 11:42 Temperature Pulse Rate 111 H 111 H 111 H Respiratory Rate 23 H 21 H 17 Blood Pressure 89/58 L 90/59 L 83/52 L Pulse Oximetry 99 97 97 06/13/19 11:51 06/13/19 12:24 06/13/19 14:00 Temperature 37.1 C Pulse Rate 111 H 106 H 114 H Respiratory Rate 17 14 Blood Pressure 92/64 L 95/67 L Pulse Oximetry 99 100 06/13/19 16:00 06/13/19 18:00 06/13/19 20:57 Temperature 36.7 C Pulse Rate 112 H 113 H 113 H Respiratory Rate 20 Blood Pressure 98/67 L Pulse Oximetry 97 06/13/19 21:25 06/13/19 22:00 06/14/19 00:00 Temperature 36.7 C 37.1 C Pulse Rate 112 H 113 H 111 H Respiratory Rate 20 20 Blood Pressure 98/67 L 105/68 Pulse Oximetry 100 06/14/19 04:00 06/14/19 06:00 Temperature 36.7 C Pulse Rate 111 H 111 H Respiratory Rate 20 Blood Pressure 107/47 L Pulse Oximetry 98 Intake/Output Intake/Output: Intake & Output 06/11/19 06/12/19 06/13/19 06/14/19 23:59 23:59 23:59 23:59 Intake Total 988 641 4580 300 Output Total 1430 Balance -581 870 7161 300 Meds/Results Medications: Active Medications Generic Name Dose Route Start Last Admin Trade Name Freq PRN Reason Stop Dose Admin Acetaminophen 650 mg 06/09/19 22:39 06/11/19 19:45 Tylenol Tablet PO 650 mg Q4H PRN Administration Headache Clonazepam 0.5 mg 06/10/19 21:00 06/13/19 20:56 Klonopin Tablet PO 0.5 mg HS XUAN Administration Epoetin Rubén 10,000 units 06/13/19 09:00 06/13/19 09:23 Epogen SUB-Q 10,000 units Q14D XUAN Administration Epoetin Rubén 10,000 units 06/11/19 09:00 06/11/19 13:42 Epogen SUB-Q 10,000 units TuThSa@0900 XUAN Administration Guaifenesin 600 mg 06/09/19 23:10 06/13/19 20:56 Mucinex 12 Hr Tab PO 600 mg Q12HR XUAN Administration Heparin Sodium (Beef Lung) 50 units 06/10/19 09:00 06/13/19 09:23 Heparin Flush 50 Units/5 Ml IV PUSH 50 units QAM XUAN Administration Heparin Sodium (Beef Lung) 50 units 06/09/19 18:49 Heparin Flush 50 Units/5 Ml IV PUSH PRN PRN after intermittent infusion Heparin Sodium (Beef Lung) 50 units 06/09/19 18:49 06/14/19 05:53 Heparin Flush 50 Units/5 Ml IV PUSH 50 units PRN PRN Administration after blood draws Heparin Sodium (Porcine) 500 units 06/09/19 18:49 Heparin Sod Flush 100 Units/Ml IV PUSH PRN PRN see comments below Levothyroxine Sodium 75 mcg 06/10/19 06:30 06/14/19 05:52 Synthroid PO 75 mcg DAILY@0630 XUAN Administration Magnesium Oxide 400 mg 06/10/19 09:00 06/13/19 09:12 Mag-Ox PO 400 mg QAM XUAN Administration Metoprolol Tartrate 25 mg 06/12/19 21:00 06/13/19 20:57 Lopressor PO 25 mg Q12HR XUAN Administration Pantoprazole Sodium 40 mg 06/09/19 21:00 06/13/19 20:57 Prot
[2019-06-14] MEDS: PANTOPRAZOLE SODIUM IV 40 MG VIAL IV PUSH ×2 (08:28→20:33)
[2019-06-14] MEDS: MAGNESIUM OXIDE 400 MG TABLET PO (08:29)
[2019-06-14] MEDS: METOPROLOL TARTRATE 25 MG TABLET PO ×2 (08:29→20:35)
[2019-06-14] MEDS: VITAMIN B CMPLX/VIT C/FOLIC AC 1 CAPSULE 1 CAP PO (08:29)
[2019-06-14] MEDS: SERTRALINE HCL 50 MG TABLET PO (08:29)
[2019-06-14] MEDS: PRAVASTATIN SODIUM 20 MG TABLET 80 MG PO (08:29)
[2019-06-14] MEDS: EPOETIN ALFA 10,000 UNITS/ML VIAL 10000 UNITS SUB-Q (12:12)
--- NOTE | 2019-06-14 12:14 | PM.IMPN ---
Progress Note: A&P Assessment and Plan (1) Generalized weakness: Code(s): R53.1 - Weakness Status: Acute Assessment and Plan: The patient reports having generalized weakness, fatigue over the last few days. PT/OT evaluated patient and felt patient would benefit from SNF, although patient is declining this at the moment given recent COVID pandemic. has set up HH PT/OT. Will continue with PT/OT at this time Likely home with HH once appropriate (2) GI bleed: Qualifiers: GI bleed type/associated pathology: unspecified gastrointestinal hemorrhage type Qualified Code(s): K92.2 - Gastrointestinal hemorrhage, unspecified Code(s): K92.2 - Gastrointestinal hemorrhage, unspecified Status: Acute Assessment and Plan: IT appears patient was transfused 1 u pRBC in the ER. Given presentation and reports of dark stools and supratherapeutic INR, concerning for GI loss. IFOB results were positive for blood. Dr. Trejo evaluated and performed EGD 06/11/[address] Trejo did perform balloon dilation of his esophagus due to symptoms of dysphagia. Dr. Trejo performed a colonoscopy earlier in stay which showed diverticulosis and large internal hemorrhoids with a stigmata of bleeding from the hemorrhoids. Patient denies BRBPR or melena. H&H relatively stable at this moment. Monitor H&H Plans for discharge home on a High Fiber diet due to diverticulosis per GI recommendations (3) Acute on chronic anemia: Code(s): D64.9 - Anemia, unspecified Status: Acute Assessment and Plan: Hgb today was 9.9, relatively stable. Patient's anemia labs appear to show anemia chronic disease with normal B12 and folic acid levels. Will recheck CBC in 1 week after discharge and have him follow up with PCP. Continue to monitor during hospital course Transfuse as needed (4) Ischemic cardiomyopathy: Code(s): I25.5 - Ischemic cardiomyopathy Status: Acute Assessment and Plan: Echo read today shows EF of 10% estimated; worsened from 12/2018 Cardiology and appreciate recommendations Will await further recommendations from Cardiology Patient has appointment in 06/2019 Given worsened EF, overall worsened chronic conditions, and frequent recent hospital stays, discussions may need to occur about how aggressive future treatment plans should be. (5) Lightheadedness: Code(s): R42 - Dizziness and giddiness Status: Acute Assessment and Plan: This could be secondary to some dehydration associated with his peritoneal dialysis or from other chronic issues vs medication induced. Patient feeling better today without lightheadedness. Monitor during stay (6) Supratherapeutic INR: Code(s): R79.1 - Abnormal coagulation profile Status: Acute Assessment and Plan: INR now to 1.7 today. Cardiology following and appreciate recommendations. Warfarin has been d/c by cardiology. Echo performed yesterday afternoon to evaluate for previous clot; results today showing worsened EF to 10%. No clot noted. Will continue to stop warfarin per Cardiology recommendations They would like for him to follow up with 07/04/[address] Cm and further can be discussed at that time. Will await further recommendations from Cardiology (7) Paroxysmal atrial fibrillation: Code(s): I48.0 - Paroxysmal atrial fibrillation Status: Acute Assessment and Plan: Cardiology following and appreciate recommendation. Patient tachycardic today; telemetry shows episodes of vtach; patient asymptomatic; tachycardia also noted. Continue metoprolol 25 mg BID per cardiology zack
--- NOTE | 2019-06-14 14:37 | PM.PNCARD ---
Progress Note: A&P Assessment and Plan (1) Ischemic cardiomyopathy: Code(s): I25.5 - Ischemic cardiomyopathy Status: Acute Assessment and Plan: Patient has had a decline in left ventricular function, EF now 10%, multifactorial. He appears to have an atrial tachycardia which may be the culprit. Moderate mitral regurgitation is contributing Doubt significant aortic stenosis Unable to titrate CHF medications any further because of low blood pressure. However, correlate or may be helpful since it does not lower blood pressure Asked the patient to consider how much he wants done as far as procedures andaggressive care or is he more interested in ?letting nature take its course.? He will think about it. (2) Atrial tachycardia: Code(s): I47.1 - Supraventricular tachycardia Status: Acute Assessment and Plan: Patient appears to have an atypical slow atrial flutter or perhaps an atrial tachycardia with a sustained ventricular rate of about 114. Would like to try patient on IV amiodarone overnight to see if this would convert him if an SVT, and if atrial flutter at least slow it down. If not, I will consider a dose of IV Adenocard to see what this rhythm is and if an SVT it may convert. (3) Hypotension: Code(s): I95.9 - Hypotension, unspecified Status: Acute Assessment and Plan: Chronic hypotension limits therapy for cardiomyopathy (4) Mitral regurgitation: Code(s): I34.0 - Nonrheumatic mitral (valve) insufficiency Status: Acute Assessment and Plan: Moderate mitral regurgitation noted. Can consider mitral valve clip in the future. (5) Nonsustained ventricular tachycardia: Code(s): I47.2 - Ventricular tachycardia Status: Acute Assessment and Plan: Nonsustained V-tach noted. Follow electrolytes Has an ICD in place. (6) S/P ICD (internal cardiac defibrillator) procedure: Code(s): Z95.810 - Presence of automatic (implantable) cardiac defibrillator Status: Acute Assessment and Plan: To my knowledge has not had a defibrillation. (7) GI bleed: Qualifiers: GI bleed type/associated pathology: unspecified gastrointestinal hemorrhage type Qualified Code(s): K92.2 - Gastrointestinal hemorrhage, unspecified Code(s): K92.2 - Gastrointestinal hemorrhage, unspecified Status: Acute Assessment and Plan: Has had to go off anticoagulation. If in an atrial flutter, then perhaps we can reanticoagulate in a couple weeks with Eliquis Otherwise, will consider resuming clopidogrel which the patient took in the past after a couple weeks of GI healing. Subjective Date/time seen: 06/14/19 14:37 Interval history: Follow-up visit for 79-year-old gentleman with complex history of coronary artery disease valvular heart disease and atrial fibrillation. Patient was admitted last week because of his clinical symptoms and problems related to GI bleeding, melanotic stool and drop in hemoglobin. EGD and Thursday apparently was negative. Colonoscopy showed large internal hemorrhoids with evidence of recent bleeding. Coumadin has been discontinued Date of service: 06/14/2019 Patient's echocardiogram showed ejection fraction is worsened, down to 10%. No sign of left ventricular thrombus. He complains of feeling weak and tired, not much shortness of breath. No further bleeding. Telemetry on my personal review shows a flat heart rate, about 114, whether sleeping or awake suggestive of an atrial arrhythmia. Also some nonsustained ventricular tachycardia up to 14 beats. Review of Systems Constitutional: Constitutional: Reports fatigue, Reports lethargy and Reports weakne
--- NOTE | 2019-06-14 15:52 | PC.NURSE ---
This patient, Yordy Drake, was transferred to IMU on 06/14/19 at 1552. Personal belongings sent with patient. Belongings list checked and signed with receiving 207. Report given to HODA Wolfe. Appropriate documentation sent with patient.
[2019-06-14] MEDS: AMIODARONE 150 MG/D5W 100 ML 150 MG/100 ML BAG 600 MG IV CONT (16:33)
[2019-06-14] MEDS: SODIUM CHLORIDE 0.9% IV 250 ML IV CONT (17:23)
[2019-06-14] MEDS: AMIODARONE 360 MG/D5W 200 ML 360 MG/200 ML BAG 33.3 MG IV CONT (18:55)
[2019-06-14] MEDS: CLONAZEPAM 0.5 MG TAB PO (20:35)
[2019-06-14] MEDS: AMIODARONE 360 MG/D5W 200 ML 360 MG/200 ML BAG 16.7 MG IV CONT (22:24)
[2019-06-15] VITALS (13 sets, daily range): BP systolic 84–103; BP diastolic 55–63; PULSE 96–107; RESP 16–18; TEMP 35.8–36.2; O2SAT 99–100
[2019-06-15] MEDS: LEVOTHYROXINE SODIUM 75 MCG TABLET PO (05:07)
[2019-06-15] MEDS: CENTRAL LINE FLUSH 10 ML IV PUSH ×2 (05:07→16:18)
[2019-06-15 05:20] LABS: Hematocrit 32.8 % (42.0-52.0); Hemoglobin 10.7 g/dL (14.0-18.0); Mean Corpuscular HGB Conc 32.6 g/dl (32-36); Mean Corpuscular Hemoglobin 33.5 pg (26-34); Mean Corpuscular Volume 102.8 fl (80-100); Mean Platelet Volume 10.9 fl (7.4-10.4); Platelet Count Result 143 k/mm3 (150-375); Red Blood Count 3.19 M/mm3 (4.6-6.20); Red Cell Distribution Width 17.7 % (11.5-14.5); White Blood Count 8.2 K/mm3 (4.5-10.0)
[2019-06-15 05:26] LABS: Albumin Level 2.7 g/dL (3.5-5.1); Blood Urea Nitrogen 45 mg/dL (9-20); Calcium 7.8 mg/dL (8.4-10.2); Carbon Dioxide 23 mmol/L (22-30); Chloride 94 mmol/L (98-107); Estimated CRCL calculation 6 ml/min; Estimated Glomerular Filt Rate 6; Glucose 178 mg/dL (75-110); Magnesium 1.8 mg/dL (1.6-2.3); Phosphorus 4.2 mg/dL (2.5-4.5); Potassium 3.1 mmol/L (3.4-5.0); Sodium 132 mmol/L (137-145)
[2019-06-15 05:33] LABS: INR 1.5
--- NOTE | 2019-06-15 08:38 | PM.PNNEP ---
Progress Note: A&P Assessment and Plan (1) End stage renal disease: Code(s): N18.6 - End stage renal disease Status: Chronic Assessment and Plan: continue CCPD treatments nightly Doing well now. Fluid clear and no alarms Volume status looks okay. Will continue current therapy. (2) Acute on chronic anemia: Code(s): D64.9 - Anemia, unspecified Status: Acute Assessment and Plan: due ESRD + acute blood loss Getting blood transfusions as needed. Hemoglobin is improved to 10.7. He is also getting Epogen. (3) Supratherapeutic INR: Code(s): R79.1 - Abnormal coagulation profile Status: Acute Assessment and Plan: Cardiology following as well and will determine when to put him back on anticoagulants, probably as an outpatient if at all. Echo shows a terribly EF of only 10%. (4) Ischemic cardiomyopathy: Code(s): I25.5 - Ischemic cardiomyopathy Status: Acute Assessment and Plan: appears compensated at this time EF is very low. continue ultrafiltration with CCPD to maintain euvolemia He seems euvolemic currently. His blood pressure is somewhat soft from his cardiomyopathy so we are not able to remove a whole lot of fluid. Since he is not eating very well that is not necessary now. We can adjust as needed as an outpatient once he starts eating better. Because of his poor appetite am going to dialyze his diet to a 2 g sodium diet. (5) Essential hypertension: Code(s): I10 - Essential (primary) hypertension Status: Acute Assessment and Plan: not really an issue and probably will never be with this ejection fraction. Additional Plan Subjective Date/time seen: 06/15/19 08:38 Interval history: Yordy is a very pleasant gentleman who is here for GI bleeding. He has end-stage dialysis. No more bleeding. He feels fine. He is upset about his diet. He is not eating very well. Review of Systems Cardiovascular: Cardiovascular: Reports no additional cardiovascular complaints Respiratory: Respiratory: Reports no additional respiratory complaints Gastrointestinal: Gastrointestinal: Reports no additional gastrointestinal complaints Genitourinary: Genitourinary: Reports no additional male genitourinary complaints Exam Narrative: Exam Narrative: General: elderly male in NAD Heart: normal S1 and S2; no rub or gallop Lungs: clear to auscultation Abdomen: soft, nontender, nondistended, positive bowel sounds Extremities:no edema Skin: no rash Objective Data Vital Signs Vital Signs: Vital Signs - 24 hr 06/14/19 08:55 06/14/19 12:00 06/14/19 13:40 Temperature 36.6 C 36.2 C L Pulse Rate 110 H 113 H 114 H Respiratory Rate 20 18 Blood Pressure 107/47 L 93/59 L Pulse Oximetry 100 06/14/19 16:00 06/14/19 16:31 06/14/19 16:50 Temperature 36.4 C L Pulse Rate 106 H 113 H 108 H Respiratory Rate 20 Blood Pressure 90/69 L 79/54 L Pulse Oximetry 100 06/14/19 17:30 06/14/19 18:00 06/14/19 18:45 Temperature Pulse Rate 107 H 114 H 111 H Respiratory Rate Blood Pressure 79/56 L 86/62 L 99/65 L Pulse Oximetry 06/14/19 19:52 06/14/19 20:35 06/14/19 21:55 Temperature 36.4 C L 36.4 C L Pulse Rate 111 H 111 H 111 H Respiratory Rate 16 16 Blood Pressure 100/63 100/63 Pulse Oximetry 100 06/14/19 22:00 06/15/19 00:00 06/15/19 02:00 Temperature 35.8 C L Pulse Rate 107 H 104 H 104 H Respiratory Rate 18 Blood Pressure 103/58 L Pulse Oximetry 100 06/15/19 03:41 06/15/19 04:00 06/15/19 06:00 Temperature 36.2 C L Pulse Rate 103 H 103 H 96 Respiratory Rate 18 Blood Pressure 97/60 L Pulse Oximetry 99 06/15/19 07:04 Temperature 36.2 C L Pulse Rate 103 H Respiratory Rate 18 Blood Pressure 97/60 L Pulse Oximetry Intake/Output Intake/Output: Intake & Output 06/12/19 06/13/19 06/14/19 06/15/19 23:59 23:59 23:59 23:59
--- NOTE | 2019-06-15 08:43 | PM.PNCARD ---
Progress Note: A&P Assessment and Plan (1) Ischemic cardiomyopathy: Code(s): I25.5 - Ischemic cardiomyopathy Status: Acute Assessment and Plan: Patient has had a decline in left ventricular function, EF now 10%, multifactorial. He appears to have an atrial flutter RVR which may be the culprit. Moderate mitral regurgitation is contributing Doubt significant aortic stenosis as he has good valve excursion on Echo Unable to titrate CHF medications any further because of low blood pressure. However, Corlanor may be helpful since it does not lower blood pressure. Started low dose 2.5 mg BID. (Dose not defined in dialysis pts. Metabolized primarily by liver.) (2) Atrial tachycardia: Code(s): I47.1 - Supraventricular tachycardia Status: Acute Assessment and Plan: Patient appears to have an atypical slow atrial flutter with improvement of HR w/ IV amiodarone. Will switch to po amio 200 mg BID. Out of bed today, poss home today? Pt agrees to call us in a week w/ HR and BP. If he gets too slow, he does have the ICD which can pace. (Most are set for a back-up of 40 BPM.) Has a FU appt w/ us in June. (3) Hypotension: Code(s): I95.9 - Hypotension, unspecified Status: Acute Assessment and Plan: Chronic hypotension limits therapy for cardiomyopathy (4) Mitral regurgitation: Code(s): I34.0 - Nonrheumatic mitral (valve) insufficiency Status: Acute Assessment and Plan: Moderate mitral regurgitation noted. Can consider mitral valve clip in the future. (5) Nonsustained ventricular tachycardia: Code(s): I47.2 - Ventricular tachycardia Status: Acute Assessment and Plan: Nonsustained V-tach noted. Follow electrolytes; K+ a little low today but usually good. Has an ICD in place. (6) S/P ICD (internal cardiac defibrillator) procedure: Code(s): Z95.810 - Presence of automatic (implantable) cardiac defibrillator Status: Acute Assessment and Plan: To my knowledge has not had a defibrillation. (7) GI bleed: Qualifiers: GI bleed type/associated pathology: unspecified gastrointestinal hemorrhage type Qualified Code(s): K92.2 - Gastrointestinal hemorrhage, unspecified Code(s): K92.2 - Gastrointestinal hemorrhage, unspecified Status: Acute Assessment and Plan: Has had to go off anticoagulation. INR 6.6 on admission. Had not rec'd his home INR monitor. Since in atrial flutter, we need to consider reanticoagulation a couple weeks perhaps w/ with Eliquis. If we cont w/ warfarin, needs more freq INR monitoring. (8) Flank pain: Code(s): R10.9 - Unspecified abdominal pain Status: Acute Assessment and Plan: Suspect musculoskeletal. Subjective Date/time seen: 06/15/19 08:43 Interval history: Follow-up visit for 79-year-old gentleman with complex history of coronary artery disease valvular heart disease and atrial fibrillation. Patient was admitted last week because of his clinical symptoms and problems related to GI bleeding, melanotic stool and drop in hemoglobin. EGD and Thursday apparently was negative. Colonoscopy showed large internal hemorrhoids with evidence of recent bleeding. Coumadin has been discontinued 06/14/2019 Visit: Patient's echocardiogram showed ejection fraction is worsened, down to 10%. No sign of left ventricular thrombus. He complains of feeling weak and tired, not much shortness of breath. No further bleeding. Telemetry on my personal review shows a flat heart rate, about 114, whether sleeping or awake suggestive of an atrial arrhythmia. Also some nonsustained ventricular tach
[2019-06-15] MEDS: POTASSIUM CHLORIDE 20 MEQ TABLET PO (08:52)
[2019-06-15] MEDS: SACCHAROMYCES BOULARDII 250 MG CAPSULE PO (08:55)
[2019-06-15] MEDS: PRAVASTATIN SODIUM 20 MG TABLET 80 MG PO (08:55)
[2019-06-15] MEDS: SERTRALINE HCL 50 MG TABLET PO (08:56)
[2019-06-15] MEDS: PANTOPRAZOLE SODIUM IV 40 MG VIAL IV PUSH (08:56)
[2019-06-15] MEDS: VITAMIN B CMPLX/VIT C/FOLIC AC 1 CAPSULE 1 CAP PO (08:56)
[2019-06-15] MEDS: MAGNESIUM OXIDE 400 MG TABLET PO (09:01)
[2019-06-15] MEDS: METOPROLOL TARTRATE 25 MG TABLET PO (09:02)
[2019-06-15] MEDS: AMIODARONE HCL 200 MG TABLET PO (10:27)
--- NOTE | 2019-06-15 13:09 | PM.DS ---
DS: Diagnosis Admitting Diagnosis Admitting Diagnosis: End stage renal disease Discharge Diagnosis (1) Generalized weakness: Code(s): R53.1 - Weakness Status: Acute Assessment and Plan: The patient reports having generalized weakness, fatigue over the last few days. PT/OT evaluated patient and felt patient would benefit from SNF, although patient is declining this at the moment given recent COVID pandemic. has set up HH PT/OT. Discharge today with HH Follow up with PCP (2) GI bleed: Qualifiers: GI bleed type/associated pathology: unspecified gastrointestinal hemorrhage type Qualified Code(s): K92.2 - Gastrointestinal hemorrhage, unspecified Code(s): K92.2 - Gastrointestinal hemorrhage, unspecified Status: Acute Assessment and Plan: It appears patient was transfused 1 u pRBC in the ER. Given presentation and reports of dark stools and supratherapeutic INR, initially concerning for GI loss. IFOB results were positive for blood. Dr. Trejo evaluated and performed EGD 06/11/[address] Trejo did perform balloon dilation of his esophagus due to symptoms of dysphagia. Dr. Trejo also performed a colonoscopy earlier in stay which showed diverticulosis and large internal hemorrhoids with a stigmata of bleeding from the hemorrhoids. Patient denies BRBPR or melena. H&H relatively stable at this moment. Follow up with outpatient lab work Plans for discharge home on a High Fiber and renal diet due to diverticulosis per GI recommendations (3) Acute on chronic anemia: Code(s): D64.9 - Anemia, unspecified Status: Acute Assessment and Plan: Hgb today was 10.7, relatively stable. Patient's anemia labs appear to show anemia chronic disease with normal B12 and folic acid levels. Will recheck CBC in 1 week after discharge and have him follow up with PCP. (4) Ischemic cardiomyopathy: Code(s): I25.5 - Ischemic cardiomyopathy Status: Acute Assessment and Plan: Echo read earlier in stay shows EF of 10% estimated; worsened from 12/2018 Cardiology following and appreciate recommendations Patient to be discharged on amiodarone per Cards rec Patient has appointment in 06/2019 Given worsened EF, overall worsened chronic conditions, and frequent recent hospital stays, discussions may need to occur about how aggressive future treatment plans should be. 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 Patient and son in agreement with discussing future goals with PCP at some point in future. (5) Lightheadedness: Code(s): R42 - Dizziness and giddiness Status: Acute Assessment and Plan: This could be secondary to some dehydration associated with his peritoneal dialysis or from other chronic issues vs medication induced. Patient feeling okay today without lightheadedness. Monitor during stay (6) Supratherapeutic INR: Code(s): R79.1 - Abnormal coagulation profile Status: Resolved Assessment and Plan: INR now to 1.5 today. Cardiology following and appreciate recommendations. Warfarin has been d/c by cardiology. Echo performed earlier in stay to evaluate for previous clot; results today showing worsened EF to 10%. No clot noted. Stop warfarin per Cardiology recommendations They would like for him to follow up in 06/[address] Cm and further a/c can be discussed at that time. (7) Paroxysmal atrial fibrillation: Code(s): I48.0 - Paroxysmal atrial fibrillation Status: Acute Assessmen
--- NOTE | 2019-06-15 14:57 | PCPTNOTE ---
Pt refused gait during A.M. P.T. treatment. Patient declined to to feeling fatigued following seated LE exercises. Patient did ambulate to and from the bathroom prior to P.T. entering room. Patient educated on the importance of increasing his activity/ mobility. Pt continued to decline gait.
--- NOTE | 2019-06-15 16:46 | PC.NURSE ---
Discharged patient to home with son at 16:39 with all belongings
== END 2019-06-15 16:39 | disposition home health service (06) | DRG 393 ==
LOC: ANHED 17:00 → ANHIMU 17:21 → ANH2MED 06-14 06:57 → ANHIMU 06-15 13:31 → ANH2MED 06-16 15:44 → ANHIMU 06-16 15:44
PROVIDERS: Family Medicine; Internal Medicine; Internal Medicine Gastroenterology; Internal Medicine Nephrology; Physician Assistant; Admitting Provider Family Medicine; Emergency Provider Emergency Medicine; PCP Family Medicine; Visit Provider Family Medicine
PROC: 0DJ08ZZ Inspection of Upper Intestinal Tract, Via Natural or Artificial Opening Endoscopic (ICD-10-PCS; CPT 43235; principal; 2019-06-11 08:00)
PROC: 0DJD8ZZ Inspection of Lower Intestinal Tract, Via Natural or Artificial Opening Endoscopic (ICD-10-PCS; CPT 45378; principal; 2019-06-13 10:00)
DX: K64.8 Other hemorrhoids (principal); N18.6 End stage renal disease; I13.2 Hypertensive heart and chronic kidney disease with heart failure and with stage 5 chronic kidney disease, or end stage renal disease; E87.1 Hypo-osmolality and hyponatremia; I50.42 Chronic combined systolic (congestive) and diastolic (congestive) heart failure; I47.1 Supraventricular tachycardia; I47.2 Ventricular tachycardia; D62 Acute posthemorrhagic anemia; D63.1 Anemia in chronic kidney disease; I95.89 Other hypotension; E11.22 Type 2 diabetes mellitus with diabetic chronic kidney disease; Z99.2 Dependence on renal dialysis; R13.10 Dysphagia, unspecified; K21.9 Gastro-esophageal reflux disease without esophagitis; K57.30 Diverticulosis of large intestine without perforation or abscess without bleeding; R79.1 Abnormal coagulation profile; I48.0 Paroxysmal atrial fibrillation; R53.1 Weakness; I34.0 Nonrheumatic mitral (valve) insufficiency; R42 Dizziness and giddiness; E86.0 Dehydration; I44.7 Left bundle-branch block, unspecified; I25.5 Ischemic cardiomyopathy; I25.10 Atherosclerotic heart disease of native coronary artery without angina pectoris; E78.5 Hyperlipidemia, unspecified; E03.9 Hypothyroidism, unspecified; R10.9 Unspecified abdominal pain; I25.2 Old myocardial infarction; Z79.01 Long term (current) use of anticoagulants; Z79.899 Other long term (current) drug therapy; Z85.72 Personal history of non-Hodgkin lymphomas; Z86.010 Personal history of colon polyps; Z86.73 Personal history of transient ischemic attack (TIA), and cerebral infarction without residual deficits; Z86.79 Personal history of other diseases of the circulatory system; Z95.1 Presence of aortocoronary bypass graft; Z95.5 Presence of coronary angioplasty implant and graft; Z95.810 Presence of automatic (implantable) cardiac defibrillator; Z91.14 Patient's other noncompliance with medication regimen
CPT/HCPCS: 36415; 36430; 80048; 80053; 80069; 82274; 82607; 82728; 82746; 83540; 83550; 83735; 84466; 85014; 85018; 85025; 85027; 85610; 85730; 86850; 86900; 86901; 86923; 87340; 90945; 93005; 96361; 96372; 96374; 96376; 97110; 97116; 97161; 97165; 97530; 97535; 99285; A9270; C8929; C9113; G0378; J0282; J1642; J2001; J2370; J2704; J3430; J7040; J7050; J7120; P9016; P9017; Q4081; Q9957

== ENCOUNTER 2019-06-17 11:01 | Emergency (ER) | payer MEDICARE, SELFPAY ==
--- NOTE | ~2019-06-17 | XR_ITS ---
EXAMINATION: XR chest 1V portable DATE: 06/17/2019 11:56 INDICATION: Weakness TECHNIQUE: frontal view of the chest was obtained. COMPARISON: Chest radiograph dated 05/05/2019 FINDINGS: Right internal jugular central venous port catheter with distal tip projecting over the high right at rium. Cardiomegaly. Median sternotomy wires and mediastinal surgical clips are seen, likely from prio r coronary artery bypass grafting. Single lead cardiac pacemaker/AICD with distal tip projecting over the expected location of the right ventricular outflow tract. There are a few peripheral thin linear opacities near the bilateral costophrenic angles which could r epresent atelectasis or early B lines in the setting of mild pulmonary edema. No pleural effusion or pneumothorax. IMPRESSION: 1. Mild peripheral linear opacities at the lung bases which could represent atelectasis and/or mild p ulmonary edema. 2. Cardiomegaly. Reviewed, dictated and finalized at location A. IMPRESSION: 1. Mild peripheral linear opacities at the lung bases which could represent ate lectasis and/or mild pulmonary edema. 2. Cardiomegaly.
[2019-06-17 11:08] VITALS: BP 83/60; PULSE 107; RESP 20; TEMP 36.3; O2SAT 99
--- NOTE | 2019-06-17 11:19 | ECG_ITS ---
Measurements Intervals [place] Rate: 107 P: 266 OR: 138 QRS: -51 QRSD: 165 T: 143 QT: 429 QTc: 573 Interpretive Statements ATRIAL FLUTTER/TACHYCARDIA WITH RAPID VENTRICULAR RESPONSE VENTRICULAR PREMATURE COMPLEX LEFT AXIS DEVIATION LEFT BUNDLE BRANCH BLOCK ABNORMAL ECG Electronically Signed On 06-17-2019 11:44:53 CDT by Julio C Hancock D.O.
[2019-06-17] MEDS: SODIUM CHLORIDE 0.9% IV 500 ML 999 ML IV CONT ×2 (11:46→13:18)
[2019-06-17 11:57] LABS: Basophils Percent Auto 0.5 % (0.2-1.2); Eosinophils Absolute Auto 0.1 K/mm3 (0-0.3); Eosinophils Percent Auto 1.8 % (0-4.4); Hematocrit 33.8 % (42.0-52.0); Hemoglobin 11.2 g/dL (14.0-18.0); Immature Granulocyte Absolute 0.03 K/mm3 (0.00-0.031); Immature Granulocyte Percent A 0.4 % (0-0.5); Lymphocytes Absolute Auto 1.14 K/mm3 (0.9-3.2); Lymphocytes Percent Auto 14.8 % (18.3-44.2); Mean Corpuscular HGB Conc 33.1 g/dl (32-36); Mean Corpuscular Hemoglobin 33.7 pg (26-34); Mean Corpuscular Volume 101.8 fl (80-100); Mean Platelet Volume 11.5 fl (7.4-10.4); Monocytes Absolute Auto 0.8 K/mm3 (0.1-0.6); Monocytes Percent Auto 10.1 % (2.6-8.5); Neutrophils Absolute Auto 5.6 K/mm3 (1.3-6.7); Neutrophils Percent Auto 72.4 % (45.5-73.1); Nucleated Red Blood Cells Perc 0.3 % (0.0-0.2); Platelet Count Result 109 k/mm3 (150-375); Red Blood Count 3.32 M/mm3 (4.6-6.20); Red Cell Distribution Width 18.2 % (11.5-14.5); White Blood Count 7.7 K/mm3 (4.5-10.0)
--- NOTE | 2019-06-17 11:59 | ED.GENADULT ---
HPI - General Adult General Chief complaint: Recheck/Abnormal Lab/Rx <Kunal Mejia PA-C - Last Filed: 06/17/19 16:48> Stated complaint: low BP <MORIAH Fischer Last Filed: 06/17/19 16:48> Time Seen by Provider: 06/17/19 11:26 <MORIAH Fischer Last Filed: 06/17/19 16:48> Source: patient, family and old records reviewed <MORIAH Fischer Last Filed: 06/17/19 16:48> Mode of arrival: ambulatory <MORIAH Fischer Last Filed: 06/17/19 16:48> Limitations: no limitations <MORIAH Fischer Last Filed: 06/17/19 16:48> History of Present Illness HPI narrative: Patient is a 79-year-old male who presents to emergency department for evaluation of weakness and low blood pressure patient was sent home from hospital admission with admitting diagnosis of end-stage renal dialysis was discharged with discharge diagnosis of generalized weakness patient has been having weakness and fatigue and is followed by nephrology cardiology primary care. Home health suggested the patient be sent in for low blood pressure patient has been off of his blood pressure medicine and diuretic per family since his hospital admission patient was also taken off his warfarin and had some light GI bleeding on admission patient had upper and lower endoscopic was found to have hemorrhoids and irritation of the bowels per family. On arrival patient notes feeling dizzy and weak but denies any falls injury trauma dyspnea chest pain abdominal pain recurrent rectal bleeding or melena. Family and patient notes he had peritoneal dialysis last night <MORIAH Fischer Last Filed: 06/17/19 16:48> Related Data Home medications: Home Medications Medication Instructions Recorded Confirmed Epogen 10,000 units SUBCUT MONTHLY 05/05/19 06/09/19 potassium chloride [K-Tab] 30 meq PO DAILY 05/05/19 06/09/19 <MORIAH Fischer Last Filed: 06/17/19 16:48> Allergies/adverse reactions: Allergies Allergy/AdvReac Type Severity Reaction Status Date / Time albuterol Allergy Unknown ,Other Unverified 06/16/19 14:06 cat dander Allergy Unknown Unknown Verified 06/09/19 16:34 cigarette smoke Allergy Unknown Unknown Verified 06/09/19 16:34 simvastatin Allergy Unknown ,irregular Unverified 06/16/19 14:06 heartbeat,,irregular heartbeat Sulfa (Sulfonamide Allergy Unknown Unknown Verified 06/09/19 16:34 Antibiotics) CATS Allergy Unknown Unknown Uncoded 06/16/19 14:06 <Kunal Mejia PA-C - Last Filed: 06/17/19 16:48> Review of Systems Review of Systems: All systems reviewed & are unremarkable except as noted in HPI and below <Kunal Mejia PA-C - Last Filed: 06/17/19 16:48> [facility] Past Medical History Medical History: Medical History Anemia of chronic disease With history of blood transfusion. Patient also receives Epogen. Anxiety Atrial tachycardia Benign prostatic hyperplasia Cerebrovascular accident Without significant deficits. Most recent stroke was in December 2018. Carotid Doppler ultrasounds demonstrated < 50% stenosis in bilateral internal carotid arteries. Echocardiogram did demonstrate probable LV thrombus at the apex for which she is now on warfarin. Chronic gastroesophageal reflux disease Chronic hyponatremia Combined congestive systolic and diastolic heart failure Echocardiogram in December 2018 showed significantly reduced left ventricular systolic function with ejection fraction of 20 to 25%, LV diastolic dysfunction grade 4, inferior wall akinesis, and multiple areas of hypokinesis, as well as probable LV thrombus at the apex. Coronary artery disease With history of VT, status post 4 vessel CABG. Diet-controlled diabetes mellitus End-stage renal disease on peritoneal dialysis Essential hypertension Hyperlipidemia Hypothyroidism Idiopathic chronic gout Ischemic cardiomyopathy Lef
[2019-06-17 12:07] LABS: INR 1.3; Prothrombin Time 15.9 Seconds (11.1-14.7)
[2019-06-17 12:08] LABS: Partial Thromboplastin Time 34.8 SECONDS (22.3-36.8)
[2019-06-17 12:11] LABS: Lactic Acid Reflex 1.8 mmol/L (0.7-2.1)
[2019-06-17 12:12] LABS: Alanine Aminotransferase 339 U/L (4-50); Albumin Level 2.8 g/dL (3.5-5.1); Alkaline Phosphatase 160 U/L (38-126); Aspartate Amino Transferase 106 U/L (17-59); Bilirubin,Total 0.9 mg/dL (0.2-1.3); Blood Urea Nitrogen 49 mg/dL (9-20); CRP 6.4 mg/dL (<1.0); Calcium 7.6 mg/dL (8.4-10.2); Carbon Dioxide 23 mmol/L (22-30); Chloride 93 mmol/L (98-107); Estimated CRCL calculation 6 ml/min; Estimated Glomerular Filt Rate 6; Glucose 123 mg/dL (75-110); Lipase 319 U/L (23-300); Potassium 3.3 mmol/L (3.4-5.0); Sodium 130 mmol/L (137-145)
[2019-06-17 12:14] VITALS: BP 87/66; PULSE 105; RESP 20; O2SAT 100
[2019-06-17 12:18] LABS: NT Pro B Type Natriuretic Pept > 35000 PG/ML (5-100)
[2019-06-17 12:47] VITALS: BP 81/67; BP 84/67; BP 84/69; PULSE 105; PULSE 106
[2019-06-17 13:45] VITALS: BP 86/59; PULSE 101; RESP 18; O2SAT 99
[2019-06-17 14:21] VITALS: BP 87/67; PULSE 101
--- NOTE | 2019-06-17 14:59 | PC.NURSE ---
Pt's family requesting hospice care. ED long term care social worker contacted. Given list of Hospice facilities. Pt's son to pick a hospice. He elected to go with [facility]. Contacted ED educational resource coordinator who will place call with [facility].
--- NOTE | 2019-06-17 15:14 | PCCCNOTE ---
1425 - After having emailed ED charge nurse the list of hospice agencies and family/patient having selected [facility], a referral was place to [facility] for possible admission to their service. 1449 - Call returned from [facility]. Brief patient history and pt demographics was given to the site coordinator at [facility]. Face sheet, ED physician documentation, xray and ekg results were faxed to [facility] per their request. 1504 - someone from [facility] should be at the hospital to meet with patient/family within the hour. Should patient wish to continue dialysis an order for Palliative Care, not Hospice Care should be placed.
[2019-06-17 17:54] VITALS: BP 94/78; PULSE 78; RESP 20; O2SAT 99
== END 2019-06-17 17:56 | disposition home or self-care (01) ==
PROVIDERS: Emergency Medicine Emergency Medical Services; Emergency Provider Family Medicine; PCP Family Medicine
DX: R53.81 Other malaise (principal); I95.9 Hypotension, unspecified; E11.22 Type 2 diabetes mellitus with diabetic chronic kidney disease; I13.2 Hypertensive heart and chronic kidney disease with heart failure and with stage 5 chronic kidney disease, or end stage renal disease; I50.40 Unspecified combined systolic (congestive) and diastolic (congestive) heart failure; N18.6 End stage renal disease; Z99.2 Dependence on renal dialysis; N40.0 Benign prostatic hyperplasia without lower urinary tract symptoms; Z86.73 Personal history of transient ischemic attack (TIA), and cerebral infarction without residual deficits; K21.9 Gastro-esophageal reflux disease without esophagitis; E87.1 Hypo-osmolality and hyponatremia; I25.10 Atherosclerotic heart disease of native coronary artery without angina pectoris; I25.2 Old myocardial infarction; Z95.1 Presence of aortocoronary bypass graft; E78.5 Hyperlipidemia, unspecified; E03.9 Hypothyroidism, unspecified; M10.00 Idiopathic gout, unspecified site; I25.5 Ischemic cardiomyopathy; M19.90 Unspecified osteoarthritis, unspecified site; I48.0 Paroxysmal atrial fibrillation; G25.81 Restless legs syndrome; Z95.810 Presence of automatic (implantable) cardiac defibrillator; Z95.5 Presence of coronary angioplasty implant and graft; I48.92 Unspecified atrial flutter; Z79.01 Long term (current) use of anticoagulants; R00.0 Tachycardia, unspecified; I44.7 Left bundle-branch block, unspecified; I49.3 Ventricular premature depolarization; I34.0 Nonrheumatic mitral (valve) insufficiency; Z85.72 Personal history of non-Hodgkin lymphomas; F41.9 Anxiety disorder, unspecified; N18.9 Chronic kidney disease, unspecified; D63.1 Anemia in chronic kidney disease
CPT/HCPCS: 36415; 71045; 80053; 83605; 83690; 83880; 85025; 85610; 85730; 86140; 87040; 93005; 96360; 96361; 99283; J7040